=== PATIENT | female | born 1960 | race Caucasian/White ===

== ENCOUNTER 2021-06-22 21:07 | Observation (INO) | payer OTHER ==
[2021-06-22] MEDS ORDERED: ONDANSETRON 4 MG/2 ML VIAL ONE (21:28)
[2021-06-22] MEDS ORDERED: HYDROMORPHONE HCL 2 MG/ML inj ONE (21:28)
[2021-06-22 22:48] LABS: Absolute Lymphocytes (CBC) 0.9 K/uL (0.7-4.9); Basophils % 0.4 % (0-1.3); Hematocrit 33.7 % (36.0-45.0); Lymphocytes % 10.3 % (15.3-44.8); MPV 8.4 fL (7.6-11.3); RBC Red Blood Cell Count 4.54 M/uL (3.86-4.86)
[2021-06-22 22:57] LABS: ALT/SGPT 24 U/L (12-78); AST/SGOT 18 U/L (15-37); Albumin 2.6 g/dL (3.4-5.0); Alkaline Phosphatase 147 U/L (45-117); BUN Blood Urea Nitrogen 11 mg/dL (7-18); Bicarbonate 24 mmol/L (21-32); Bilirubin Direct 0.2 mg/dL (0-0.2); Bilirubin Total 0.4 mg/dL (0.2-1.0); Glucose Level 139 mg/dL (74-106); Potassium 3.8 mmol/L (3.5-5.1); Protein, Total 6.9 g/dL (6.4-8.2); Sodium Level 140 mmol/L (136-145)
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
--- NOTE | 2021-06-23 07:17 | RAD REPORT ---
EXAM DESCRIPTION: RADTib Fib Left06/22/2021 10:19 pm CLINICAL HISTORY: Left leg pain FINDINGS: Very suboptimal views of the right knee. Mild depression of the tibial plateau. It is recommended that the patient have complete three-view se timothy of the right knee with better positioning for further evaluation. Bones are osteoporotic.
--- NOTE | 2021-06-23 07:18 | RAD REPORT ---
EXAM DESCRIPTION: RAD - Tib Fib Right - 06/22/2021 10:19 pm CLINICAL HISTORY: Right leg pain FINDINGS: No acute fracture seen of the mid and distal tibia/fibula. Bones are osteoporotic
[2021-06-23] MEDS ORDERED: IBUPROFEN 200 MG TAB PO ONE (18:44)
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
[2021-06-23 21:12] VITALS: BMI 23.6
[2021-06-23 21:28] VITALS: O2SAT 97
[2021-06-23] MEDS ORDERED: ACETAMINOPHEN 500 MG TAB PO PRN (21:42)
[2021-06-23] MEDS ORDERED: ONDANSETRON 4 MG/2 ML VIAL IV PRN (21:42)
[2021-06-23] MEDS: INSULIN -REGULAR HUMAN 50 UNIT/0.5 ML ML SQ SCH (21:42)
[2021-06-23] MEDS: TRAMADOL HCL 50 MG TAB PO PRN (22:28)
[2021-06-24] MEDS: TRAMADOL HCL 50 MG TAB PO PRN (00:52)
[2021-06-24] MEDS: INSULIN -REGULAR HUMAN 50 UNIT/0.5 ML ML SQ SCH ×2 (07:30→11:30)
[2021-06-24 07:54] LABS: Absolute Lymphocytes (CBC) 1.1 K/uL (0.7-4.9); Basophils % 0.5 % (0-1.3); Hematocrit 32.4 % (36.0-45.0); Lymphocytes % 18.4 % (15.3-44.8); MPV 8.3 fL (7.6-11.3); RBC Red Blood Cell Count 4.43 M/uL (3.86-4.86)
[2021-06-24] MEDS ORDERED: ENOXAPARIN 40 MG/0.4 ML SQ SCH (09:00)
[2021-06-24 11:14] LABS: ALT/SGPT 20 U/L (12-78); AST/SGOT 19 U/L (15-37); Albumin 2.4 g/dL (3.4-5.0); Alkaline Phosphatase 111 U/L (45-117); BUN Blood Urea Nitrogen 14 mg/dL (7-18); Bicarbonate 25 mmol/L (21-32); Ferritin 161.2 ng/mL (8-388); Folic Acid, (Folate) 9.4 ng/mL (3.1-17.5); Glucose Level 114 mg/dL (74-106); HDL Cholesterol 37 mg/dL (40-60); LDL Cholesterol, Calculated 46 (<130); Phosphorus 2.7 mg/dL (2.5-4.9); Potassium 3.7 mmol/L (3.5-5.1); Protein, Total 6.7 g/dL (6.4-8.2); Sodium Level 139 mmol/L (136-145); Transferrin 191 mg/dL (200-360)
[2021-06-24 12:16] VITALS: BP 119/67; TEMP 97.3
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
== END 2021-06-24 16:10 | disposition home or self-care (01) ==
LOC: ER 21:07 → ERHOLD 06-23 19:04 → 2ND 06-23 20:53
PROVIDERS: ADMIT Internal Medicine; ATTEND Internal Medicine
DX: M79.605 Pain in left leg (principal); M79.604 Pain in right leg; D50.9 Iron deficiency anemia, unspecified; Z99.3 Dependence on wheelchair; Z59.00 Homelessness unspecified; J44.9 Chronic obstructive pulmonary disease, unspecified; E46 Unspecified protein-calorie malnutrition; Z68.23 Body mass index [BMI] 23.0-23.9, adult; Z20.822 Contact with and (suspected) exposure to COVID-19
CPT/HCPCS: 85025 ×2; 80048; 36415 ×2; 83735; 84100; 80061; 82947 ×2; 80076; 84443; 83036; 84439; 82728; 82746; 82607; 83540; 80053; 84466; 73590 ×2; 96375; 96374; 99284; U0003; J1650; J1170; J2405; G0378 ×3

== ENCOUNTER 2023-10-24 16:44 | Emergency (ER) | payer OTHER ==
--- OUTSIDE RECORDS SUMMARY | 2023-10-24 16:47 | XMS REPORT | Continuity of Care Document ---
Author Name Unknown Address [address] [place] [address] [facility] thconnect Address [address] [place] [address] Care Team Providers Care Orthodontist Assistant Name Role Phone Pcp, Patient Does Not Have A Primary Care Physic james Peggy Hutton Attending Clinician Unavailable Ousmane Samaniego Attending Clinician Unavailable Kay Chan MD Attending Clinician [phone] Doctor Unassigned, [place] Attending Clinician U gustavo Garcia RN, Lauren Caballero Attending Clinician Unavail able KAY CHAN Attending Clinician UnavailElmer Gabriel MD Attending Clinician [phone] Phoebe Dubois LMSW Attending Clinician [phone] [place] Attending Clinician Unavailable Toshia Gary MD Attending Clinician Alon RAMOS, Arthur Correa Attending Clinician [phone] Tre Valverde MD Attending Clinician [phone] [place] DO Attending Clinician [phone] Ernesto HUYNH, Vivek B Attending Clinician [phone] Galindo Escamilla MD Attending Clinician [phone] GALINDO ESCAMILLA Attending Clinician Unavailable Peggy Hutton Admitting Clinician Unavailable Physician, No Primary or Family Admitting Clinic james Unavailable KAY CHAN Admitting Clinician UnavailKay Bill MD Admitting Clinician [phone] TOSHIA GARY Admitting Clinician UnavailTohsia Rodriguez MD Admitting Clinician [phone] Payers Payer Name Policy Type Policy Number Effective Date Expirati on Date Source Problems Condition Name Condition Details Condition Category Status Onset Date Resolution Date Last Treatment Date Treating Clinician Comments Source Trauma Trauma Disease Active 2022-07 0- 00:00: 00 [facility] S/P AKA (above knee amputation ) unilateral , right S/P AKA (above knee amputation ) unilateral , right Disease Active 2-18 00:00: 00 Overview: Formattin g of this note might be different from the original. 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 Disease Active 2-12 00:00: 00 [facility] Homeless Homeless Disease Active 2-12 00:00: 00 [facility] Noncomplia nce by refusing interventi on or support Noncomplia nce by refusing interventi on or support Disease Recurre nce 2-12 00:00: 00 [facility] Personalit y disorder Personalit y disorder Disease Active 2-12 00:00: 00 [facility] Total self-care deficit Total self-care deficit Disease Recurre nce 2-12 00:00: 00 [facility] 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 Disease Active 2-04 00:00: 00 [facility] Atypical femoral fracture, unspecifie d, initial encounter for fracture Atypical femoral fracture, unspecifie d, initial encounter for fracture Disease Active 2-03 00:00: 00 [facility] Allergies, Adverse Reactions, Alerts Allergy Name Allergy Type Status Severity Reaction(s) Onset Date Inactive Date Treating Clinician Comments Source No Known Allergie s DA Active U 3-09 00:00: 00 [facility] Penicill ins Propensi ty to adverse reaction s Active Rash 2- 00:00: 00 [facility] PENICILL INS Drug Class Active Med Rash 2-02 00:00: 00 [facility] Penicill ins Propensi ty to adverse reaction s Active Rash 2- 00:00: 00 [facility] Social History Social Habit Start Date Stop Date Quantity Comments Source Exposure to SARS-CoV-2 (event) Not sure [facility] History of tobacco use Cigarette Smoker [facility] of Social function 2023-04-30 00:00:00 2023-04-30 00:00:00 [facility] Tobacco use and exposure 2023-04-28 00:00:00 2023-04-28 00:00:00 Smokeless tobacco non-user [facility] Sex Ass[birth year] At 1960 00:00:00 1960 00:00:00 [facility] Smoking Status Start Date Stop Date Source Smokes tobacco daily 2023-04-28 00:00:00 [facility] Medications Ordered Medication Name Filled Medication Name Start Date Stop Date Current Medication? Ordering Clinician Indication Dosage Frequency Signature (SIG) Comments Components Source HYDROcodone -acetaminop hen 5-325 mg tablet 2022-07 00:00: 00 Yes 4647 1{tbl} Take 1 tablet by mouth every 6 (six) hours as needed for Pain (scale 4-6) for up to 7 doses. Indication s: acute pain [facility] acetaminoph en 325 mg tablet 2022-07 00:00: 00 Yes [id number] 650mg Take 2 tablets by mouth every 6 (six) hours as needed for Pain (scale 4-6). [facility] ibuprofen 400 mg tablet 2022-07 00:00: 00 Yes [id number] 400mg Take 1 tablet by mouth every 6 (six) hours as needed for Pain (scale 4-6). [facility] methocarbam oL 500 mg tablet 2022-07 00:00: 00 Yes [id number] 500mg Take 1 tablet by mouth 3 (three) times daily as needed for Other (muscle spasms). [facility] HYDROcodone -acetaminop hen (NORCO) 5-325 mg tablet 2022-07 00:00: 00 Yes 4647 1{tbl} Take 1 tablet by mouth every 6 (six) hours as needed for Pain (scale 7-10) for up to 15 doses. Indication s: acute pain [facility] cephALEXin 250 mg capsule 2022-07 00:00: 00 05-08 04:59 :00 No [id number] 500mg Take 2 capsules by mouth 4 (four) times daily for 3 days. [facility] cephALEXin (KEFLEX) capsule 500 mg 2022-07 21:00: 00 05-06 20:59 :00 No 500mg 500 mg, Oral, QID, 28 doses, First dose on 04/29/23 at 1600, Last dose on 05/06/23 at 1200, HUSEYIN
Re ason for Anti-Infec tive: Empiric Non-Surgic al Prophylaxi s
Durat ion of therapy: 5 days
Sp ecific indication : 7 days [facility] enoxaparin (LOVENOX) injection 30 mg 2022-07 01:00: 00 Yes 30mg 30 mg, Subcutaneo us, Q12H, First dose on 04/28/23 at 2000, Until Discontinu ed, Routine [facility] ibuprofen (IBU) tablet 400 mg 2022-07 23:00: 00 Yes 400mg 400 mg, Oral, Q6H, First dose on 04/28/23 at 1800, Until Discontinu ed, Routine [facility] morpHINE (2 mg/mL) injection 4 mg 2022-07 19:44: 02 04-30 17:06 :24 No 4mg 4 mg, Slow IV Push, Q4HPRN, Starting on 04/28/23 at 1444, Until 04/30/23 at 1206, Routine, Pain (scale 7-10), Pain unrelieved by scheduled analgesics [facility] ceFAZolin (ANCEF) 2,000 mg in NaCl 0.9% (NS) 100 mL MINI-BAG 2022-07 10:00: 00 04-28 10:35 :00 No 2000mg 2,000 mg, Intravenou s, ONCE, 1 dose, On 04/28/23 at 0500, Administer over 30 Minutes, 100 mL
Reas on for Anti-Infec tive: Empiric Non-Surgic al Prophylaxi s
Durat ion of therapy: 72 hours [facility] FENTanyl PF (SUBLIMAZE (PF)) injection 100 mcg 2022-07 08:45: 00 04-28 07:35 :00 No 100ug 100 mcg, Slow IV Push, ONCE, 1 dose, On 04/28/23 at 0345, Routine [facility] FENTanyl PF (SUBLIMAZE (PF)) injection 50 mcg 2022-07 07:45: 00 04-28 06:52 :00 No 50ug 50 mcg, Slow IV Push, ONCE, 1 dose, On 04/28/23 at 0245, HUSEYIN [facility] methocarbam oL (ROBAXIN) tablet 500 mg 2022-07 07:00: 00 Yes 500mg 500 mg, Oral, QID, First dose on 04/28/23 at 0200, Until Discontinu ed, Routine [facility] acetaminoph en (TYLENOL) tablet 650 mg 2022-07 07:00: 00 Yes 650mg 650 mg, Oral, Q6H, First dose on 04/28/23 at 0200, Until Discontinu ed, Routine [facility] HYDROcodone -acetaminop hen (NORCO 5) 5-325 mg tablet 1 tablet 2022-07 06:50: 40 Yes 1{tbl} 1 tablet, Oral, Q6HPRN, Starting on 04/28/23 at 0150, Until Discontinu ed, Routine, Pain (scale 4-6) [facility] HYDROcodone -acetaminop hen 5-325 mg tablet 08-29 00:00: 00 09-02 05:59 :00 No 4647 1{tbl} Take 1 tablet by mouth every 6 (six) hours as needed for Pain (scale 7-10) for up to 3 days. Indication s: acute pain [facility] No known medications 08-12 23:44: 31 No [facility] Immunizations Ordered Immunization Name Filled Immunization Name Date Status Comments Source TD Pres-Free Unknown Completed [facility] TD Pres-Free Unknown Completed [facility] TD Pres-Free Unknown Completed [facility] TD Pres-Free Unknown Completed [facility] Vital Signs Vital Name Observation Time Observation Value Comments S mai Systolic blood pressure 2023-05-05 13:07:00 130 mm[Hg] [facility] Diastolic blood pressure 2023-05-05 13:07:00 64 mm[Hg] [facility] Heart rate 2023-05-05 13:07:00 69 /min [facility] Body temperature 2023-05-05 13:07:00 36.06 Litzy [facility] Respiratory rate 2023-05-05 13:07:00 16 /min [facility] Oxygen saturation in Arterial blood by Pulse oximetry 2023-05-05 13:07:00 96 /min [place] [facility] Body height 2023-05-03 13:16:00 152.4 cm [facility] Body weight 2023-05-03 13:16:00 54.432 kg [facility] BMI 2023-05-03 13:16:00 23.44 kg/m2 [facility] Procedures Procedure Date / Time Performed Performing Clinician Source EXTERNAL PROVIDER RECORDS 2023-05-10 05:01:00 Doctor Unassigned, [place] [facility] PHOSPHORUS 2023-05-02 11:17:00 Óscar Liu Lita [facility] MAGNESIUM 2023-05-02 11:17:00 Óscar Liu [facility] BASIC METABOLIC PANEL (NA, K, CL, CO2, GLUCOSE, BUN, CREATININE, CA) 2023-05-02 11:17:00 Suma Liu [facility] PHOSPHORUS 2023-04-30 09:42:00 [facility] ABORH CONFIRMATION (LAB ONLY) 2023-04-30 01:28:00 Elmer Duran [facility] MRSA / MSSA SCREEN BY PCRJANES 2023-04-29 09:41:00 Iban Allred [facility] PHOSPHORUS 2023-04-29 09:40:00 [facility] MAGNESIUM 2023-04-29 09:40:00 Brigida [facility] BASIC METABOLIC PANEL (NA, K, CL, CO2, GLUCOSE, BUN, CREATININE, CA) 2023-04-29 09:40:00 Iban Allred [facility] CBC WITH DIFF 2023-04-29 09:40:00 Iban Allred [facility] javier [facility] XR TIBIA FIBULA 2 VW LEFT 2023-04-28 09:20:00 Saravanan Alonzo [facility] XR TIBIA FIBULA 2 VW LEFT 2023-04-28 05:58:47 Lori Silveira [facility] XR FOOT <3 VW LEFT 2023-04-28 05:58:34 Lori Silveira [facility] XR CHEST 1 VW 2023-04-28 05:39:40 Ra brenda Silveira [facility] LIPASE 2023-04-28 05:33:00 Elmre Duran [facility] COMP. 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 2021-09-12 06:01:00 Doctor Astrid ssigned, [place] [facility] Encounters Start Date/Time End Date/Time Encounter Type Admission Type Attending Clinicians Care Facility Care Department Encounter ID Source 2023-09-15 01:02:00 2023-09-20 15:31:00 Inpatient EM BrennenPeggy HCAPM MEDI.01 [id number] [facility] 2023-09-15 08:19:00 2023-09-15 08:19:00 Outpatient Ousmane Samaniego HCACL LABO [id number] [facility] 2023-05-10 00:00:00 2023-05-10 00:00:00 Letter (Out) Kay Chan [facility] 1.840.114 350.1.13.10 4.2.7.2.686 [id number] [facility] 2023-05-10 00:00:00 2023-05-10 00:00:00 Orders Only Doctor Unassigned, [place] [facility] 1.2840.114 350.1.13.10 4.2.7.2.686 [id number] [facility] 2023-05-07 00:00:00 2023-05-07 00:00:00 Transition of Care GabbyLauren jacob [facility] 1.0.114 350.1.13.10 4.2.7.2.686 [id number] [facility] 2023-04-27 23:59:00 2023-05-05 15:15:00 Outpatient T KAY CHAN [facility] STR [id number] [facility] 2023-04-27 23:59:00 2023-05-05 15:15:00 Hospital Encounter Elmer Duran [facility] 1..114 350.1.13.10 4.2.7.2.686 [id number] [facility] 2021-09-12 00:00:00 2021-09-12 00:00:00 Orders Only Doctor Unassigned, [place] [facility] 1..114 350.1.13.10 4.2.7.2.686 [id number] [facility] 2021-08-31 00:00:00 2021-08-31 00:00:00 Patient Outreach Phoebe Dubois [facility] 1..114 350.1.13.10 4.2.7.2.686 [id number] [facility] 2021-08-30 00:00:00 2021-08-30 00:00:00 Transition of Care Anshu Garcianomi YOUNG 1.0.114 350.1.13.10 4.2.7.2.686 [id number] [facility] 2021-08-30 00:00:00 2021-08-30 00:00:00 Orders Only Doctor Unassigned, [place] [facility] 1.840.114 350.1.13.10 4.2.7.2.686 [id number] [facility] 2021-08-11 07:47:00 2021-08-29 17:30:00 Inpatient [place] [facility] [id number] [facility] 2021-08-11 07:47:00 2021-08-29 17:30:00 Hospital Encounter Toshia Gary, [facility] 1.840.114 350.1.13.10 4.2.7.2.686 [id number] [facility] 2021-08-11 07:47:00 2021-08-29 17:30:00 Inpatient X ROB[facility]E [facility] [id number] [facility] 2021-08-23 07:40:00 2021-08-23 10:25:00 Surgery Toshia Gary [facility] 1.840.114 350.1.13.10 4.2.7.2.686 [id number] [facility] 2021-08-10 20:22:00 2021-08-11 06:24:00 Emergency [facility]rozco [facility] 1.840.114 350.1.13.10 4.2.7.2.686 [id number] [facility] 2021-08-10 20:22:00 2021-08-11 06:24:00 Emergency X GALINDO ESCAMILLA [facility] ERT [id number] [facility] Results Test Description Test Time Test Comments Results Resul t Comments Source - XR FOOT 3+V LT 2023-09-16 08:40:00 [facility] 1960 Sex: F Name: FLORY SHAFER [place] : 1960 Age/S: 63 / F [address] [place] Unit #: [id number] Loc: [place] [address] Phys: Liberty Burgess DPM Acct: [id number] Dis Date: Status: ADM IN PHONE #: [phone] Exam Date: 09/15/2023 1415 FAX #: Reason: wound EXAMS: CPT: [id number] XR FOOT 3+[place] [address] Fluoro Time: DAP (Gy m2): Air Kerma (mGy): Left foot, 3 views Location Code: D4 CLINICAL HISTORY: wound COMMENTS: Marked osteopenia obscures the detail of the study. There is a subacute to chronic appearing fracture through the mid shaft of the 1st metatarsal. Moderate arthrosis seen throughout the MTP and interphalangeal joints. Prominent plantar and retrocalcaneal enthesophytes are seen with diffuse soft tissue swelling. IMPRESSION: 1. Limited examination due to the extensive osteopenia with diffuse soft tissue swelling and arthrosis along with subacute to chronic appearing transverse fracture through the 1st metatarsal shaft. at 0840 Reported and signed by: Carl Kuo M.D. CC: Peggy Hutton MD; Liberty Burgess DPM PAGE 1 Signed Report Name: FLORY SHAFER [place] : 1960 Age/S: 63 / F [address] [place] Unit #: [id number] Loc: [place] [address] Phys: Liberty Burgess DPM Acct: [id number] Dis Date: Status: ADM IN PHONE #: [phone] Exam Date: 09/15/2023 1415 FAX #: Reason: wound EXAMS: CPT: [id number] XR FOOT 3+[place] [address] Fluoro Time: DAP (Gy m2): Air Kerma (mGy): (Continued) Technologist: Melonie Coyle, RT(R) Trnscb Date/Time: 09/16/2023 (08) [email or web address] Orig Print D/T: S: 09/16/2023 (0439) PAGE 2 Signed Report - XR TIBIA/FIBULA 2 V LT 2023-09-15 15:36:00 [facility] 1960 Sex: F Name: FLORY SHAFER [facility] : 1960 Age/S: 63 / F [address] [place] Unit #: [id number] Loc: [place] [address] Phys: Jenifer,Dhvanil K DPM Acct: [id number] Dis Date: Status: ADM IN PHONE #: [phone] Exam Date: 09/15/2023 1420 FAX #: Reason: fracture EXAMS: CPT: [id number] XR TIBIA/FIB[place] [address] Fluoro Time: DAP (Gy m2): Air Kerma (mGy): Left tibia/fibula, 2 views. Location code: D4 CLINICAL HISTORY: fracture COMPARISON: None. COMMENTS: AP and lateral views of the left tibia and fibula demonstrate fractures of the mid to distal thirds of the tibia and fibula with some sclerosis and early healing suggesting subacute fractures. Soft tissue swelling is noted. No other fractures seen. IMPRESSION: 1. Fractures of the mid to distal thirds of the tibia and fibula with minimal displacement. at 1536 Reported and signed by: Carl Kuo M.D. CC: Peggy Hutton MD; Liberty Burgess DPM PAGE 1 Signed [facility] 1960 Age/S: 63 / F [address] [place] Unit #: [id number] Loc: [place] [address] Phys: Liberty Burgess DPMadeline Acct: [id number] Dis Date: Status: ADM IN PHONE #: [phone] Exam Date: 09/15/2023 1420 FAX #: Reason: fracture EXAMS: CPT: [id number] XR TIBIA/FIBUL[place] 2 [place] [address] Fluoro Time: DAP (Gy m2): Air Kerma (mGy): (Continued) Technologist: Melonie Coyle RT(R) Trnscb Date/Time: 09/15/2023 (153) [email or web address] Orig Print D/T: S: 09/15/2023 (1539) PAGE 2 Signed Report - [facility] 2023-09-15 08:53:00 [facility] 1960 Sex: F Name: FLORY SHAFER [place] : 1960 Age/S: 63 / F [address] [place] Unit #: [id number] Loc: [place] [address] Phys: AsamahSravanthi Acct: [id number] Dis Date: Status: ADM IN PHONE #: [phone] Exam Date: 09/15/2023814 FAX #: Reason: left foot wound EXAMS: CPT: [id number] DUP LE ART SHIVA [address] BILATERAL LOWER EXTREMITY ARTERIAL DOPPLER: Location code: D4 CLINICAL HISTORY: Bilateral leg pain with left foot wound TECHNIQUE: Stoll scale, color, and duplex spectral waveform analysis sonography of the arteries of the bilateral lower extremities was performed. No prior study is available for comparison. FINDINGS: Previous BKA amputation on the right. Triphasic waveforms in the right common femoral and deep femoral arteries with monophasic waveforms in plaque seen in the superficial femoral artery proximally and mid. No high velocity stenosis on the right. On the left there are dampened monophasic waveforms throughout extending from the common femoral down to the dorsalis pedis artery with nonvisualization possible occlusion of the peroneal artery. Moderate diffuse plaque seen. No high velocity stenosis noted. 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 Previous BKA on the right. at 0853 Reported and signed by: Carl Kuo M.D. CC: Sravanthi Simms; Ousmane Samaniego MD Technologist: Esther Marquez [facility] Date/Time: 09/15/2023 (0853) Francis1 PAGE 1 Signed Report Name: FLORY SHAFER [place] : 1960 Age/S: 63 / F [address] [place] Unit #: [id number] Loc: [place] [address] Phys: Sravanthi Simms Acct: [id number] Dis Date: Status: ADM IN PHONE #: [phone] Exam Date: 09/15/2023814 FAX #: Reason: left foot wound EXAMS: CPT: [id number] DUP LE ART SHIVA 82417 (Continued) Orig Print D/T: S: 09/15/2023 (0856) Probe: PAGE 2 Signed Report [facility] 12:53:54* Test Item Value Reference Range Interpretation Comme nts PHOSPHORUS (test code = 3644599157) 3.4 mg/dL 2.5-5.0 Lab Interpretation (test cod e = 17726-0) Normal [facility] (NA, K, CL, CO2, GLUCOSE, BUN, CREATININE, CA)2023-05-02 12:53:53* Test Item Value Reference Range Interpretation Comme nts NA (test code = 0797715099) 139 mmol/L 135-145 K (test code = 9533129245) 4.1 mmol/L 3.5-5.0 CL (test code = 4721075656) 107 mmol/L 98-108 CO2 TOTAL (test code = 7407388938) 26 mmol/L 23-31 AGAP (test code = 2157607916) 6 2-16 BUN (test code = 1640450301) 11 mg/dL 7-23 GLUCOSE (test code = 5041403824) 115 mg/dL 70-110 H CREATININE (test code = 9412743274) 0.30 mg/dL 0.50-1.04 L CALCIUM (test code = 8554732766) 8.3 mg/dL 8.6-10.6 L eGFR (test code = 1700609778) 226.2 mL/min/1.73m2 DODIE (test code = DODIE) Association of Glomerular Filtration Rate (GFR) and Staging of Kidney Disease* + --+ --+ ------+| GFR (mL/min/1.73 m2) ?| With Kidney Damage ?| ?Without Kidney Damage+ --------+ --------+ +| ?>90 ?| ?Stage one ?| ? Normal ?+ ---+ ---+ -------+| ?60-89 ?| ?Stage two ?| ? Decreased GFR ? + --+ --+ ------+| ?30-59 ?| ?Stage three ?| ? Stage three ? + --+ --+ ------+| ?15-29 ?| ?Stage four ? | ? Stage four ?+ ---+ ---+ -------+| ?<15 (or dialysis) ? ?| ?Stage five ? | ? Stage five ?+ ---+ ---+ -------+ *Each stage assumes the associated GFR level has been in effect for at least three months. ?Stages 1 to 5, with or without kidney disease, indicate chronic kidney disease. Notes: Determination of stages one and two (with eGFR >59mL/min/1.73 m2) requires estimation of kidney damage for at least three months as defined by structural or functional abnormalities of the kidney, manifested by either:Pathological abnormalities or Markers of kidney damage (including abnormalities in the composition of the blood or urine or abnormalities in imaging tests). Lab Interpretation (test code = 70717-8) Abnormal [facility] Time / [id number] 06:00:36* Test Item Value Reference Range Interpretation Comme [facility] PROTIME PATIENT (test code = 5964-2) 12.4 See_Comment [Automated StudioSnaps] The system which generated this result transmitted reference range: 10.1 - 12.6 Seconds. The reference range was not used to interpret this result as normal/abnormal. INR (test code = 6301-6) 1.1 Normal INR <1.1; Warfarin Therapeutic range 2.0 to 3.0 or 2.5 to 3.5, depending upon the indications. Lab Interpretation (test code = 91993-2) Normal [facility] HospitalaPTT2023-10-21 06:00:36* Test Item Value Reference Range Interpretation Comme [facility] APTT Patient (test code = 3173-2) 31 See_Comment [Automated StudioSnaps] The system which generated this result transmitted reference range: 26 - 36 Seconds. The reference range was not used to interpret this result as normal/abnormal. Lab Interpretation (test code = 69806-7) Normal [facility] Notes Date/Time Note Provider Source 2023-10-13 09:38:00 [id number]/v [id number] 6-[address] [address] PATIENT NAME: FLORY SHAFER ADMIT DATE: 09/15/23ACCOUNT NO: [id number] ROOM NO: [id number] AGE: 63 REPORT TYPE: 360 - QUERY RESPONSE DOCUMENT SEX: F ADMITTING PHYSICIAN: Peggy Hutton MD ATTENDING PHYSICIAN: Peggy Hutton MD Provider Query QUERY TEXT: Relationship Procedure Condition 360MD Query related questions should be directed to: [facility] [place] Coding query helpline Please clarify the etiology of the diagnosis [CELLULITIS] and its relationship, if any, to the procedure [AKA AMPUTATION]. The classification system provides these guidelines for intraoperative and/or post procedure conditions/diagnoses:-- Not all post procedure conditions are classified as complications.- There must be an unexpected or abnormal occurrence.- There must be a documented cause and effect relationship between the condition and the care.- There must be an indication that it is a complication-- The term ''complication'' as used in ICD-10-CM does not imply that improper or inadequate care is responsible for the problem-- There is no time limit for development of complication-- The term postoperative requires clarity to determine if it is a complication or condition resulting from medical/surgical care that is a residual condition of the procedure.-- When laceration/tear/enterotomy occurs during a procedure, the physician must provide clarity as to whether the tear was an incidental occurrence inherent to the procedure or clinically significant (complication).-- When hemorrhage occurs with procedure, clarify if it is expected or unexpected as well as abnormal amount of blood loss and the organ or tissue structure involved (i.e., subcutaneous, fascia, specific organ, specific artery/vein, etc.). The patient's Clinical Indicators include: Diagnosis, Assessment Plan:Problem List/A P:1.Cellulitis of left leg 2.Gangrene of left foot 3.History of right above knee amputation-H/P.Left foot ischemic ulceration with surrounding cellulitis.There is aconcern of underlying osteomyelitis.-PODIARTY CONSULT 09/15/2023ssessment:1.Left foot infected wound with ischemic changes, r/o osteomyelitis.2.PVD.3.Recent left tib-fib fracture.-Infect disease 09/16/2023 #Right AKA-[place] still present, according to pt states chani been on for 2 years.Shehas refused the removal of the chani-wound care provider consulted. #H/O Osteogenesis imperfecta- immobility-discharge summaryOptions provided:-- Routine, inherent or integral-- Unexpected or abnormal-- Unrelated, Please specify the cause if known.-- Other - I will add my own diagnosis-- Dismiss - Not applicable / Not valid-- Dismiss - Clinically unable to determine / Unknown-- Assign to another provider QUERY RESPONSE: This was unrelated to procedure/due to other cause. Query created by: Jalil Lynn on 09/22/2023 12:33 AM at 0938 PATIENT NAME: FLORY SHAFER noteL.[id number] for patient okpnFPKPMGHVZNRCWY2904-63-71X80:39:28 [facility] 2023-09-20 21:01:00 [id number]+tjpJG2AZ7 fCpC/R0cTX55Z+sblJy8HUMx4Tv9565-75-32M72:01:00 [facility] ([facility])Hospitalist Discharge SummaryREPORT#:[id number] REPORT STATUS: SignedREPORT INITIALIZATION DATE:09/20/23 TIME:2100 PATIENT: FLORY SHAFER UNIT #: [id number]#: [id number] [address] [birth year] AGE: 63 SEX: F ATTEND: Peggy Hutton MDA AUTHOR: Peggy Hutton MDREPT SERVICE DT/TIME: 09/20/232100* ALL edits or amendments must be made on the electronic/computer document * General InformationDate of admission:Observation Start Date: Date of admission: 09/15/23 Discharge date: 09/20/23Admission diagnosis:Left foot cellulitis and gangreneRight AKAHistory of ulcer diseaseTib-fib fractureDischarge diagnosis:Left foot cellulitis and gangreneRight AKAHistory of ulcer diseaseTib-fib fractureHospital course:Ms. Shafer is 63-year-old female with history of osteogenesis imperfecta, right AKA who presented to the hospital with left foot cellulitis and gangrene. Patient was followed closely by volunteer services director. She however continued to refuse care while inpatient. She had notable tib-fib fracture of the left extremity. Patient is bedbound and nonweightbearing. She remained stable for discharge.Consultants: burn/wound, podiatry ObjectiveVS/I OLast Documented: Result Date Time Pulse Ox 98 09/19 07 B/P 102/69 09/19 07 B/P Mean 80 09/19 07 O2 Delivery Room air 09/19 733 Temp 98.2 09/19 733 Pulse 90 09/19 0734 Resp 16 09/19 07 O2 Flow Rate 2 09/14 0400 24 hour I O ending at 0700: 09/19 0700 09/18 1900 Intake Total 2436 600 Output Total 2500 Balance -64 600 Intake, Free 1000 Water Intake, Oral 1200 600 Intake, Other 236 Number 1 Bowel Movements Output, Urine 2500 Head/Eyes: atraumatic, normocephalicENT: normal dentition, normal ear left, normal ear right, normal nose, normal pharynx, normal sinusNeck: full range of motion, non-tender, normal thyroid, supple/no meningismus, no bruit/NL carotids, no JVD, no masses or swellingCardiovascular: normal capillary refill, regular rate rhythmRespiratory: symmetric expansion, no distressExtremities: no edemaNeuro/TECHNOLOGY AUDITOR: alert, oriented X 3Skin: abnormal color Discharge Instructions PCPDischarge to: Home Health wPlan of CareAdditional Discharge Routines: PCP Follow-Up, Aerospace Manager Follow-UpDiet: CardiacActivity: Light Duty, No Weight Bearing Left Follow-up AppointmentsPCP follow-up: PCP: Jordan Roberts md PCP follow up timeframe: In 1-2 weeksConsulting provider 1: Provider 1: Vega Soto III, MD Specialty: Orthopaedic Surgery Consult follow up timeframe: In 1-2 weeks at 1217 RPT #: [id number] OF REPORT DSDischarge mysejlc4190-27-27E97:01:00L.[id number] ailable for patient ilrwKHNZYBMQUNKDHT2271-18-20W97:17:57 [facility] 2023-09-20 17:40:00 [id number] uQbRBGq6eaPkFfaY3OdrjVb+3VL7904-70-46O61:40:00 [facility] ([facility])Wound Care Progress NoteREPORT#:[id number] REPORT STATUS: SignedREPORT INITIALIZATION DATE:09/20/23 TIME:1739 PATIENT: FLORY SHAFER UNIT #: [id number]#: [id number] [address] [birth year] AGE: 63 SEX: F ATTEND: Peggy Huttno [facility] AUTHOR: Ángel Dawn MDREPT SERVICE DT/TIME: 09/20/23 174* ALL edits or amendments must be made on the electronic/computer document * SubjectiveChief complaint:Wound CareHPI:no acute eventsUnable to obtain: uncooperative Objective GeneralVS:Last Documented: Result Date Time Pulse Ox 98 09/19 0734 B/P 102/69 09/19 0734 B/P Mean 80 09/19 0734 O2 Delivery Room air 09/19 07 Temp 98.2 09/19 0734 Pulse 90 09/19 0734 Resp 16 09/19 0734 O2 Flow Rate 2 09/14 0400 PATIENT WEIGHT: Weight (lb): Weight (oz): Weight (kg): 63.636 Medications:Active Meds + DC'd Last 24 HrsLactated Ringer's (LACTATED RINGERS) 1,000 ML .[id number] IV (DCD) Famotidine (PEPCID) 20 MG Q12HR PO (DCD) Cefazolin Sodium (KEFZOL) 1 GM Q8HR IV (DCD) Sterile Water (WATER FOR INJECTION) 10 MLDocusate Sodium (COLACE) 100 MG BID PRN PRN PO (DCD) Hydralazine HCl (APRESOLINE) 10 MG Q6H PRN PRN IV (DCD) Hydrocodone Bitart/Acetaminophen (NORCO 7.5/325) 1 TAB Q6H PRN PRN PO (DCD) Ondansetron HCl (ZOFRAN ODT) 4 MG Q4H PRN PRN PO (DCD) Tramadol HCl (ULTRAM) 50 MG Q6H PRN PRN PO (DCD) Dietitian Nutrition assessmentThe data set between the solid lines has been imported from the dietitian's assessment. BMI Calculated: 24.9Nutrition related diagnosis: Nutrition diagnosis details: Nutrition problem: Nutrition etiology: Nutrition signs and symptoms: Nutrition prescription: Dietitian name: Assessment completed: Physical ExamGeneral appearance: alertHead/eyes: atraumaticENT: moist mucosal membranesCardiovascular: no rubAbdomen: non-tenderExtremities: no edemaNeuro/TECHNOLOGY AUDITOR: alertSkin: lesions (multiple abrasions), rash (cellulitis of left foot) Wound AssessmentWound Assessment 1: Type/cause: arterial Wound location: foot (left) Tissue layers: with muscle necrosis Site condition: erythema, eschar, necrotic tissue Diagnosis, Assessment PlanProblem List/A P: 1. Pressure injury of deep tissue of sacral region antifungal barrier cream once per RN shift. 2. Pressure-induced deep tissue damage of unspecified buttock antifungal barrier cream once per RN shift. 3. Multiple abrasions stable; cont to leave open to air 4. Gangrene of left foot stable; defer mgmt to Dr. Burgess 5. Cellulitis of left leg improving; defer mgmt to ID, primary 6. Above knee amputation of left lower extremity recommend staple removal under general anethesia as pt adamantly refused bedside removal.. Consultants: burn/wound, podiatry at 1742 RPT #: [id number] OF REPORT PNProcedure gqua6955-14-71M63:40:00L.[id number] able for patient aazaBOVHHIYIPXLGBV1577-51-80Z24:42:28 [facility] 2023-09-20 12:18:00 [id number] nIpTyjKqEIue/zCc5i4LhoHK+[facility] B5XUINHNnC6SZvAA/eUqNTH91ec9758-21-29N90:18:00 [facility] ([facility])Podiatry Progress NoteREPORT#:[id number] REPORT STATUS: SignedREPORT INITIALIZATION DATE:09/20/23 TIME:1217 PATIENT: FLORY SHAFER UNIT #: [id number]#: [id number] [address] [birth year] AGE: 63 SEX: F ATTEND: Peggy Hutton MDADM AUTHOR: Liberty Burgess DPMREPT SERVICE DT/TIME: 09/20/23 1218* ALL edits or amendments must be made on the electronic/computer document * SubjectiveHPI:Seen at bedside. Dressings are clean, dry, intact. Reports no pain. No further complaints at this time Review of Systems Free Text ROS NotesFree Text ROS Notes:14 point review of system was conducted and negative except discussed above Objective GeneralVS:Last Documented: Result Date Time Pulse Ox 98 09/19 733 B/P 102/69 09/19 733 B/P Mean 80 09/19 733 O2 Delivery Room air 09/19 733 Temp 98.2 09/19 733 Pulse 90 09/19 733 Resp 16 09/19 733 O2 Flow Rate 2 09/14 0400 PATIENT WEIGHT: Weight (lb): Weight (oz): Weight (kg): 63.636 Medications:Active Meds + DC'd Last 24 HrsLactated Ringer's (LACTATED RINGERS) 1,000 ML .[id number] IV Famotidine (PEPCID) 20 MG Q12HR PO Cefazolin Sodium (KEFZOL) 1 GM Q8HR IV Sterile Water (WATER FOR INJECTION) 10 MLDocusate Sodium (COLACE) 100 MG BID PRN PRN PO Hydralazine HCl (APRESOLINE) 10 MG Q6H PRN PRN IV Hydrocodone Bitart/Acetaminophen (NORCO 7.5/325) 1 TAB Q6H PRN PRN PO Ondansetron HCl (ZOFRAN ODT) 4 MG Q4H PRN PRN PO Tramadol HCl (ULTRAM) 50 MG Q6H PRN PRN PO I O:24 hour I O ending at 0700: 09/19 0700 09/18 1900 Intake Total 2436 600 Output Total 2500 Balance -64 600 Intake, Free 1000 Water Intake, Oral 1200 600 Intake, Other 236 Number 1 Bowel Movements Output, Urine 2500 Dietitian nutrition assessmentThe data set between the solid lines has been imported from the dietitian's assessment. BMI Calculated: 24.9Nutrition related diagnosis: Nutrition diagnosis details: Nutrition problem: Nutrition etiology: Nutrition signs and symptoms: Nutrition prescription: Dietitian name: Assessment completed: Physical ExamGeneral appearance: alert, awake, orientedWound/incision: Location:Left medial foot by the first metatarsal: There is a full-thickness ulceration that measures 3 x 2 x 0.2 cm. The base is 100%. There is no maggots noted in the wound base. The wound does not probe to bone. There is surrounding erythema and warmth. There is no malodor. There is no lymphatic streaking. There is no crepitusHead/Eyes: clear cornea, EOMI, normocephalicENT: normal ear left, normal ear rightNeck: full range of motion, non-tender, no bruit/NL carotidsCardiovascular: normal capillary refillRespiratory: clear to auscultation, no distress, no tendernessAbdomen: soft, no guarding, no reboundGenitourinary: not indicatedExtremities:Left moves all, Left no evidence of DVTLE vascular pulse assess:Nonpalpable L popliteal, Nonpalpable L posterior tibialis, Nonpalpable L dorsalis pedisCapillary refill: Capillary refill (in seconds): > 5 seconds Left footFoot: swelling, contracture flexion at the knee, left right bkaNeuro/TECHNOLOGY AUDITOR: alert, oriented X 3Lymphatics: axilla normal, inguinal normal, no lymphadenopathyPsychiatry: no hallucinations, normal affect, normal judgment/insight, normal mood Diagnosis, Assessment PlanFree Text A P:63-year-old female with a history of osteogenesis imperfecta presents to the hospital with left first metatarsal ischemic ulceration and surrounding cellulitis.The patient is wheelchair-bound. 1. Left foot ischemic ulceration with surrounding cellulitis. There is a concern of underlying osteomyelitis.Wound care: Silver alginate, 4 x 4, paper tape. Recommend daily dressing changes. Recommend clean with normal saline.X-rays orderedDo not get wetElevateRecommend every 2 turns to prevent ulceration.Okay to weight-bear as toleratedAntibiotics as per internal medicine/infectious disease recommendation 2. Lipodermatosclerosis in the presence of concern of peripheral arterial diseaseArterial Dopplers and SUSY reviewed: Concern of stenosis, however the pulses are faintly palpable. This may be due to edema. Recommend continue monitor. If conditions worsen, possible vascular surgery evaluation. I will determine further plans after imaging studies result. Interim, recommendcontinue local wound care and antibiotic therapy. Thank you for the consultation 09/16/23 1. Left foot ischemic ulceration with surrounding cellulitis. There is a concern of underlying osteomyelitis.Wound care: Silver alginate, 4 x 4, paper tape. Recommend daily dressing changes. Recommend clean with normal saline.Foot x-rays pendingDo not get wetElevateRecommend every 2 turns to prevent ulceration.Okay to weight-bear as toleratedAntibiotics as per internal medicine/infectious disease recommendation 2. Lipodermatosclerosis in the presence of concern of peripheral arterial diseaseArterial Dopplers and SUSY reviewed: Concern of stenosis, however the pulses are faintly palpable. This may be due to edema. Recommend continue monitor. If conditions worsen, possible vascular surgery evaluation. 3. Tib-fib fractureRecommend orthopedic consultation. I will determine further plans after imaging studies result. Interim, recommendcontinue local wound care and antibiotic therapy. . Left foot ischemic ulceration with surrounding cellulitis. There is a concern of underlying osteomyelitis.Wound care: Silver alginate, 4 x 4, paper tape. Recommend daily dressing changes. Recommend clean with normal saline.Foot x-rays results reviewed- frature on metatarsal, appears stableDo not get wetElevateRecommend every 2 turns to prevent ulceration.Okay to weight-bear as toleratedAntibiotics as per internal medicine/infectious disease recommendation 2. Lipodermatosclerosis in the presence of concern of peripheral arterial diseaseArterial Dopplers and SUSY reviewed: Concern of stenosis, however the pulses are faintly palpable. This may be due to edema. Recommend continue monitor. If conditions worsen, possible vascular surgery evaluation. 3. Tib-fib fractureRecommend orthopedic consultation. Dr. Chua is covering for Dr. Burgess 09/18/23 1. Left foot ischemic ulceration with improved surrounding cellulitis. The wound does appear to be clinically stable and improving.Wound care: Silver alginate, 4 x 4, paper tape. Recommend daily dressing changes. Recommend clean with normal saline.Foot x-rays results reviewed-no osseous breakdown/erosions/signs of acute osteomyelitis.Do not get wetElevateRecommend every 2 turns to prevent ulceration.Okay to weight-bear as toleratedAntibiotics as per internal medicine/infectious disease recommendation 2. Lipodermatosclerosis in the presence of concern of peripheral arterial diseaseArterial Dopplers and SUSY reviewed: Concern of stenosis, however the pulses are faintly palpable. This may be due to edema. Recommend continue monitor. If conditions worsen, possible vascular surgery evaluation. 3. Fracture of first metatarsal bone appears to be secondary to the osteogenic imperfectaI have ordered a postop shoe.-Elevate-I recommend conservative therapy. 4. Tib-fib fractureRecommend orthopedic consultation. I recommend continue local wound care and antibiotic therapy. Home health orders placed. 09/19/23 1. Left foot ischemic ulceration with improved surrounding cellulitis. The wound does appear to be clinically stable and improving.Wound care: Silver alginate, 4 x 4, paper tape. Recommend daily dressing changes. Recommend clean with normal saline.Foot x-rays results reviewed-no osseous breakdown/erosions/signs of acute osteomyelitis.Do not get wetElevateRecommend every 2 turns to prevent ulceration.Okay to weight-bear as toleratedAntibiotics as per internal medicine/infectious disease recommendation 2. Lipodermatosclerosis in the presence of concern of peripheral arterial diseaseArterial Dopplers and SUSY reviewed: Concern of stenosis, however the pulses are faintly palpable. This may be due to edema. Recommend continue monitor. If conditions worsen, possible vascular surgery evaluation. 3. Fracture of first metatarsal bone appears to be secondary to the osteogenic imperfectaPending postop shoe.-Elevate-I recommend conservative therapy. 4. Tib-fib fractureOrthopedic following I have ordered Prevalon offloading boot. I recommend continue local wound care and antibiotic therapy. Home health orders placed on 09/18/23. Patient is cleared from the for ankle standpoint for discharge with medically stable. Upon discharge, the patient is to follow-up within 1 week of discharge. The patient is to call [phone] to establish a follow-up appointment. Discussed the risk of no call and no-show which could include but not limited to: Nonhealing wound, spread infection, limb loss. The patient understands. 09/20/23 1. Left foot ischemic ulceration with improved surrounding cellulitis. The wound does appear to be clinically stable and improving.Wound care: Silver alginate, 4 x 4, paper tape. Recommend daily dressing changes. Recommend clean with normal saline.Foot x-rays results reviewed-no osseous breakdown/erosions/signs of acute osteomyelitis.Do not get wetElevateRecommend every 2 turns to prevent ulceration.Okay to weight-bear as toleratedAntibiotics as per internal medicine/infectious disease recommendation 2. Lipodermatosclerosis in the presence of concern of peripheral arterial diseaseArterial Dopplers and SUSY reviewed: Concern of stenosis, however the pulses are faintly palpable. This may be due to edema. Recommend continue monitor. If conditions worsen, possible vascular surgery evaluation. 3. Fracture of first metatarsal bone appears to be secondary to the osteogenic imperfectaPending postop shoe.-Elevate-I recommend conservative therapy. 4. Tib-fib fractureOrthopedic following I have ordered Prevalon offloading boot. I recommend continue local wound care and antibiotic therapy. Home health orders placed on 09/18/23. Patient is cleared from the for ankle standpoint for discharge with medically stable. Upon discharge, the patient is to follow-up within 1 week of discharge. The patient is to call [phone] to establish a follow-up appointment. Discussed the risk of no call and no-show which could include but not limited to: Nonhealing wound, spread infection, limb loss. The patient understands. Consultants: burn/wound, podiatry at 1219 RPT #: [id number] OF REPORT PRProgress [id number]:18:00L.[id number] able for patient ptqjXLHQVCYUGEHVSX7908-76-62M04:20:17 [facility] 2023-09-19 23:11:00 [id number] TS9JBeGLpO9lmKlDgjCx0wKA3lP3278-13-84N43:11:00 [facility] ([facility])Wound Care Progress NoteREPORT#:[id number] REPORT STATUS: SignedREPORT INITIALIZATION DATE:09/19/23 TIME:2310 PATIENT: FLORY SHAFER UNIT #: [id number]#: [id number] [address] [birth year] AGE: 63 SEX: F ATTEND: Peggy Hutton [facility] AUTHOR: Ángel Dawn MDREPT SERVICE DT/TIME: 09/19/232310* ALL edits or amendments must be made on the electronic/computer document * SubjectiveChief complaint:Wound CareHPI:Ms. Shafer was seen by orthopedicsUnable to obtain: uncooperative Objective GeneralVS:Last Documented: Result Date Time Pulse Ox 96 09/18 1900 B/P 105/57 09/18 1900 B/P Mean 73.2 09/18 1900 O2 Delivery Room air 09/18 1900 Temp 98.6 09/18 1900 Pulse 94 09/18 1900 Resp 18 09/18 1900 O2 Flow Rate 2 09/14 0400 PATIENT WEIGHT: Weight (lb): Weight (oz): Weight (kg): 63.636 Medications:Active Meds + DC'd Last 24 HrsLactated Ringer's (LACTATED RINGERS) 1,000 ML .[id number] IV Famotidine (PEPCID) 20 MG Q12HR PO Cefazolin Sodium (KEFZOL) 1 GM Q8HR IV Sterile Water (WATER FOR INJECTION) 10 MLDocusate Sodium (COLACE) 100 MG BID PRN PRN PO Hydralazine HCl (APRESOLINE) 10 MG Q6H PRN PRN IV Hydrocodone Bitart/Acetaminophen (NORCO 7.5/325) 1 TAB Q6H PRN PRN PO Ondansetron HCl (ZOFRAN ODT) 4 MG Q4H PRN PRN PO Tramadol HCl (ULTRAM) 50 MG Q6H PRN PRN PO Dietitian Nutrition assessmentThe data set between the solid lines has been imported from the dietitian's assessment. BMI Calculated: 24.9Nutrition related diagnosis: Nutrition diagnosis details: Nutrition problem: Nutrition etiology: Nutrition signs and symptoms: Nutrition prescription: Dietitian name: Assessment completed: Physical ExamGeneral appearance: chronically ill appearingHead/eyes: atraumaticENT: moist mucosal membranesCardiovascular: no rubAbdomen: non-tenderExtremities: no edemaNeuro/TECHNOLOGY AUDITOR: alertSkin: lesions (multiple abrasions), rash (cellulitis of left foot) Wound AssessmentWound Assessment 1: Type/cause: arterial Wound location: foot (left) Tissue layers: with muscle necrosis Site condition: erythema, eschar, necrotic tissue Diagnosis, Assessment PlanProblem List/A P: 1. Pressure injury of deep tissue of sacral region antifungal barrier cream once per RN shift. 2. Pressure-induced deep tissue damage of unspecified buttock antifungal barrier cream once per RN shift. 3. Multiple abrasions stable; cont to leave open to air 4. Gangrene of left foot defer mgmt to Dr. Burgess 5. Cellulitis of left leg improving; defer mgmt to ID, primary 6. Above knee amputation of left lower extremity recommend staple removal under general anethesia as pt adamantly refused bedside removal.. Consultants: burn/wound, podiatry at 2313 RPT #: [id number] OF REPORT PNProcedure [id number]:11:00L.[id number] able for patient hegbSRHFMXIGNSSLVI4875-50-75S25:13:13 [facility] 2023-09-19 19:18:00 [id number]/FdWwb eB40ewIOs7fZVMY4PpK+7TSlLOW5563-49-94E89:18:00 [facility] ([facility])Hospitalist Progress NoteREPORT#:[id number] REPORT STATUS: SignedREPORT INITIALIZATION DATE:09/19/23 TIME:1917 PATIENT: FLORY SHAFER UNIT #: [id number]#: [id number] [address]: [address] AGE: 63 SEX: F ATTEND: Peggy Hutton MDADM AUTHOR: Peggy Hutton MDREPT SERVICE DT/TIME: 09/19/23 0930* ALL edits or amendments must be made on the electronic/computer document * SubjectiveChief complaint:Still refusing care and lab Objective GeneralVS/I O:Vital Signs: Date Time Temp Pulse Resp B/P B/P Pulse O2 O2 Flow FiO2 Mean Ox Delivery Rate 09/18 1901 98.6 94 18 105/57 73.2 96 Room air 09/18 1633 98.2 84 16 100/54 69 97 Room air 09/18 1124 98.2 80 16 105/69 81 99 Room air 09/18 0713 98.1 72 16 103/59 73.5 97 Room air 09/18 0304 98.1 83 17 96/51 65.8 93 Room air 09/17 2329 99.5 91 16 92/62 0.0 91 Room air 09/17 1920 97.3 78 16 108/72 83.9 96 24 hour I O ending at 0700: 09/18 0700 09/17 1900 Intake Total 100 Output Total 1700 Balance -1600 Intake, Oral 100 Number Voids 3 Output, Urine 1700 PATIENT WEIGHT: Weight (lb): Weight (oz): Weight (kg): 63.636 Medications:Active Meds + DC'd Last 24 HrsLactated Ringer's (LACTATED RINGERS) 1,000 ML .[id number] IV Famotidine (PEPCID) 20 MG Q12HR PO Cefazolin Sodium (KEFZOL) 1 GM Q8HR IV Sterile Water (WATER FOR INJECTION) 10 MLDocusate Sodium (COLACE) 100 MG BID PRN PRN PO Hydralazine HCl (APRESOLINE) 10 MG Q6H PRN PRN IV Hydrocodone Bitart/Acetaminophen (NORCO 7.5/325) 1 TAB Q6H PRN PRN PO Ondansetron HCl (ZOFRAN ODT) 4 MG Q4H PRN PRN PO Tramadol HCl (ULTRAM) 50 MG Q6H PRN PRN PO Dietitian nutrition assessmentThe data set between the solid lines has been imported from the dietitian's assessment. BMI Calculated: 24.9Nutrition related diagnosis: Nutrition diagnosis details: Nutrition problem: Nutrition etiology: Nutrition signs and symptoms: Nutrition prescription: Dietitian name: Assessment completed: Physical ExamGeneral appearance: alert, awakeHead/Eyes: atraumatic, normocephalicENT: normal dentition, normal ear left, normal ear right, normal nose, normal pharynx, normal sinusNeck: full range of motion, non-tender, normal thyroid, supple/no meningismus, no bruit/NL carotids, no JVD, no masses or swellingCardiovascular: normal capillary refill, regular rate rhythmRespiratory: symmetric expansion, no distressExtremities: no edemaNeuro/TECHNOLOGY AUDITOR: alert, oriented X 3Skin: abnormal color Diagnosis, Assessment PlanConsultants: burn/wound, podiatry Free Text DxA P NotesFree text DxA P notes: 63-year-old female with a history of osteogenesis imperfecta, right AKA who is admitted for: #Left foot cellulitis with gangrene- foot x-ray shows no acute displaced fracture or dislocation identified. Normal marrow density and mild generalized soft tissue swelling.- on abx-ordered WBC, LA, CMP, Mag and Phos. Patient is still refusing lab- obtain MRI to r/o osteo and arterial doppler if patient is agreeable- volunteer services director and wound care provider consulted, appreciate recs. -infectious disease for further evaluation #Right AKA-Chani still present, according to pt states chani been on for 2 years. She has refused the removal of the chani-wound care provider consulted. #H/O Osteogenesis imperfecta- immobility- PT/OT #TibFib Fx--ortho consulted. NWB. DVT prophylaxis: SCDs.GI prophylaxis: pepcid Code Status: Full code.DC in a.m once WC is set at 2150 RPT #: [id number] OF REPORT PRProgress wxwn8945-01-16C91:18:00L.[id number] able for patient srpqZZGUWUWTVIPTRT2163-23-67O92:50:51 [facility] 2023-09-19 12:18:00 [id number] 9BaqWTDSwh25VPxGq7mC0TdhdyNjg JMxXxIe8mVpVZRMOs/s7ZBLWR8R7821-12-36R09:18:00 [facility] ([facility])Podiatry Progress NoteREPORT#:[id number] REPORT STATUS: SignedREPORT INITIALIZATION DATE:09/19/23 TIME:1217 PATIENT: FLORY SHAFER UNIT #: [id number]#: [id number] [address] [birth year] AGE: 63 SEX: F ATTEND: Peggy Hutton MDADM AUTHOR: Liberty Burgess DPMREPT SERVICE DT/TIME: 09/19/23 1218* ALL edits or amendments must be made on the electronic/computer document * SubjectiveHPI:Seen at bedside. Dressings are clean, dry, intact. Reports no pain. No further complaints at this time Review of Systems Free Text ROS NotesFree Text ROS Notes:14 point review of system was conducted and negative except discussed above Objective GeneralVS:Last Documented: Result Date Time Pulse Ox 99 09/18 1124 B/P 105/69 09/18 1124 B/P Mean 81 09/18 1124 O2 Delivery Room air 09/18 1124 Temp 98.2 09/18 1124 Pulse 80 09/18 1124 Resp 16 09/18 1124 O2 Flow Rate 2 09/14 0400 PATIENT WEIGHT: Weight (lb): Weight (oz): Weight (kg): 63.636 Medications:Active Meds + DC'd Last 24 HrsLactated Ringer's (LACTATED RINGERS) 1,000 ML .[id number] IV Famotidine (PEPCID) 20 MG Q12HR PO Cefazolin Sodium (KEFZOL) 1 GM Q8HR IV Sterile Water (WATER FOR INJECTION) 10 MLDocusate Sodium (COLACE) 100 MG BID PRN PRN PO Hydralazine HCl (APRESOLINE) 10 MG Q6H PRN PRN IV Hydrocodone Bitart/Acetaminophen (NORCO 7.5/325) 1 TAB Q6H PRN PRN PO Ondansetron HCl (ZOFRAN ODT) 4 MG Q4H PRN PRN PO Tramadol HCl (ULTRAM) 50 MG Q6H PRN PRN PO I O:24 hour I O ending at 0700: 09/18 0700 09/17 1900 Intake Total 100 Output Total 1700 Balance -1600 Intake, Oral 100 Number Voids 3 Output, Urine 1700 Dietitian nutrition assessmentThe data set between the solid lines has been imported from the dietitian's assessment. BMI Calculated: 24.9Nutrition related diagnosis: Nutrition diagnosis details: Nutrition problem: Nutrition etiology: Nutrition signs and symptoms: Nutrition prescription: Dietitian name: Assessment completed: Physical ExamGeneral appearance: alert, awake, orientedWound/incision: Location:Left medial foot by the first metatarsal: There is a full-thicknessulceration that measures 3 x 2 x 0.2 cm. The base is 100%. There is nomaggots noted in the wound base. The wound does notprobe to bone. There is surrounding erythema and warmth. There is nomalodor. There is no lymphatic streaking. There is no crepitusHead/Eyes: clear cornea, EOMI, normocephalicENT: normal ear left, normal ear rightNeck: full range of motion, non-tender, no bruit/NL carotidsCardiovascular: normal capillary refillRespiratory: clear to auscultation, no distress, no tendernessAbdomen: soft, no guarding, no reboundGenitourinary: not indicatedExtremities:Left moves all, Left no evidence of DVTLE vascular pulse assess:Nonpalpable L popliteal, Nonpalpable L posterior tibialis, Nonpalpable L dorsalis pedisCapillary refill: Capillary refill (in seconds): > 5 seconds Left footFoot: swelling, contracture flexion at the knee, left right bkaNeuro/TECHNOLOGY AUDITOR: alert, oriented X 3Lymphatics: axilla normal, inguinal normal, no lymphadenopathyPsychiatry: no hallucinations, normal affect, normal judgment/insight, normal mood Diagnosis, Assessment PlanFree Text A P:63-year-old female with a history of osteogenesis imperfecta presents to the hospital with left first metatarsal ischemic ulceration and surrounding cellulitis.The patient is wheelchair-bound. 1. Left foot ischemic ulceration with surrounding cellulitis. There is a concern of underlying osteomyelitis.Wound care: Silver alginate, 4 x 4, paper tape. Recommend daily dressing changes. Recommend clean with normal saline.X-rays orderedDo not get wetElevateRecommend every 2 turns to prevent ulceration.Okay to weight-bear as toleratedAntibiotics as per internal medicine/infectious disease recommendation 2. Lipodermatosclerosis in the presence of concern of peripheral arterial diseaseArterial Dopplers and SUSY reviewed: Concern of stenosis, however the pulses are faintly palpable. This may be due to edema. Recommend continue monitor. If conditions worsen, possible vascular surgery evaluation. I will determine further plans after imaging studies result. Interim, recommendcontinue local wound care and antibiotic therapy. Thank you for the consultation 09/16/23 1. Left foot ischemic ulceration with surrounding cellulitis. There is a concern of underlying osteomyelitis.Wound care: Silver alginate, 4 x 4, paper tape. Recommend daily dressing changes. Recommend clean with normal saline.Foot x-rays pendingDo not get wetElevateRecommend every 2 turns to prevent ulceration.Okay to weight-bear as toleratedAntibiotics as per internal medicine/infectious disease recommendation 2. Lipodermatosclerosis in the presence of concern of peripheral arterial diseaseArterial Dopplers and SUSY reviewed: Concern of stenosis, however the pulses are faintly palpable. This may be due to edema. Recommend continue monitor. If conditions worsen, possible vascular surgery evaluation. 3. Tib-fib fractureRecommend orthopedic consultation. I will determine further plans after imaging studies result. Interim, recommendcontinue local wound care and antibiotic therapy. . Left foot ischemic ulceration with surrounding cellulitis. There is a concern of underlying osteomyelitis.Wound care: Silver alginate, 4 x 4, paper tape. Recommend daily dressing changes. Recommend clean with normal saline.Foot x-rays results reviewed- frature on metatarsal, appears stableDo not get wetElevateRecommend every 2 turns to prevent ulceration.Okay to weight-bear as toleratedAntibiotics as per internal medicine/infectious disease recommendation 2. Lipodermatosclerosis in the presence of concern of peripheral arterial diseaseArterial Dopplers and SUSY reviewed: Concern of stenosis, however the pulses are faintly palpable. This may be due to edema. Recommend continue monitor. If conditions worsen, possible vascular surgery evaluation. 3. Tib-fib fractureRecommend orthopedic consultation. Dr. Chua is covering for Dr. Burgess 09/18/23 1. Left foot ischemic ulceration with improved surrounding cellulitis. The wound does appear to be clinically stable and improving.Wound care: Silver alginate, 4 x 4, paper tape. Recommend daily dressing changes. Recommend clean with normal saline.Foot x-rays results reviewed-no osseous breakdown/erosions/signs of acute osteomyelitis.Do not get wetElevateRecommend every 2 turns to prevent ulceration.Okay to weight-bear as toleratedAntibiotics as per internal medicine/infectious disease recommendation 2. Lipodermatosclerosis in the presence of concern of peripheral arterial diseaseArterial Dopplers and SUSY reviewed: Concern of stenosis, however the pulses are faintly palpable. This may be due to edema. Recommend continue monitor. If conditions worsen, possible vascular surgery evaluation. 3. Fracture of first metatarsal bone appears to be secondary to the osteogenic imperfectaI have ordered a postop shoe.-Elevate-I recommend conservative therapy. 4. Tib-fib fractureRecommend orthopedic consultation. I recommend continue local wound care and antibiotic therapy. Home health orders placed. 09/19/23 1. Left foot ischemic ulceration with improved surrounding cellulitis. The wound does appear to be clinically stable and improving.Wound care: Silver alginate, 4 x 4, paper tape. Recommend daily dressing changes. Recommend clean with normal saline.Foot x-rays results reviewed-no osseous breakdown/erosions/signs of acute osteomyelitis.Do not get wetElevateRecommend every 2 turns to prevent ulceration.Okay to weight-bear as toleratedAntibiotics as per internal medicine/infectious disease recommendation 2. Lipodermatosclerosis in the presence of concern of peripheral arterial diseaseArterial Dopplers and SUSY reviewed: Concern of stenosis, however the pulses are faintly palpable. This may be due to edema. Recommend continue monitor. If conditions worsen, possible vascular surgery evaluation. 3. Fracture of first metatarsal bone appears to be secondary to the osteogenic imperfectaPending postop shoe.-Elevate-I recommend conservative therapy. 4. Tib-fib fractureOrthopedic following I have ordered Prevalon offloading boot. I recommend continue local wound care and antibiotic therapy. Home health orders placed on 09/18/23. Patient is cleared from the for ankle standpoint for discharge with medically stable. Upon discharge, the patient is to follow-up within 1 week of discharge. The patient is to call [phone] to establish a follow-up appointment. Discussed the risk of no call and no-show which could include but not limited to: Nonhealing wound, spread infection, limb loss. The patient understands.Consultants: burn/wound, podiatry at 1220 RPT #: [id number] OF REPORT PRProgress ogkr0054-36-27I29:18:00L.[id number] able for patient cxtaOEHQNIJVLYDUWE1506-19-51M14:20:31 [facility] 2023-09-19 10:29:00 [id number] ZdqciEHxOcJGO+iCe4cb0ohf1jSlU Ffwd8H+3G2spnTsvuiSY/3/YkE28727-09-62X91:29:00 [facility] ([facility])Orthopaedic Consult NoteREPORT#:[id number] REPORT STATUS: SignedREPORT INITIALIZATION DATE:09/19/23 TIME:1029 PATIENT: FLORY SHAFER UNIT #: [id number]#: [id number] ROOM/BED: M631-6BAK: 61 AGE: 63 SEX: F ATTEND: Peggy Hutton [facility] AUTHOR: Vega Soto III MDREPT SERVICE DT/TIME: 09/19/23 1029* ALL edits or amendments must be made on the electronic/computer document * History - Adult longitudinalAdditional medical history:Osteogenesis imperfectaAdditional family history:Reviewed, NCSmoking status for patients 13 years old or older: Unknown,if ever smokedAllergies:Coded Allergies:No Known Allergies (09/15/23) Diagnosis, Assessment PlanFree Text A P: [facility] ER/Inpatient Consult Note Consulting physician: Dr. Hutton Reason:Left leg pain CHIEF COMPLAINTLeft leg pain HISTORY OF PRESENT ILLNESSThe patient is a 63-year-old female with left leg pain. She has a history of osteogenesis imperfecta. She sustained a midshaft tib-fib fracture 3 months agoafter a fall. She has been treated in a cast. She presented to get the cast removed in addition to multiple other medical issues. She has some foot wounds weaning treated with wound care. She reports pain is controlled. She reports at baseline she does not ambulate due to the right xptxf-xdl-uiua amputation. She was wheelchair bound at baseline. PAST MEDICAL HISTORYOsteogenesis imperfecta PAST SURGICAL HISTORYRight yqfeq-gcn-qmad amputation PHYSICAL EXAMINATIONSThe patient is AAOx3, NADRespirations unlabored, hearing intact to the spoken word Left Lower Extremity: Skin intact at leg with scaling about the leg, mild swelling,. Capillary refill less than 2 seconds Motor: Deferred Sensation:Diminished to light touch in saphenous/sural/superficial peroneal/deep peroneal/tibial distribution bilaterally Imaging:Radiographs of the left tibia are reviewed and interpreted including imaging showing callus of the tibia with reasonable alignment on orthogonal radiographs,subacute fracture ASSESSMENT/PLANThe patient is a 63-year-old female with osteogenesis imperfecta with left tip of the fracture, subacute, healing. History of right miuqg-uum-rbhi amputation. Discussed treatment with the patient in detail At baseline, she was nonweightbearing. Okay to transition into a boot. As she was nonweightbearing at baseline, we are not concerned about walking. If she wants to start walking, we will order a CT scan to evaluate healing before we clear her for weight-bearing. Continue nonweightbearing left lower extremity PT/OTP.o. pain medication needed Care per hospitalist She agrees with the plan Follow up as outpatient at 1030 [facility] #: [id number] OF REPORT GLVuxrqqxotbmz2183-33-08L26:29:00L.[id number] 088AVAvailable for patient xedqHIDPAMTCPJAZZB2682-84-39V24:30:37 [facility] 2023-09-19 09:11:00 [id number] xYT0II//AGCxekJFxM+XDW4gEaa+L /1doPY4sHvFmlQ5Zfdf43JN0BaG4381-49-11N38:11:00 [facility] ([facility])Infectious Dis. Progress NoteREPORT#:[id number] REPORT STATUS: SignedREPORT INITIALIZATION DATE:09/19/23 TIME:910 PATIENT: FLORY SHAFER UNIT #: [id number]#: [id number] [address] [birth year] AGE: 63 SEX: F ATTEND: Peggy Hutton [facility] AUTHOR: Damion Julian MDREPT SERVICE DT/TIME: 09/19/23 0911* ALL edits or amendments must be made on the electronic/computer document * SubjectiveChief complaint:Gangrene.HPI:Pt is on cefazolin. Pt has been declining labs and wound care. Review of SystemsConstitutional:other (No fever reported). Objective Physical ExamGeneral appearance: chronically ill appearing, awakeHead/Eyes: atraumatic, clear cornea, normal conjunctiva/sclera, normal eyelids/periorb, normocephalicNeck: full range of motion, non-tender, supple/no meningismusCardiovascular: regular rate rhythmRespiratory: symmetric expansion, no distressAbdomen: non-tender, soft, no guardingExtremities: normal temperatureMusculoskeletal: Left toe with ischemic wound Right leg stumpNeuro/TECHNOLOGY AUDITOR: alert, oriented X 3, normal speechSkin: normal turgor Diagnosis, Assessment PlanFree Text A P:No new labs Imaging:X-ray left foot reviewed 09/14X-ray left tibia reviewed 09/14 Assessment:1. Left foot infected wound with ischemic changes, r/o osteomyelitis.2. PVD.3. Recent left tib-fib fracture. Plan:1. Cefazolin (day 5).2. If pt continues to refuse care, can switch to cephalexin to complete 10 days,just to treat the acute infection.3. Pt is high risk for limb loss due to her refusal of medical care.4. Antibiotics alone will not cure her foot. This was explained to the pt. 5. Podiatry following.6. Wound care. at 1027 RPT #: [id number] OF REPORT PRProgress kkgw7977-82-50Y55:11:00L.[id number] able for patient fkieQJRVYQPJLDAZDK8078-57-83K10:27:37 [facility] 2023-09-18 19:45:00 [id number] JO7f0e3CnX5HvfdyjICRGIivafY0b /0pMt7UrMO/bhVWymy8ynKkQlAW7988-67-31S94:45:00 [facility] ([facility])Wound Care Progress NoteREPORT#:[id number] REPORT STATUS: SignedREPORT INITIALIZATION DATE:09/18/23 TIME:1944 PATIENT: FLORY SHAFER UNIT #: [id number]#: [id number] [address] [birth year] AGE: 63 SEX: F ATTEND: Peggy Hutton [facility] AUTHOR: Ángel Dawn MDREPT SERVICE DT/TIME: 09/18/231944* ALL edits or amendments must be made on the electronic/computer document * SubjectiveChief complaint:Wound CareHPI:slightly agitatedUnable to obtain: combative Objective GeneralVS:Last Documented: Result Date Time Pulse Ox 96 09/18 1919 B/P 108/72 09/18 1919 B/P Mean 83.9 09/18 1919 Temp 97.3 09/18 1919 Pulse 78 09/18 1919 Resp 16 09/18 1919 O2 Delivery Room air 09/16 2335 O2 Flow Rate 2 09/14 0400 PATIENT WEIGHT: Weight (lb): Weight (oz): Weight (kg): 63.636 Medications:Active Meds + DC'd Last 24 HrsLactated Ringer's (LACTATED RINGERS) 1,000 ML .E35W16X IV Famotidine (PEPCID) 20 MG Q12HR PO Cefazolin Sodium (KEFZOL) 1 GM Q8HR IV Sterile Water (WATER FOR INJECTION) 10 MLLactated Ringer's (LACTATED RINGERS) 500 ML .Q6H40M IV (DC) Docusate Sodium (COLACE) 100 MG BID PRN PRN PO Hydralazine HCl (APRESOLINE) 10 MG Q6H PRN PRN IV Hydrocodone Bitart/Acetaminophen (NORCO 7.5/325) 1 TAB Q6H PRN PRN PO Ondansetron HCl (ZOFRAN ODT) 4 MG Q4H PRN PRN PO Tramadol HCl (ULTRAM) 50 MG Q6H PRN PRN PO Dietitian Nutrition assessmentThe data set between the solid lines has been imported from the dietitian's assessment. BMI Calculated: 24.9Nutrition related diagnosis: Nutrition diagnosis details: Nutrition problem: Nutrition etiology: Nutrition signs and symptoms: Nutrition prescription: Dietitian name: Assessment completed: Physical ExamGeneral appearance: chronically ill appearingHead/eyes: atraumaticENT: moist mucosal membranesCardiovascular: no rubAbdomen: non-tenderExtremities: no edemaNeuro/TECHNOLOGY AUDITOR: alertSkin: lesions (multiple abrasions), rash (cellulitis of left foot) Wound AssessmentWound Assessment 1: Type/cause: arterial Wound location: foot (left) Tissue layers: with muscle necrosis Site condition: erythema, eschar, necrotic tissue Diagnosis, Assessment PlanProblem List/A P: 1. Pressure injury of deep tissue of sacral region antifungal barrier cream once per RN shift. 2. Pressure-induced deep tissue damage of unspecified buttock antifungal barrier cream once per RN shift. 3. Multiple abrasions stable; cont to leave open to air 4. Gangrene of left foot defer mgmt to Dr. Burgess 5. Cellulitis of left leg improving; defer mgmt to ID, primary 6. Above knee amputation of left lower extremity recommend staple removal under anesthesia. Pt violently refused my offer to try to remove chani. Consultants: burn/wound, podiatry at 1946 RPT #: [id number] OF REPORT PNProcedure nari4655-31-31O97:45:00L.[id number] able for patient spcsHZHNBXMJQNYLUD9423-18-31U86:46:42 [facility] 2023-09-18 13:22:00 [id number] Q2WU3T4xngISsvvLr8qchqjg0Q9w8 3z+vDtG8BHD8Bkccrcrxjt9h1WW9387-28-83E60:22:00 [facility] ([facility])Hospitalist Progress NoteREPORT#:[id number] REPORT STATUS: SignedREPORT INITIALIZATION DATE:09/18/23 TIME:1322 PATIENT: FLORY SHAFER UNIT #: [id number]#: [id number] [address] AGE: 63 SEX: F ATTEND: Peggy Hutton [facility] AUTHOR: Peggy Hutton MDREPT SERVICE DT/TIME: 09/18/23 1322* ALL edits or amendments must be made on the electronic/computer document * SubjectiveChief complaint:Still refusing care Objective GeneralVS/I O:Vital Signs: Date Time Temp Pulse Resp B/P B/P Pulse O2 O2 Flow FiO2 Mean Ox Delivery Rate 09/17 1128 98.6 85 20 108/69 81.8 94 09/17 0807 98.6 80 20 110/71 84.1 91 09/17 0550 97.9 74 18 127/73 91.0 95 09/16 2335 99.5 91 19 93/51 0.0 94 Room air 09/16 1915 97.5 89 18 149/76 100.2 97 Room air 09/16 1656 98.1 83 16 135/79 97.6 98 Nasal cannula 24 hour I O ending at 0700: 09/17 0700 09/16 1900 Intake Total 100 Output Total Balance 100 Intake, Oral 100 PATIENT WEIGHT: Weight (lb): Weight (oz): Weight (kg): 63.636 Medications:Active Meds + DC'd Last 24 HrsLactated Ringer's (LACTATED RINGERS) 1,000 ML .C27C36Z IV Famotidine (PEPCID) 20 MG Q12HR PO Miscellaneous Information (VANCOMYCIN PHARMACY TO DOSE) 1 EACH ASDIR IV (DC) Cefazolin Sodium (KEFZOL) 1 GM Q8HR IV Sterile Water (WATER FOR INJECTION) 10 MLLactated Ringer's (LACTATED RINGERS) 500 ML .Q6H40M IV (DC) Docusate Sodium (COLACE) 100 MG BID PRN PRN PO Hydralazine HCl (APRESOLINE) 10 MG Q6H PRN PRN IV Hydrocodone Bitart/Acetaminophen (NORCO 7.5/325) 1 TAB Q6H PRN PRN PO Ondansetron HCl (ZOFRAN ODT) 4 MG Q4H PRN PRN PO Tramadol HCl (ULTRAM) 50 MG Q6H PRN PRN PO Dietitian nutrition assessmentThe data set between the solid lines has been imported from the dietitian's assessment. BMI Calculated: 24.9Nutrition related diagnosis: Nutrition diagnosis details: Nutrition problem: Nutrition etiology: Nutrition signs and symptoms: Nutrition prescription: Dietitian name: Assessment completed: Physical ExamGeneral appearance: alert, awakeHead/Eyes: atraumatic, normocephalicENT: normal dentition, normal ear left, normal ear right, normal nose, normal pharynx, normal sinusNeck: full range of motion, non-tender, normal thyroid, supple/no meningismus, no bruit/NL carotids, no JVD, no masses or swellingCardiovascular: normal capillary refill, regular rate rhythmRespiratory: symmetric expansion, no distressExtremities: no edemaNeuro/TECHNOLOGY AUDITOR: alert, oriented X 3Skin: abnormal color Diagnosis, Assessment PlanConsultants: burn/wound, podiatry Free Text DxA P NotesFree text DxA P notes: 63-year-old female with a history of osteogenesis imperfecta, right AKA who is admitted for: #Left foot cellulitis with gangrene- foot x-ray shows no acute displaced fracture or dislocation identified. Normal marrow density and mild generalized soft tissue swelling.- on abx-ordered WBC, LA, CMP, Mag and Phos. Patient is still refusing lab- obtain MRI to r/o osteo and arterial doppler if patient is agreeable- volunteer services director and wound care provider consulted, appreciate recs. -infectious disease for further evaluation #Right AKA-Chani still present, according to pt states chani been on for 2 years. She has refused the removal of the chani-wound care provider consulted. #H/O Osteogenesis imperfecta- immobility- PT/OT #TibFib Fx--ortho consulted. DVT prophylaxis: SCDs.GI prophylaxis: pepcid Code Status: Full code.DC in a.m ortho eval at 1326 [facility] #: [id number] OF REPORT PRProgress kvzv9055-91-90E74:22:00L.[id number] able for patient npuyCBZJNKJVKMIWZT2675-04-83J61:26:46 [facility] 2023-09-18 12:23:00 [id number] 6e29V4D2ocV0mHDc49oMErIRZ7GNO yODKC1ZIHSImQEftNRmEyjOOZir3486-12-79D01:23:00 [facility]Pod[facility] Progress NoteREPORT#:[id number] REPORT STATUS: SignedREPORT INITIALIZATION DATE:09/18/23 TIME:1223 PATIENT: FLORY SHAFER UNIT #: [id number]#: [id number] [address] [birth year] AGE: 63 SEX: F ATTEND: Peggy Hutton MDADM AUTHOR: Liberty Burgess DPMREPT SERVICE DT/TIME: 09/18/23 1223* ALL edits or amendments must be made on the electronic/computer document * SubjectiveHPI:Seen at bedside. Dressings are clean, dry, intact. Reports no pain. No further complaints at this time Review of Systems Free Text ROS NotesFree Text ROS Notes:14 point review of system was conducted and negative except discussed above Objective GeneralVS:Last Documented: Result Date Time Pulse Ox 94 09/17 1128 B/P 108/69 09/17 1128 B/P Mean 81.8 09/17 1128 Temp 98.6 09/17 1128 Pulse 85 09/17 1128 Resp 20 09/17 1128 O2 Delivery Room air 09/16 2335 O2 Flow Rate 2 09/14 0400 PATIENT WEIGHT: Weight (lb): Weight (oz): Weight (kg): 63.636 Medications:Active Meds + DC'd Last 24 HrsLactated Ringer's (LACTATED RINGERS) 1,000 ML .G52A27A IV Famotidine (PEPCID) 20 MG Q12HR PO Miscellaneous Information (VANCOMYCIN PHARMACY TO DOSE) 1 EACH ASDIR IV (DC) Cefazolin Sodium (KEFZOL) 1 GM Q8HR IV Sterile Water (WATER FOR INJECTION) 10 MLLactated Ringer's (LACTATED RINGERS) 500 ML .Q6H40M IV (DC) Docusate Sodium (COLACE) 100 MG BID PRN PRN PO Hydralazine HCl (APRESOLINE) 10 MG Q6H PRN PRN IV Hydrocodone Bitart/Acetaminophen (NORCO 7.5/325) 1 TAB Q6H PRN PRN PO Ondansetron HCl (ZOFRAN ODT) 4 MG Q4H PRN PRN PO Tramadol HCl (ULTRAM) 50 MG Q6H PRN PRN PO I O:24 hour I O ending at 0700: 03/12 0700 03/ 1900 Intake Total 100 Output Total Balance 100 Intake, Oral 100 Dietitian nutrition assessmentThe data set between the solid lines has been imported from the dietitian's assessment. BMI Calculated: 24.9Nutrition related diagnosis: Nutrition diagnosis details: Nutrition problem: Nutrition etiology: Nutrition signs and symptoms: Nutrition prescription: Dietitian name: Assessment completed: Physical ExamGeneral appearance: alert, awake, orientedWound/incision: Location:Left medial foot by the first metatarsal: There is a full-thicknessulceration that measures 3 x 2 x 0.2 cm. The base is 100%. There is no maggotsnoted in the wound base. The wound does notprobe to bone. There is surrounding erythema and warmth. There is nomalodor. There is no lymphatic streaking. There is no crepitusHead/Eyes: clear cornea, EOMI, normocephalicENT: normal ear left, normal ear rightNeck: full range of motion, non-tender, no bruit/NL carotidsCardiovascular: normal capillary refillRespiratory: clear to auscultation, no distress, no tendernessAbdomen: soft, no guarding, no reboundGenitourinary: not indicatedExtremities:Left moves all, Left no evidence of DVTLE vascular pulse assess:Nonpalpable L popliteal, Nonpalpable L posterior tibialis, Nonpalpable L dorsalis pedisCapillary refill: Capillary refill (in seconds): > 5 seconds Left footFoot: swelling, contracture flexion at the knee, left right bkaNeuro/TECHNOLOGY AUDITOR: alert, oriented X 3Lymphatics: axilla normal, inguinal normal, no lymphadenopathyPsychiatry: no hallucinations, normal affect, normal judgment/insight, normal mood Diagnosis, Assessment PlanFree Text A P:63-year-old female with a history of osteogenesis imperfecta presents to the hospital with left first metatarsal ischemic ulceration and surrounding cellulitis.The patient is wheelchair-bound. 1. Left foot ischemic ulceration with surrounding cellulitis. There is a concern of underlying osteomyelitis.Wound care: Silver alginate, 4 x 4, paper tape. Recommend daily dressing changes. Recommend clean with normal saline.X-rays orderedDo not get wetElevateRecommend every 2 turns to prevent ulceration.Okay to weight-bear as toleratedAntibiotics as per internal medicine/infectious disease recommendation 2. Lipodermatosclerosis in the presence of concern of peripheral arterial diseaseArterial Dopplers and SUSY reviewed: Concern of stenosis, however the pulses are faintly palpable. This may be due to edema. Recommend continue monitor. If conditions worsen, possible vascular surgery evaluation. I will determine further plans after imaging studies result. Interim, recommendcontinue local wound care and antibiotic therapy. Thank you for the consultation 09/16/23 1. Left foot ischemic ulceration with surrounding cellulitis. There is a concern of underlying osteomyelitis.Wound care: Silver alginate, 4 x 4, paper tape. Recommend daily dressing changes. Recommend clean with normal saline.Foot x-rays pendingDo not get wetElevateRecommend every 2 turns to prevent ulceration.Okay to weight-bear as toleratedAntibiotics as per internal medicine/infectious disease recommendation 2. Lipodermatosclerosis in the presence of concern of peripheral arterial diseaseArterial Dopplers and SUSY reviewed: Concern of stenosis, however the pulses are faintly palpable. This may be due to edema. Recommend continue monitor. If conditions worsen, possible vascular surgery evaluation. 3. Tib-fib fractureRecommend orthopedic consultation. I will determine further plans after imaging studies result. Interim, recommendcontinue local wound care and antibiotic therapy. . Left foot ischemic ulceration with surrounding cellulitis. There is a concern of underlying osteomyelitis.Wound care: Silver alginate, 4 x 4, paper tape. Recommend daily dressing changes. Recommend clean with normal saline.Foot x-rays results reviewed- frature on metatarsal, appears stableDo not get wetElevateRecommend every 2 turns to prevent ulceration.Okay to weight-bear as toleratedAntibiotics as per internal medicine/infectious disease recommendation 2. Lipodermatosclerosis in the presence of concern of peripheral arterial diseaseArterial Dopplers and SUSY reviewed: Concern of stenosis, however the pulses are faintly palpable. This may be due to edema. Recommend continue monitor. If conditions worsen, possible vascular surgery evaluation. 3. Tib-fib fractureRecommend orthopedic consultation. Dr. Chua is covering for Dr. Burgess 09/18/23 1. Left foot ischemic ulceration with improved surrounding cellulitis. The wound does appear to be clinically stable and improving.Wound care: Silver alginate, 4 x 4, paper tape. Recommend daily dressing changes. Recommend clean with normal saline.Foot x-rays results reviewed-no osseous breakdown/erosions/signs of acute osteomyelitis.Do not get wetElevateRecommend every 2 turns to prevent ulceration.Okay to weight-bear as toleratedAntibiotics as per internal medicine/infectious disease recommendation 2. Lipodermatosclerosis in the presence of concern of peripheral arterial diseaseArterial Dopplers and SUSY reviewed: Concern of stenosis, however the pulses are faintly palpable. This may be due to edema. Recommend continue monitor. If conditions worsen, possible vascular surgery evaluation. 3. Fracture of first metatarsal bone appears to be secondary to the osteogenic imperfectaI have ordered a postop shoe.-Elevate-I recommend conservative therapy. 4. Tib-fib fractureRecommend orthopedic consultation. I recommend continue local wound care and antibiotic therapy. Home health orders placed. Consultants: burn/wound, podiatry at 1225 RPT #: [id number] OF REPORT PRProgress [id number]:23:00L.[id number] able for patient jvjvWWGRSHBAXQDYXY2161-44-87K29:25:54 [facility] 2023-09-18 09:56:00 [id number] FKFzeOG5srZ/a2yBhYaOlWWfWpQRc iBU3XalmaM5CmH2vGa9NoCLPAB64068-50-42X30:56:00 [facility] ([facility])Infectious Dis. Progress NoteREPORT#:[id number] REPORT STATUS: SignedREPORT INITIALIZATION DATE:09/18/23 TIME:955 PATIENT: FLORY SHAFER UNIT #: [id number]#: [id number] [address] AGE: 63 SEX: F ATTEND: Peggy Hutton [facility] AUTHOR: Damion Julian MDREPT SERVICE DT/TIME: 09/18/23 0956* ALL edits or amendments must be made on the electronic/computer document * SubjectiveChief complaint:Gangrene.HPI:Pt is on cefazolin. Pt has been declining labs yet. Review of SystemsConstitutional:Denies: fever. Objective GeneralVS/I O:Vital Signs Date Temp Pulse Resp B/P B/P Mean Pulse Ox FiO2 09/16-09/17 36.4-37.5 74-91 16-20 93-149/51-79 0.0-100.2 91-98 Last Documented: Result Date Time Pulse Ox 91 09/17 0807 B/P 110/71 09/17 0807 B/P Mean 84.1 09/17 0807 Temp 37.0 09/17 0807 Pulse 80 09/17 0807 Resp 20 09/17 0807 O2 Delivery Room air 09/16 2335 O2 Flow Rate 2 09/14 0400 Vital Signs: Date Time Temp Pulse Resp B/P B/P Pulse O2 O2 Flow FiO2 Mean Ox Delivery Rate 09/17 0807 37.0 80 20 110/71 84.1 91 09/17 0550 36.6 74 18 127/73 91.0 95 09/16 2335 37.5 91 19 93/51 0.0 94 Room air 09/16 1915 36.4 89 18 149/76 100.2 97 Room air 09/16 1656 36.7 83 16 135/79 97.6 98 Nasal cannula 09/16 1156 36.8 80 17 111/69 82.7 98 Nasal cannula 24 hour I O ending at 0700: 09/17 0700 09/16 1900 Intake Total 100 Output Total Balance 100 Intake, Oral 100 PATIENT WEIGHT: Weight (lb): Weight (oz): Weight (kg): 63.636 Physical ExamGeneral appearance: chronically ill appearing, frail, awakeHead/Eyes: atraumatic, clear cornea, normal conjunctiva/sclera, normal eyelids/periorb, normocephalicNeck: full range of motion, non-tender, supple/no meningismusCardiovascular: regular rate rhythmRespiratory: symmetric expansion, no distressAbdomen: non-tender, soft, no guardingExtremities: normal temperatureMusculoskeletal: Left toe with ischemic wound, Right leg stumpNeuro/TECHNOLOGY AUDITOR: alert, oriented X 3, normal speechSkin: normal turgor Diagnosis, Assessment PlanFree Text A P:No new labs Imaging:X-ray left foot reviewed 09/14X-ray left tibia reviewed 09/14 Assessment:1. Left foot infected wound with ischemic changes, r/o osteomyelitis.2. PVD.3. Recent left tib-fib fracture. Plan:1. Cefazolin (day 4).2. Vancomycin discontinued because pt has been declining labs.3. Duration of therapy will depend on MRI foot findings.4. Podiatry consulted.5. No labs done yet, check CBC and CMP.6. Wound care. at 1127 RPT #: [id number] OF REPORT PRProgress [id number]:56:00L.[id number] able for patient jzhiWDHJGKPZTEARXM5506-40-09A57:27:12 [facility] 2023-09-17 21:11:00 [id number] ZaSSwvtH0S2P+mYTNjJo2wgmTOJhu [id number]+N1219-37-26U11:11:00 [facility] ([facility])Wound Care Progress NoteREPORT#:[id number] REPORT STATUS: SignedREPORT INITIALIZATION DATE:09/17/23 TIME:2110 PATIENT: FLORY SHAFER UNIT #: [id number]#: [id number] [address] [birth year] AGE: 63 SEX: F ATTEND: Peggy Hutton [facility] AUTHOR: Ángel Dawn MDREPT SERVICE DT/TIME: 09/17/232110* ALL edits or amendments must be made on the electronic/computer document * SubjectiveChief complaint:Wound CareHPI:non cooperative with my examUnable to obtain: uncooperative Objective GeneralVS:Last Documented: Result Date Time Pulse Ox 97 09/16 1914 B/P 149/76 09/16 1914 B/P Mean 100.2 09/16 1914 O2 Delivery Room air 09/16 1914 Temp 97.5 09/16 1914 Pulse 89 09/16 1914 Resp 18 09/16 1914 O2 Flow Rate 2 09/14 0400 PATIENT WEIGHT: Weight (lb): Weight (oz): Weight (kg): 63.636 Medications:Active Meds + DC'd Last 24 HrsLactated Ringer's (LACTATED RINGERS) 1,000 ML .Q85M42N IV Famotidine (PEPCID) 20 MG Q12HR PO Miscellaneous Information (VANCOMYCIN PHARMACY TO DOSE) 1 EACH ASDIR IV (DC) Cefazolin Sodium (KEFZOL) 1 GM Q8HR IV Sterile Water (WATER FOR INJECTION) 10 MLLactated Ringer's (LACTATED RINGERS) 500 ML .Q6H40M IV (DC) Docusate Sodium (COLACE) 100 MG BID PRN PRN PO Hydralazine HCl (APRESOLINE) 10 MG Q6H PRN PRN IV Hydrocodone Bitart/Acetaminophen (NORCO 7.5/325) 1 TAB Q6H PRN PRN PO Ondansetron HCl (ZOFRAN ODT) 4 MG Q4H PRN PRN PO Tramadol HCl (ULTRAM) 50 MG Q6H PRN PRN PO Dietitian Nutrition assessmentThe data set between the solid lines has been imported from the dietitian's assessment. BMI Calculated: 24.9Nutrition related diagnosis: Nutrition diagnosis details: Nutrition problem: Nutrition etiology: Nutrition signs and symptoms: Nutrition prescription: Dietitian name: Assessment completed: Physical ExamGeneral appearance: chronically ill appearingHead/eyes: atraumaticENT: moist mucosal membranesCardiovascular: no rubAbdomen: non-tenderExtremities: no edemaNeuro/TECHNOLOGY AUDITOR: alertSkin: lesions (multiple abrasions), rash (cellulitis of left foot) Wound AssessmentWound Assessment 1: Type/cause: arterial Wound location: foot (left) Tissue layers: with muscle necrosis Site condition: erythema, eschar, necrotic tissue Diagnosis, Assessment PlanProblem List/A P: 1. Pressure injury of deep tissue of sacral region antifungal barrier cream once per RN shift. 2. Pressure-induced deep tissue damage of unspecified buttock antifungal barrier cream once per RN shift. 3. Multiple abrasions leave open to air 4. Gangrene of left foot defer mgmt to Dr. Burgess 5. Cellulitis of left leg improving; defer mgmt to ID, primary 6. Above knee amputation of left lower extremity recommend staple removal under anesthesia. Pt violently refused my offer to try to remove chani. Consultants: burn/wound, podiatry at 2113 RPT #: [id number] OF REPORT PNProcedure [id number]:11:00L.[id number] able for patient aypkMDUKGIEHLMDEWF0441-27-50G57:13:38 [facility] 2023-09-17 12:51:00 [id number]++Mk3 GeQAlGp+8t2g0mGh1fBVkS+PX482244-57-24L08:51:00 [facility] Progress NoteREPORT#:[id number] REPORT STATUS: SignedREPORT INITIALIZATION DATE:09/17/23 TIME:125 PATIENT: FLORY SHAFER UNIT #: [id number]#: [id number] [address] [birth year] AGE: 63 SEX: F ATTEND: Peggy Hutton MDADM AUTHOR: Peggy Hutton MDREPT SERVICE DT/TIME: 09/17/23 1251* ALL edits or amendments must be made on the electronic/computer document * SubjectiveChief complaint:Left foot cellulitis, NO COMPLAINTS, STABLE Objective GeneralVS/I O:Vital Signs: Date Time Temp Pulse Resp B/P B/P Pulse O2 O2 Flow FiO2 Mean Ox Delivery Rate 09/16 1156 98.2 80 17 111/69 82.7 98 Nasal cannula 09/16 0820 98.6 75 16 146/78 100.7 94 Room air 09/16 0307 97.9 87 16 126/76 92.8 95 Room air 09/15 2327 98.1 85 18 134/78 96.3 93 Nasal cannula 09/15 1856 98.1 75 16 121/77 91.6 91 Room air 09/15 1632 98.2 95 16 137/69 91 99 Room air 24 hour I O ending at 0700: 09/16 0700 03/10 1900 Intake Total 575.00 350 Output Total 1500 Balance 575.00 -1150 Intake, IV 75.00 Intake, Oral 500 350 Output, Urine 1500 PATIENT WEIGHT: Weight (lb): Weight (oz): Weight (kg): 63.636 Medications:Active Meds + DC'd Last 24 HrsFamotidine (PEPCID) 20 MG Q12HR PO Miscellaneous Information (VANCOMYCIN PHARMACY TO DOSE) 1 EACH ASDIR IV Cefazolin Sodium (KEFZOL) 1 GM Q8HR IV Sterile Water (WATER FOR INJECTION) 10 MLLactated Ringer's (LACTATED RINGERS) 500 ML .Q6H40M IV Docusate Sodium (COLACE) 100 MG BID PRN PRN PO Hydralazine HCl (APRESOLINE) 10 MG Q6H PRN PRN IV Hydrocodone Bitart/Acetaminophen (NORCO 7.5/325) 1 TAB Q6H PRN PRN PO Ondansetron HCl (ZOFRAN ODT) 4 MG Q4H PRN PRN PO Tramadol HCl (ULTRAM) 50 MG Q6H PRN PRN PO Dietitian nutrition assessmentThe data set between the solid lines has been imported from the dietitian's assessment. BMI Calculated: 24.9Nutrition related diagnosis: Nutrition diagnosis details: Nutrition problem: Nutrition etiology: Nutrition signs and symptoms: Nutrition prescription: Dietitian name: Assessment completed: Physical ExamGeneral appearance: alert, awakeHead/Eyes: atraumatic, normocephalicENT: normal dentition, normal ear left, normal ear right, normal nose, normal pharynx, normal sinusNeck: full range of motion, non-tender, normal thyroid, supple/no meningismus, no bruit/NL carotids, no JVD, no masses or swellingCardiovascular: normal capillary refill, regular rate rhythmRespiratory: symmetric expansion, no distressExtremities: edemaNeuro/TECHNOLOGY AUDITOR: alert, oriented X 3Skin: abnormal color Free Text Obj NotesFree Text Obj Notes: See further description under ankle/foot.Left medial foot with wet gangrene noted at the first MTP with surrounding cellulitis/pressure ulcer, purulent drainage, malodorous. Blanching erythema extends to the knee. Diagnosis, Assessment PlanConsultants: burn/wound, podiatry Free Text DxA P NotesFree text DxA P notes: 63-year-old female with a history of osteogenesis imperfecta, right AKA who is admitted for: #Left foot cellulitis with gangrene- foot x-ray shows no acute displaced fracture or dislocation identified. Normal marrow density and mild generalized soft tissue swelling.- Vancomycin + cefazolin for empirical MRSA and gram neg coverage respectively-ordered WBC, LA, CMP, Mag and Phos. Patient is still refusing lab- obtain MRI to r/o osteo and arterial doppler if patient is agreeable- volunteer services director and wound care provider consulted, appreciate recs. -infectious disease for further evaluation #Right AKA-[place] still present, according to pt states chani been on for 2 years. She has refused the removal of the chani-wound care provider consulted. #H/O Osteogenesis imperfecta- immobility- PT/OT #TibFib Fx- Limited exam as pt declined -ortho consulted. DVT prophylaxis: SCDs.GI prophylaxis: pepcid Code Status: Full code. at 1539 RPT #: [id number] OF REPORT PRProgress [id number]:51:00L.[id number] able for patient krdvGFXHQMPXCXQZVJ4231-94-56K15:39:22 [facility] 2023-09-17 10:49:00 [id number] z8ZGbMaROb+eEy0GfkGRhcs4NnybR p7J+2ASNSyTVabVNretoRpo3Ycv6532-45-78F79:49:00 [facility] ([facility])Infectious Dis. Progress NoteREPORT#:[id number] REPORT STATUS: SignedREPORT INITIALIZATION DATE:09/17/23 TIME:1048 PATIENT: FLORY SHAFER UNIT #: [id number]#: [id number] [address] [birth year] AGE: 63 SEX: F ATTEND: Peggy Hutton MDADM AUTHOR: Damion Julian MDREPT SERVICE DT/TIME: 09/17/23 104* ALL edits or amendments must be made on the electronic/computer document * SubjectiveChief complaint:Gangrene.HPI:Pt is on vancomycin and cefazolin. No labs available yet. Review of SystemsConstitutional:Denies: fever. Objective Physical ExamGeneral appearance: alert, awakeHead/Eyes: atraumatic, clear cornea, normal conjunctiva/sclera, normal eyelids/periorb, normocephalicNeck: full range of motion, non-tender, supple/no meningismusCardiovascular: regular rate rhythmRespiratory: symmetric expansion, no distressAbdomen: non-tender, soft, no guardingExtremities: normal temperatureMusculoskeletal: Left toe with ischemic woundNeuro/TECHNOLOGY AUDITOR: alert, oriented X 3, normal speechSkin: normal turgor Diagnosis, Assessment PlanFree Text A P:No new labs Imaging:X-ray left foot reviewed 09/14X-ray left tibia reviewed 09/14 Assessment:1. Left foot infected wound with ischemic changes, r/o osteomyelitis.2. PVD.3. Recent left tib-fib fracture. Plan:1. Cefazolin (day 3).2. Vancomycin (day 3).3. Duration of therapy will depend on MRI foot findings.4. Podiatry consulted.5. No labs done yet, check CBC and CMP.6. Wound care. at 5712 RPT #: [id number] OF REPORT PRProgress [id number]:49:00L.[id number] able for patient flhmDPBTZDQTRAYCSH7226-46-35I53:52:17 [facility] 2023-09-17 10:03:00 [id number] [id number] lajv6EWhDddMLujfc9s8q1vZQS37926-30-95C32:03:00 [facility])Podiatry Progress NoteREPORT#:[id number] REPORT STATUS: SignedREPORT INITIALIZATION DATE:09/17/23 TIME:1003 PATIENT: FLORY SHAFER UNIT #: [id number]#: [id number] [address] [birth year] AGE: 63 SEX: F ATTEND: Peggy Hutton MDADM AUTHOR: Patricio Chua DPMREPT SERVICE DT/TIME: 09/17/23 1003* ALL edits or amendments must be made on the electronic/computer document * SubjectiveHPI:Seen at bedside. Dressings are clean, dry, intact. Reports no pain. No further complaints at this time Review of Systems Free Text ROS NotesFree Text ROS Notes:14 point review of system was conducted and negative except discussed above Objective GeneralVS:Last Documented: Result Date Time Pulse Ox 94 09/16 08 B/P 146/78 09/16 08 B/P Mean 100.7 09/16 08 O2 Delivery Room air 09/17 819 Temp 98.6 09/16 08 Pulse 75 09/16 0820 Resp 16 09/16 0820 O2 Flow Rate 2 09/14 0400 PATIENT WEIGHT: Weight (lb): Weight (oz): Weight (kg): 63.636 Medications:Active Meds + DC'd Last 24 HrsFamotidine (PEPCID) 20 MG Q12HR PO Miscellaneous Information (VANCOMYCIN PHARMACY TO DOSE) 1 EACH ASDIR IV Cefazolin Sodium (KEFZOL) 1 GM Q8HR IV Sterile Water (WATER FOR INJECTION) 10 MLLactated Ringer's (LACTATED RINGERS) 500 ML .Q6H40M IV Docusate Sodium (COLACE) 100 MG BID PRN PRN PO Hydralazine HCl (APRESOLINE) 10 MG Q6H PRN PRN IV Hydrocodone Bitart/Acetaminophen (NORCO 7.5/325) 1 TAB Q6H PRN PRN PO Ondansetron HCl (ZOFRAN ODT) 4 MG Q4H PRN PRN PO Tramadol HCl (ULTRAM) 50 MG Q6H PRN PRN PO I O:24 hour I O ending at 0700: 09/16 0700 09/15 1900 Intake Total 575.00 350 Output Total 1500 Balance 575.00 -1150 Intake, IV 75.00 Intake, Oral 500 350 Output, Urine 1500 Dietitian nutrition assessmentThe data set between the solid lines has been imported from the dietitian's assessment. BMI Calculated: 24.9Nutrition related diagnosis: Nutrition diagnosis details: Nutrition problem: Nutrition etiology: Nutrition signs and symptoms: Nutrition prescription: Dietitian name: Assessment completed: Physical ExamGeneral appearance: alert, awake, orientedWound/incision: Location:Left medial foot by the first metatarsal: There is a full-thickness ulceration that measures 4 x 2 x 0.2 cm. The base is 80% granular and 20% slough. There is no maggots noted in the wound base. The wound does not probe to bone. There is surrounding erythema and warmth. There is no malodor. There is no lymphatic streaking. There is no crepitusHead/Eyes: clear cornea, EOMI, normocephalicENT: normal ear left, normal ear rightNeck: full range of motion, non-tender, no bruit/NL carotidsCardiovascular: normal capillary refillRespiratory: clear to auscultation, no distress, no tendernessAbdomen: soft, no guarding, no reboundGenitourinary: not indicatedExtremities:Left moves all, Left no evidence of DVTLE vascular pulse assess:Nonpalpable L popliteal, Nonpalpable L posterior tibialis, Nonpalpable L dorsalis pedisCapillary refill: Capillary refill (in seconds): > 5 seconds Left footFoot: swelling, contracture flexion at the knee, left right bkaNeuro/TECHNOLOGY AUDITOR: alert, oriented X 3Lymphatics: axilla normal, inguinal normal, no lymphadenopathyPsychiatry: no hallucinations, normal affect, normal judgment/insight, normal mood Diagnosis, Assessment PlanFree Text A P:63-year-old female with a history of osteogenesis imperfecta presents to the hospital with left first metatarsal ischemic ulceration and surrounding cellulitis.The patient is wheelchair-bound. 1. Left foot ischemic ulceration with surrounding cellulitis. There is a concern of underlying osteomyelitis.Wound care: Silver alginate, 4 x 4, paper tape. Recommend daily dressing changes. Recommend clean with normal saline.X-rays orderedDo not get wetElevateRecommend every 2 turns to prevent ulceration.Okay to weight-bear as toleratedAntibiotics as per internal medicine/infectious disease recommendation 2. Lipodermatosclerosis in the presence of concern of peripheral arterial diseaseArterial Dopplers and SUSY reviewed: Concern of stenosis, however the pulses are faintly palpable. This may be due to edema. Recommend continue monitor. If conditions worsen, possible vascular surgery evaluation. I will determine further plans after imaging studies result. Interim, recommendcontinue local wound care and antibiotic therapy. Thank you for the consultation 09/16/23 1. Left foot ischemic ulceration with surrounding cellulitis. There is a concern of underlying osteomyelitis.Wound care: Silver alginate, 4 x 4, paper tape. Recommend daily dressing changes. Recommend clean with normal saline.Foot x-rays pendingDo not get wetElevateRecommend every 2 turns to prevent ulceration.Okay to weight-bear as toleratedAntibiotics as per internal medicine/infectious disease recommendation 2. Lipodermatosclerosis in the presence of concern of peripheral arterial diseaseArterial Dopplers and SUSY reviewed: Concern of stenosis, however the pulses are faintly palpable. This may be due to edema. Recommend continue monitor. If conditions worsen, possible vascular surgery evaluation. 3. Tib-fib fractureRecommend orthopedic consultation. I will determine further plans after imaging studies result. Interim, recommendcontinue local wound care and antibiotic therapy. . Left foot ischemic ulceration with surrounding cellulitis. There is a concern of underlying osteomyelitis.Wound care: Silver alginate, 4 x 4, paper tape. Recommend daily dressing changes. Recommend clean with normal saline.Foot x-rays results reviewed- frature on metatarsal, appears stableDo not get wetElevateRecommend every 2 turns to prevent ulceration.Okay to weight-bear as toleratedAntibiotics as per internal medicine/infectious disease recommendation 2. Lipodermatosclerosis in the presence of concern of peripheral arterial diseaseArterial Dopplers and SUSY reviewed: Concern of stenosis, however the pulses are faintly palpable. This may be due to edema. Recommend continue monitor. If conditions worsen, possible vascular surgery evaluation. 3. Tib-fib fractureRecommend orthopedic consultation. Dr. Chua is covering for Dr. Guerreroultants: burn/wound, podiatry at 0028 RPT #: [id number] OF REPORT PRProgress [id number]:03:00L.[id number] able for patient malwPLUGKAZHSJVYRX3709-84-89I07:28:22 [facility] 2023-09-16 20:43:00 [id number] RMYL9uTFG5jxiZ+CtWu4dLMouxCaS HOJ8t8qXCbRyQZ6IQv7m5iUnSuK7499-83-69W64:43:00 [facility] ([facility])Wound Care Progress NoteREPORT#:[id number] REPORT STATUS: SignedREPORT INITIALIZATION DATE:09/16/23 TIME:2042 PATIENT: FLORY SHAFER UNIT #: [id number]#: [id number] [address] [birth year] AGE: 63 SEX: F ATTEND: Peggy Hutton [facility] AUTHOR: Ángel Dawn MDREPT SERVICE DT/TIME: 09/16/232042* ALL edits or amendments must be made on the electronic/computer document * SubjectiveChief complaint:Wound Care HPI:refused my attempt to evaluate the chani better on the stump. "I came here for my foot, not my f #@ing chani. Doctor said I can keep them."Unable to obtain: combative Objective GeneralVS:Last Documented: Result Date Time Pulse Ox 91 09/16 1855 B/P 121/77 09/16 1855 B/P Mean 91.6 09/16 1855 O2 Delivery Room air 09/16 1855 Temp 98.1 09/16 1855 Pulse 75 09/16 1855 Resp 16 09/16 1855 O2 Flow Rate 2 09/14 0400 PATIENT WEIGHT: Weight (lb): Weight (oz): Weight (kg): 63.636 Medications:Active Meds + DC'd Last 24 HrsFamotidine (PEPCID) 20 MG Q12HR PO Miscellaneous Information (VANCOMYCIN PHARMACY TO DOSE) 1 EACH ASDIR IV Cefazolin Sodium (KEFZOL) 1 GM Q8HR IV Sterile Water (WATER FOR INJECTION) 10 MLLactated Ringer's (LACTATED RINGERS) 500 ML .Q6H40M IV Docusate Sodium (COLACE) 100 MG BID PRN PRN PO Hydralazine HCl (APRESOLINE) 10 MG Q6H PRN PRN IV Hydrocodone Bitart/Acetaminophen (NORCO 7.5/325) 1 TAB Q6H PRN PRN PO Ondansetron HCl (ZOFRAN ODT) 4 MG Q4H PRN PRN PO Tramadol HCl (ULTRAM) 50 MG Q6H PRN PRN PO Dietitian Nutrition assessmentThe data set between the solid lines has been imported from the dietitian's assessment. BMI Calculated: 24.9Nutrition related diagnosis: Nutrition diagnosis details: Nutrition problem: Nutrition etiology: Nutrition signs and symptoms: Nutrition prescription: Dietitian name: Assessment completed: Physical ExamGeneral appearance: chronically ill appearingHead/eyes: atraumaticENT: moist mucosal membranesCardiovascular: no rubAbdomen: non-tenderExtremities: no edemaNeuro/TECHNOLOGY AUDITOR: alertSkin: lesions (multiple abrasions), rash (cellulitis of left foot) Wound AssessmentWound Assessment 1: Type/cause: arterial Wound location: foot (left) Tissue layers: with muscle necrosis Site condition: erythema, eschar, necrotic tissue Diagnosis, Assessment PlanProblem List/A P: 1. Pressure injury of deep tissue of sacral region antifungal barrier cream once per RN shift. 2. Pressure-induced deep tissue damage of unspecified buttock antifungal barrier cream once per RN shift. 3. Multiple abrasions leave open to air 4. Gangrene of left foot defer mgmt to Dr. Burgess 5. Cellulitis of left leg defer mgmt to ID, primary 6. Above knee amputation of left lower extremity recommend staple removal under anesthesia. Pt violently refused my offer to try to remove chani. Consultants: burn/wound, podiatry at 2047 RPT #: [id number] OF REPORT PNProcedure [id number]:43:00L.[id number] able for patient nfmcKNCSZSZBJKBYXH5858-39-21M52:47:28 [facility] 2023-09-16 14:03:00 [id number]/NKb XhJmjjKowAcyRyhn7DWiPABDhvB30 5Lao4GIx9eoKqNZn1fES6L5wuje0961-17-25Q62:03:00 [facility] ([facility])Infect Disease Consult NoteREPORT#:[id number] REPORT STATUS: SignedREPORT INITIALIZATION DATE:09/16/23 TIME:1403 PATIENT: FLORY SHAFER UNIT #: [id number]#: [id number] [address] [birth year] AGE: 63 SEX: F ATTEND: Peggy Hutton [facility] AUTHOR: Damion Julian MDREPT SERVICE DT/TIME: 09/16/23 1403* ALL edits or amendments must be made on the electronic/computer document * History of Present IllnessChief complaint:Gangrene.PCP:PCP: No Primary or Family Physician HPI:63-year-old female with h/o osteogenesis imperfecta who [facility] constant pain of the left leg associated with swelling. Pt had a cast on her leg and had been on for about 3 months from a previous tib-fib fracture. The cast was removed and revealed an ischemic great toe wound. History - Adult longitudinalAdditional medical history:Osteogenesis imperfectaAdditional family history:Reviewed, NCSmoking status for patients 13 years old or older: Unknown,if ever smokedAllergies:Coded Allergies:No Known Allergies (09/15/23) Review of SystemsUnable to obtain due to:Poor historian Objective GeneralVS/I O:Vital Signs Date Temp Pulse Resp B/P B/P Mean Pulse Ox FiO2 09/15-09/16 36.6-37.0 75-100 16-18 121-146/69-82 91-100.7 91-99 Last Documented: Result Date Time Pulse Ox 94 09/16 0820 B/P 146/78 09/16 0820 B/P Mean 100.7 09/16 0820 O2 Delivery Room air 09/16 0820 Temp 37.0 09/16 0820 Pulse 75 09/16 0820 Resp 16 09/16 0820 O2 Flow Rate 2 09/14 0400 Vital Signs: Date Time Temp Pulse Resp B/P B/P Pulse O2 O2 Flow FiO2 Mean Ox Delivery Rate 09/16 0820 37.0 75 16 146/78 100.7 94 Room air 09/16 0307 36.6 87 16 126/76 92.8 95 Room air 09/15 2327 36.7 85 18 134/78 96.3 93 Nasal cannula 09/15 1856 36.7 75 16 121/77 91.6 91 Room air 09/15 1632 36.8 95 16 137/69 91 99 Room air 09/15 1119 36.8 100 16 130/82 98 99 Room air 24 hour I O ending at 0700: 09/16 0700 09/15 1900 Intake Total 575.00 350 Output Total 1500 Balance 575.00 -1150 Intake, IV 75.00 Intake, Oral 500 350 Output, Urine 1500 PATIENT WEIGHT: Weight (lb): Weight (oz): Weight (kg): 63.636 Physical ExamGeneral appearance: alert, awake, oriented, no acute distress, mental status normal, no respiratory distressHead/Eyes: atraumatic, clear cornea, normal conjunctiva/sclera, normal eyelids/periorb, normocephalicENT: moist mucosal membranes, normal noseNeck: full range of motion, non-tender, supple/no meningismusCardiovascular: regular rate rhythmRespiratory: symmetric expansion, no distressAbdomen: non-tender, normal bowel sounds, soft, no guardingGenitourinary: no flank painExtremities: normal temperatureMusculoskeletal: Left toe with ischemic woundNeuro/TECHNOLOGY AUDITOR: alert, oriented X 3, normal speechSkin: normal turgorPsychiatry: normal affect, normal mood Diagnosis, Assessment Plan Free Text DxA P NotesFree text DxA P notes:No labs Imaging:X-ray left foot reviewed 09/14X-ray left tibia reviewed 09/14 Assessment:1. Left foot infected wound with ischemic changes, r/o osteomyelitis.2. PVD.3. Recent left tib-fib fracture. Plan:1. Cefazolin (day 2).2. Vancomycin (day 2).3. Duration of therapy will depend on MRI foot findings.4. Podiatry consulted.5. No labs done yet, check CBC and CMP.6. Wound care.7. Ortho sx consulted. Thank you for this consult. at 0908 [facility] #: [id number] OF REPORT VMZslpjfkusxbn2128-99-32I69:03:00L.[id number] 137AVAvailable for patient fygaQFNOOWKIVRSXTO2250-61-64P40:35:13 [facility] 2023-09-16 09:33:00 [id number] gDx8bmLIbJS9QwzmIWdNToRXibNJc O4pxWKmRr+PghUkF9DbD1iJaVzW4404-87-49R54:33:00 [facility])Hospitalist Progress NoteREPORT#:[id number] REPORT STATUS: SignedREPORT INITIALIZATION DATE:09/16/23 TIME:932 PATIENT: FLORY SHAFER UNIT #: [id number]#: [id number] [address] [birth year] AGE: 63 SEX: F ATTEND: Peggy Hutton MDADM AUTHOR: Violette Garrido NPREPT SERVICE DT/TIME: 09/16/23932* ALL edits or amendments must be made on the electronic/computer document * Violette Garrido 09/16/23932:SubjectiveChief complaint:Left foot cellulitis, NO COMPLAINTS, STABLE Objective GeneralVS/I O:Vital Signs: Date Time Temp Pulse Resp B/P B/P Pulse O2 O2 Flow FiO2 Mean Ox Delivery Rate 09/16 719 98.1 89 16 128/77 0.0 98 Room air 09/15 0326 98.1 101 18 139/74 0.0 96 Nasal cannula 09/14 2322 98.2 107 18 134/81 98.5 96 Nasal cannula 09/14 1853 98.2 101 17 114/61 78.4 94 Nasal cannula 09/14 1602 98.4 88 16 124/76 92.0 97 Room air 09/14 1307 98.4 92 16 110/69 82.5 97 Room air 09/14 1200 91 122/69 91 97 09/14 1100 95 118/56 81 97 09/14 1030 95 134/64 92 98 24 hour I O ending at 0700: 09/15 0700 09/14 1900 Intake Total 240 Output Total 500 Balance -500 240 Intake, Oral 240 Output, Urine 500 PATIENT WEIGHT: Weight (lb): Weight (oz): Weight (kg): 63.636 Medications:Active Meds + DC'd Last 24 HrsFamotidine (PEPCID) 20 MG Q12HR PO Famotidine (PEPCID) 20 MG Q12HR IV (DC) Miscellaneous Information (VANCOMYCIN PHARMACY TO DOSE) 1 EACH ASDIR IV (PEND) Vancomycin HCl (Vancomycin HCl) 1,250 MG ONCE ONE IV (DC) Sodium Chloride (0.9% Sodium Chloride) 250 MLCefazolin Sodium (KEFZOL) 1 GM Q8HR IV Sterile Water (WATER FOR INJECTION) 10 MLLactated Ringer's (LACTATED RINGERS) 500 ML .Q6H40M IV Docusate Sodium (COLACE) 100 MG BID PRN PRN PO Hydralazine HCl (APRESOLINE) 10 MG Q6H PRN PRN IV Hydrocodone Bitart/Acetaminophen (NORCO 7.5/325) 1 TAB Q6H PRN PRN PO Ondansetron HCl (ZOFRAN ODT) 4 MG Q4H PRN PRN PO Tramadol HCl (ULTRAM) 50 MG Q6H PRN PRN PO Physical ExamGeneral appearance: alertENT: normal dentition, normal ear left, normal ear right, normal nose, normal pharynx, normal sinusNeck: full range of motion, non-tender, normal thyroid, supple/no meningismus, no bruit/NL carotids, no JVD, no masses or swellingCardiovascular: normal capillary refill, regular rate rhythmRespiratory: symmetric expansion, no distressExtremities: edemaNeuro/TECHNOLOGY AUDITOR: alert, oriented X 3Skin: abnormal color ResultsRadiology data:Recent Impressions:RADIOLOGY - XR FOOT 3+V LT 09/14 1410 Report Impression - Status: SIGNED Entered: 09/16/2023 0843 IMPRESSION:1. Limited examination due to the extensive osteopenia with diffusesoft tissue swelling and arthrosis along with subacute to chronicappearing transverse fracture through the 1st metatarsal shaft.Impression By: Vlad Kuo M.D.RADIOLOGY - XR TIBIA/FIBULA 2 V LT 09/14 1415 Report Impression - Status: SIGNED Entered: 09/15/2023 1539 IMPRESSION:1. Fractures of the mid to distal thirds of the tibia and fibula withminimal displacement.Impression By: Madeline Garcia.D. Free Text Obj NotesFree Text Obj Notes: See further description under ankle/foot.Left medial foot with wet gangrene noted at the first MTP with surrounding cellulitis/pressure ulcer, purulent drainage, malodorous. Blanching erythema extends to the knee. Diagnosis, Assessment Plan Free Text DxA P NotesFree text DxA P notes: 63-year-old female with a history of osteogenesis imperfecta, right AKA who is admitted for: #Left foot cellulitis with gangrene- foot x-ray shows no acute displaced fracture or dislocation identified. Normal marrow density and mild generalized soft tissue swelling.- Vancomycin + cefazolin for empirical MRSA and gram neg coverage respectively- obtain WBC, LA, CMP, Mag and Phos- obtain MRI to r/o osteo and arterial doppler at AM- volunteer services director and wound care provider consulted, appreciate recs. -infectious disease for further evaluation #Right AKA-[place] still present, according to pt states chani been on for 2 years-wound care provider consulted #H/O Osteogenesis imperfecta- immobility- PT/OT DVT prophylaxis: SCDs.GI prophylaxis: pepcid Code Status: Full code. Peggy Hutton 09/16/23 1851:Attestations Physician AttestationAgree w/findings plan:Agree with the findings and plan as documented by Ms. Garrido. at 0934 at 1852 RPT #: [id number] OF REPORT PRProgress [id number]:33:00L.[id number] able for patient glkaJXDNTKUZQAHXYS3282-77-25U31:34:36 [facility] 2023-09-16 06:55:00 [id number] 2+D91CWteq5epfgZHt1IuJzy858di 6R8O1xwV4I58CTs1sG/42zOboFt1864-94-91N44:55:00 [facility] ([facility])Podiatry Progress NoteREPORT#:[id number] REPORT STATUS: SignedREPORT INITIALIZATION DATE:09/16/23 TIME:654 PATIENT: FLORY SHAFER UNIT #: [id number]#: [id number] [address] AGE: 63 SEX: F ATTEND: Peggy Hutton MDADM AUTHOR: Liberty Burgess DPMREPT SERVICE DT/TIME: 09/16/23654* ALL edits or amendments must be made on the electronic/computer document * SubjectiveHPI:Seen at bedside. Dressings are clean, dry, intact. Reports no pain. No further complaints at this time Review of Systems Free Text ROS NotesFree Text ROS Notes:14 point review of system was conducted and negative except discussed above Objective GeneralVS:Last Documented: Result Date Time Pulse Ox 96 09/15 0326 B/P 139/74 09/15 0326 B/P Mean 0.0 09/15 0326 O2 Delivery Nasal cannula 09/15 032 Temp 98.1 09/15 0326 Pulse 101 09/15 0326 Resp 18 09/15 0326 O2 Flow Rate 2 09/14 0400 PATIENT WEIGHT: Weight (lb): Weight (oz): Weight (kg): 63.636 Medications:Active Meds + DC'd Last 24 HrsFamotidine (PEPCID) 20 MG Q12HR PO Famotidine (PEPCID) 20 MG Q12HR IV (DC) Miscellaneous Information (VANCOMYCIN PHARMACY TO DOSE) 1 EACH ASDIR IV (PEND) Vancomycin HCl (Vancomycin HCl) 1,250 MG ONCE ONE IV (DC) Sodium Chloride (0.9% Sodium Chloride) 250 MLCefazolin Sodium (KEFZOL) 1 GM Q8HR IV Sterile Water (WATER FOR INJECTION) 10 MLLactated Ringer's (LACTATED RINGERS) 500 ML .Q6H40M IV Vancomycin HCl (VANCOMYCIN HCL) 1,000 MG ONCE ONE IV (DC) Sodium Chloride (0.9% Sodium Chloride) 250 MLDocusate Sodium (COLACE) 100 MG BID PRN PRN PO Hydralazine HCl (APRESOLINE) 10 MG Q6H PRN PRN IV Hydrocodone Bitart/Acetaminophen (NORCO 7.5/325) 1 TAB Q6H PRN PRN PO Ondansetron HCl (ZOFRAN ODT) 4 MG Q4H PRN PRN PO Tramadol HCl (ULTRAM) 50 MG Q6H PRN PRN PO I O:24 hour I O ending at 0700: 09/15 0700 09/14 1900 Intake Total 240 Output Total Balance 240 Intake, Oral 240 Dietitian nutrition assessmentThe data set between the solid lines has been imported from the dietitian's assessment. BMI Calculated: 24.9Nutrition related diagnosis: Nutrition diagnosis details: Nutrition problem: Nutrition etiology: Nutrition signs and symptoms: Nutrition prescription: Dietitian name: Assessment completed: Physical ExamGeneral appearance: alert, awake, orientedWound/incision: Location:Left medial foot by the first metatarsal: There is a full-thickness ulceration that measures 4 x 2 x 0.2 cm. The base is 80% granular and 20% slough. There is no maggots noted in the wound base. The wound does not probe to bone. There is surrounding erythema and warmth. There is no malodor. There is no lymphatic streaking. There is no crepitusHead/Eyes: clear cornea, EOMI, normocephalicENT: normal ear left, normal ear rightNeck: full range of motion, non-tender, no bruit/NL carotidsCardiovascular: normal capillary refillRespiratory: clear to auscultation, no distress, no tendernessAbdomen: soft, no guarding, no reboundGenitourinary: not indicatedExtremities:Left moves all, Left no evidence of DVTLE vascular pulse assess:Nonpalpable L popliteal, Nonpalpable L posterior tibialis, Nonpalpable L dorsalis pedisCapillary refill: Capillary refill (in seconds): > 5 seconds Left footFoot: swelling, contracture flexion at the knee, left right bkaNeuro/TECHNOLOGY AUDITOR: alert, oriented X 3Lymphatics: axilla normal, inguinal normal, no lymphadenopathyPsychiatry: no hallucinations, normal affect, normal judgment/insight, normal mood Diagnosis, Assessment PlanFree Text A P:63-year-old female with a history of osteogenesis imperfecta presents to the hospital with left first metatarsal ischemic ulceration and surrounding cellulitis.The patient is wheelchair-bound. 1. Left foot ischemic ulceration with surrounding cellulitis. There is a concern of underlying osteomyelitis.Wound care: Silver alginate, 4 x 4, paper tape. Recommend daily dressing changes. Recommend clean with normal saline.X-rays orderedDo not get wetElevateRecommend every 2 turns to prevent ulceration.Okay to weight-bear as toleratedAntibiotics as per internal medicine/infectious disease recommendation 2. Lipodermatosclerosis in the presence of concern of peripheral arterial diseaseArterial Dopplers and SUSY reviewed: Concern of stenosis, however the pulses are faintly palpable. This may be due to edema. Recommend continue monitor. If conditions worsen, possible vascular surgery evaluation. I will determine further plans after imaging studies result. Interim, recommendcontinue local wound care and antibiotic therapy. Thank you for the consultation 09/16/23 1. Left foot ischemic ulceration with surrounding cellulitis. There is a concern of underlying osteomyelitis.Wound care: Silver alginate, 4 x 4, paper tape. Recommend daily dressing changes. Recommend clean with normal saline.Foot x-rays pendingDo not get wetElevateRecommend every 2 turns to prevent ulceration.Okay to weight-bear as toleratedAntibiotics as per internal medicine/infectious disease recommendation 2. Lipodermatosclerosis in the presence of concern of peripheral arterial diseaseArterial Dopplers and SUSY reviewed: Concern of stenosis, however the pulses are faintly palpable. This may be due to edema. Recommend continue monitor. If conditions worsen, possible vascular surgery evaluation. 3. Tib-fib fractureRecommend orthopedic consultation. I will determine further plans after imaging studies result. Interim, recommendcontinue local wound care and antibiotic therapy. Consultants: burn/wound, podiatry at 0656 RPT #: [id number] OF REPORT PRProgress tkms3229-72-69S90:55:00L.[id number] able for patient ggcuADOGGLWGIOZRHT6938-70-42F09:57:14 [facility] 2023-09-15 19:11:00 [id number] s3dGFj6qD4lgi3d+QEuGxseGPxwGM pbmqfMADKi7jpiey1SJpi/DXuei6034-06-79F49:11:00 [facility])Wound Care Consultation NoteREPORT#:[id number] REPORT STATUS: SignedREPORT INITIALIZATION DATE:09/15/23 TIME:1910 PATIENT: FLORY SHAFER UNIT #: [id number]#: [id number] [address] [birth year] AGE: 63 SEX: F ATTEND: Peggy Hutton [facility] AUTHOR: Ángel Dawn MDREPT SERVICE DT/TIME: 09/15/231910* ALL edits or amendments must be made on the electronic/computer document * HPI/History - Adult longitudRequesting clinician: Suman Calabrese for consult:Wound CareHPI:Ms. Flory Shafer is a 63 year old lady with a history of osteogenesis imperfecta presenting as a transfer from [facility] for cellulitis of the left leg. Patient presented there with complaints of not feeling well. She had a cast on her leg and had been on for about 3 months fromher previous tib-fib fracture. Was removed revealing cellulitis and a gangrenous infection of the foot around the great toe. Patient was transferred here for further treatment and orthopedic surgery consultation.Smoking status for patients 13 years old or older: Unknown,if ever smokedAllergies:Coded Allergies:No Known Allergies (09/15/23) Review of SystemsUnable to obtain due to:agitated Objective GeneralVS:Last Documented: Result Date Time Pulse Ox 94 09/14 1852 B/P 114/61 09/14 1852 B/P Mean 78.4 09/14 1852 O2 Delivery Nasal cannula 09/14 1852 Temp 98.2 09/14 1852 Pulse 101 09/14 1852 Resp 17 09/14 1852 O2 Flow Rate 2 09/14 0400 PATIENT WEIGHT: Weight (lb): Weight (oz): Weight (kg): 63.636 Medications:Active Meds + DC'd Last 24 HrsFamotidine (PEPCID) 20 MG Q12HR PO Famotidine (PEPCID) 20 MG Q12HR IV (DC) Miscellaneous Information (VANCOMYCIN PHARMACY TO DOSE) 1 EACH ASDIR IV (PEND) Vancomycin HCl (Vancomycin HCl) 1,250 MG ONCE ONE IV (DC) Sodium Chloride (0.9% Sodium Chloride) 250 MLCefazolin Sodium (KEFZOL) 1 GM Q8HR IV Sterile Water (WATER FOR INJECTION) 10 MLLactated Ringer's (LACTATED RINGERS) 500 ML .Q6H40M IV Vancomycin HCl (VANCOMYCIN HCL) 1,000 MG ONCE ONE IV (DC) Sodium Chloride (0.9% Sodium Chloride) 250 MLCeftriaxone Sodium (ROCEPHIN) 1,000 MG Q24H IV (DC) Sterile Water (WATER FOR INJECTION) 10 MLDocusate Sodium (COLACE) 100 MG BID PRN PRN PO Hydralazine HCl (APRESOLINE) 10 MG Q6H PRN PRN IV Hydrocodone Bitart/Acetaminophen (NORCO 7.5/325) 1 TAB Q6H PRN PRN PO Ondansetron HCl (ZOFRAN ODT) 4 MG Q4H PRN PRN PO Tramadol HCl (ULTRAM) 50 MG Q6H PRN PRN PO Dietitian Nutrition assessmentThe data set between the solid lines has been imported from the dietitian's assessment. BMI Calculated: 24.9Nutrition related diagnosis: Nutrition diagnosis details: Nutrition problem: Nutrition etiology: Nutrition signs and symptoms: Nutrition prescription: Dietitian name: Assessment completed: Physical ExamGeneral appearance: frailHead/eyes: atraumaticENT: moist mucosal membranesCardiovascular: no rubAbdomen: non-tenderExtremities: no edemaNeuro/TECHNOLOGY AUDITOR: alertSkin: lesions (multiple abrasions), rash (cellulitis of left foot) Wound AssessmentWound Assessment 1: Type/cause: arterial Wound location: foot (left) Tissue layers: with muscle necrosis Site condition: erythema, eschar, necrotic tissue Diagnosis, Assessment PlanProblem List/A P: 1. Pressure injury of deep tissue of sacral region A P antifungal barrier cream once per RN shift. 2. Pressure-induced deep tissue damage of unspecified buttock A P antifungal barrier cream once per RN shift. 3. Multiple abrasions 4. Gangrene of left foot A P defer mgmt to Dr. Burgess 5. Cellulitis of left leg A P defer mgmt to ID, primary at 1943 RPT #: [id number] OF REPORT ZAOqvpdppmtdes0014-12-30Y76:11:00L.[id number] 202AVAvailable for patient cbdhCJVFOZHXASKZZN7944-38-02Y63:44:04 [facility] 2023-09-15 14:29:00 [id number]/ yhTZgGlVtc8cuqw3B4sMM+Yre53R+ L4jYzMOYiXOsegmOK9AIzMMIBou9265-78-09U10:29:00 [facility] ([facility]ospitalist Progress NoteREPORT#:[id number] REPORT STATUS: SignedREPORT INITIALIZATION DATE:09/15/23 TIME:1428 PATIENT: FLORY SHAFER UNIT #: [id number]#: [id number] [address] [birth year] AGE: 63 SEX: F ATTEND: Peggy Hutton [facility] AUTHOR: Violette Garrido NPREPT SERVICE DT/TIME: 09/15/231428* ALL edits or amendments must be made on the electronic/computer document * Violette Garrido 09/15/231428:SubjectiveChief complaint:Left foot cellulitisHPI:Patient is a 63-year-old female with a history of osteogenesis imperfecta presenting as a transfer from [facility] for cellulitis of the left leg. Patient presented there with complaints of not feeling well. She hada cast on her leg and had been on for about 3 months from her previous tib-fib fracture. Was removed revealing cellulitis and a gangrenous infection of the foot around the great toe. Patient was transferred here for further treatment and orthopedic surgery consultation. Objective GeneralVS/I O:Vital Signs: Date Time Temp Pulse Resp B/P B/P Pulse O2 O2 Flow FiO2 Mean Ox Delivery Rate 09/14 1307 98.4 92 16 110/69 82.5 97 Room air 09/14 1200 91 122/69 91 97 09/14 1100 95 118/56 81 97 09/14 1030 95 134/64 92 98 09/14 0930 93 116/57 82 96 09/14 0830 92 119/59 85 98 09/14 0730 95 125/67 91 96 09/14 0700 92 135/66 93 97 09/14 0600 100 108/75 87 96 / 0400 98.8 18 96 Nasal 2 cannula 09/14 0400 98 128/58 96 09/14 0300 97 126/58 84 91 09/14 0200 92 137/64 91 / 0130 90 123/58 92 09/14 0029 98.5 89 18 137/72 93 97 Room air 24 hour I O ending at 0700: 09/14 0700 09/13 1900 Intake Total Output Total Balance Patient 63.636 kg Weight Weight Estimated Measurement Method PATIENT WEIGHT: Weight (lb): Weight (oz): Weight (kg): 63.636 Medications:Active Meds + DC'd Last 24 HrsFamotidine (PEPCID) 20 MG Q12HR IV Miscellaneous Information (VANCOMYCIN PHARMACY TO DOSE) 1 EACH ASDIR IV (PEND) Vancomycin HCl (Vancomycin HCl) 1,250 MG ONCE ONE IV (DC) Sodium Chloride (0.9% Sodium Chloride) 250 MLCefazolin Sodium (KEFZOL) 1 GM Q8HR IV Sterile Water (WATER FOR INJECTION) 10 MLLactated Ringer's (LACTATED RINGERS) 500 ML .Q6H40M IV Vancomycin HCl (VANCOMYCIN HCL) 1,000 MG ONCE ONE IV (DC) Sodium Chloride (0.9% Sodium Chloride) 250 MLCeftriaxone Sodium (ROCEPHIN) 1,000 MG Q24H IV (DC) Sterile Water (WATER FOR INJECTION) 10 MLDocusate Sodium (COLACE) 100 MG BID PRN PRN PO Hydralazine HCl (APRESOLINE) 10 MG Q6H PRN PRN IV Hydrocodone Bitart/Acetaminophen (NORCO 7.5/325) 1 TAB Q6H PRN PRN PO Ondansetron HCl (ZOFRAN ODT) 4 MG Q4H PRN PRN PO Tramadol HCl (ULTRAM) 50 MG Q6H PRN PRN PO Physical ExamGeneral appearance: alert, awakeENT: normal dentition, normal ear left, normal ear right, normal nose, normal pharynx, normal sinusNeck: full range of motion, non-tender, normal thyroid, supple/no meningismus, no bruit/NL carotids, no JVD, no masses or swellingCardiovascular: normal capillary refill, regular rate rhythmRespiratory: symmetric expansion, no distressExtremities: edemaNeuro/TECHNOLOGY AUDITOR: alert, oriented X 3Skin: abnormal color Free Text Obj NotesFree Text Obj Notes: See further description under ankle/foot.Left medial foot with wet gangrene noted at the first MTP with surrounding cellulitis/pressure ulcer, purulent drainage, malodorous. Blanching erythema extends to the knee. Diagnosis, Assessment PlanConsultants: burn/wound, podiatry Free Text DxA P NotesFree text DxA P notes: 63-year-old female with a history of osteogenesis imperfecta, right AKA who is admitted for: #Left foot cellulitis with gangrene- foot x-ray shows no acute displaced fracture or dislocation identified. Normal marrow density and mild generalized soft tissue swelling.- Vancomycin + cefazolin for empirical MRSA and gram neg coverage respectively- obtain WBC, LA, CMP, Mag and Phos- obtain MRI to r/o osteo and arterial doppler at AM- volunteer services director and wound care provider consulted, appreciate recs. -infectious disease for further evaluation #Right AKA-[place] still present, according to pt states chani been on for 2 years-wound care provider consulted #H/O Osteogenesis imperfecta- immobility- PT/OT chemical VTE prophylaxis held due to anticipated surgical intervention DVT prophylaxis: SCDs.GI prophylaxis: pepcidDisposition Anticipated: Home with family support. Time Spent on Patient Care, Coordination and Counselin min. Code Status: Full code. Peggy Hutton 09/16/23 1851:Attestations Physician AttestationAgree w/findings plan:Agree with the findings and plan as documented by Ms. Garrido. Patient to continues to refuse care[ ] at 1431 at 1851 RPT #: [id number] OF REPORT PRProgress [id number]:29:00L.[id number] able for patient [id number]:31:31 [facility] 2023-09-15 13:29:00 [id number]/[id number] mP/eRQy0uhyZtoUdLtf2O4Kw+[id number]:29:00 [facility] ([facility])Podiatry Consult NoteREPORT#:[id number] REPORT STATUS: SignedREPORT INITIALIZATION DATE:09/15/23 TIME:132 PATIENT: FLORY SHAFER UNIT #: [id number]#: [id number] [address] AGE: 63 SEX: F ATTEND: Peggy Hutton MDA AUTHOR: Liberty Burgess DPMREPT SERVICE DT/TIME: 09/15/23 1329* ALL edits or amendments must be made on the electronic/computer document * History of Present IllnessHPI: 63-year-old female with a history of osteogenesis imperfecta presenting as a transfer from [facility] for cellulitis of the left leg. Podiatry has been consulted for further evaluation and care. The patient is a poor historian and is currently refusing to give me a history. According to thepatient, she states that she is wheelchair-bound, homeless. The remaining history is being obtained by chart review: Patient presented there with complaints of not feeling well. She had a cast on her leg and had been on for about 3 months from her previous tib-fib fracture. Was removed revealing cellulitis and a gangrenous infection of the foot around the great toe. The patient currently reports throbbing/aching pain to the left foot. The patient currently denies any nausea, vomiting, fevers, chills, shortness of breath, chest pain. No further complaints at this time History - Adult longitudinalSmoking status for patients 13 years old or older: Unknown,if ever smokedAllergies:Coded Allergies:No Known Allergies (09/15/23) Review of Systems Free Text ROS NotesFree Text ROS Notes:14 point review of system was conducted and negative except discussed above Objective GeneralVS:Last Documented: Result Date Time Pulse Ox 97 09/14 1307 B/P 110/69 09/14 1307 B/P Mean 82.5 09/14 1307 O2 Delivery Room air 09/14 1307 Temp 98.4 09/14 1307 Pulse 92 09/14 1307 Resp 16 09/14 1307 O2 Flow Rate 2 09/14 0400 PATIENT WEIGHT: Weight (lb): Weight (oz): Weight (kg): 63.636 Medications:Active Meds + DC'd Last 24 HrsFamotidine (PEPCID) 20 MG Q12HR IV Miscellaneous Information (VANCOMYCIN PHARMACY TO DOSE) 1 EACH ASDIR IV (PEND) Vancomycin HCl (Vancomycin HCl) 1,250 MG ONCE ONE IV (DC) Sodium Chloride (0.9% Sodium Chloride) 250 MLCefazolin Sodium (KEFZOL) 1 GM Q8HR IV Sterile Water (WATER FOR INJECTION) 10 MLLactated Ringer's (LACTATED RINGERS) 500 ML .Q6H40M IV Vancomycin HCl (VANCOMYCIN HCL) 1,000 MG ONCE ONE IV (DC) Sodium Chloride (0.9% Sodium Chloride) 250 MLCeftriaxone Sodium (ROCEPHIN) 1,000 MG Q24H IV (DC) Sterile Water (WATER FOR INJECTION) 10 MLDocusate Sodium (COLACE) 100 MG BID PRN PRN PO Hydralazine HCl (APRESOLINE) 10 MG Q6H PRN PRN IV Hydrocodone Bitart/Acetaminophen (NORCO 7.5/325) 1 TAB Q6H PRN PRN PO Ondansetron HCl (ZOFRAN ODT) 4 MG Q4H PRN PRN PO Tramadol HCl (ULTRAM) 50 MG Q6H PRN PRN PO I O:24 hour I O ending at 0700: 09/14 0700 09/13 1900 Intake Total Output Total Balance Patient 63.636 kg Weight Weight Estimated Measurement Method Dietitian nutrition assessmentThe data set between the solid lines has been imported from the dietitian's assessment. BMI Calculated: 24.9Nutrition related diagnosis: Nutrition diagnosis details: Nutrition problem: Nutrition etiology: Nutrition signs and symptoms: Nutrition prescription: Dietitian name: Assessment completed: Physical ExamGeneral appearance: alert, awake, orientedWound/incision: Location:Left medial foot by the first metatarsal: There is a full-thickness ulceration that measures 4 x 2 x 0.2 cm. The base is 80% granular and 20% slough. There is no maggots noted in the wound base. The wound does not probe to bone. Thereis surrounding erythema and warmth. There is no malodor. There is no lymphaticstreaking. There is no crepitusHead/Eyes: clear cornea, EOMI, normocephalicENT: normal ear left, normal ear rightNeck: full range of motion, non-tender, no bruit/NL carotidsCardiovascular: normal capillary refillRespiratory: clear to auscultation, no distress, no tendernessAbdomen: soft, no guarding, no reboundGenitourinary: not indicatedExtremities:Left moves all, Left no evidence of DVTLE vascular pulse assess:Nonpalpable L popliteal, Nonpalpable L posterior tibialis, Nonpalpable L dorsalis pedisCapillary refill: Capillary refill (in seconds): > 5 seconds Left footEdema:pitting Left foot, pitting Left legFoot: swelling, contracture flexion at the knee, left right bkaNeuro/TECHNOLOGY AUDITOR: alert, oriented X 3Lymphatics: axilla normal, inguinal normal, no lymphadenopathyPsychiatry: no hallucinations, normal affect, normal judgment/insight, normal mood ResultsFindings/Data:Recent Impressions:ULTRASOUND - DUP LE ART SHIVA 09/14 0750 Report Impression - Status: SIGNED Entered: 09/15/2023 9956 IMPRESSION:Limited examination with diffuse plaque and extensive monophasicwaveforms throughout the left lower extremity suggesting diffusedisease and possible occlusion of the left peroneal artery. PreviousBKA on the right.Impression By: PrashantNORTHEAST [facility] - Carl Kuo M.D. Diagnosis, Assessment PlanFree Text A P:63-year-old female with a history of osteogenesis imperfecta presents to the hospital with left first metatarsal ischemic ulceration and surrounding cellulitis.The patient is wheelchair-bound. 1. Left foot ischemic ulceration with surrounding cellulitis. There is a concern of underlying osteomyelitis.Wound care: Silver alginate, 4 x 4, paper tape. Recommend daily dressing changes. Recommend clean with normal saline.X-rays orderedDo not get wetElevateRecommend every 2 turns to prevent ulceration.Okay to weight-bear as toleratedAntibiotics as per internal medicine/infectious disease recommendation 2. Lipodermatosclerosis in the presence of concern of peripheral arterial diseaseArterial Dopplers and SUSY reviewed: Concern of stenosis, however the pulses are faintly palpable. This may be due to edema. Recommend continue monitor. If conditions worsen, possible vascular surgery evaluation. I will determine further plans after imaging studies result. Interim, recommendcontinue local wound care and antibiotic therapy. Thank you for the consultationConsultants: burn/wound, podiatry at [address] [facility] #: [id number] OF REPORT [id number]:29:00L.[id number] for patient [id number]:35:45 [facility] 2023-09-15 02:53:00 [id number] [id number]9:53:00 [facility] ([facility])Hospitalist History PhysicalREPORT#:[id number] REPORT STATUS: SignedREPORT INITIALIZATION DATE:09/15/23 TIME:252 PATIENT: FLORY SHAFER UNIT #: [id number]#: [id number] [address] [birth year] AGE: 63 SEX: F ATTEND: Peggy Hutton [facility] AUTHOR: Sravanthi Simms I APRNNPREPT SERVICE DT/TIME: 09/15/23252* ALL edits or amendments must be made on the electronic/computer document * Sravanthi Simms I 09/15/23 0253:History of Present Illness HPIChief complaint:Left foot cellulitis PCP:PCP: No Primary or Family Physician HPI:Patient is a 63-year-old female with a history of osteogenesis imperfecta presenting as a transfer from [facility] for cellulitis of the left leg. Patient presented there with complaints of not feeling well. She hada cast on her leg and had been on for about 3 months from her previous tib-fib fracture. Was removed revealing cellulitis and a gangrenous infection of the foot around the great toe. Patient was transferred here for further treatment and orthopedic surgery consultation.Hx Obtained From Patient, Prior medical records HistorySmoking status for patients 13 years old or older: Unknown,if ever smoked Medication/Allergy-Vaccine HxMedications:Home Medications: Medication Dose/Rte/Freq Days Qty Entered Last Max Daily Dose Reviewed No Known Home Medications Current Hospital Medications:Anti-Infective Agents Sig/Dennis Start time Last Medication Dose Route Stop Time Status Admin Cefazolin Sodium 1 GM Q8HR 09/14 0600 UNV (KEFZOL) IV 09/28 0559 Sterile Water 10 ML (WATER FOR INJECTION) Vancomycin HCl 1,000 MG ONCE ONE 09/14 0445 UNV (VANCOMYCIN HCL) IV 09/14 0744 Sodium Chloride 250 ML (0.9% Sodium Chloride) Ceftriaxone Sodium 1,000 MG Q24H 09/14 0530 DCr (ROCEPHIN) IV 09/28 05 Sterile Water 10 ML (WATER FOR INJECTION) Cardiovascular Drugs Sig/Dennis Start time Last Medication Dose Route Stop Time Status Admin Hydralazine HCl 10 MG Q6H PRN PRN 09/14 0530 AC (APRESOLINE) IV 10/14 05 Central Nervous System Agents Sig/Dennis Start time Last Medication Dose Route Stop Time Status Admin Hydrocodone Bitart/ 1 TAB Q6H PRN PRN 09/14 0530 AC Acetaminophen PO 09/24 05 (NORCO 7.5/325) Tramadol HCl 50 MG Q6H PRN PRN 09/14 0530 AC (ULTRAM) PO 09/24 0529 Electrolytic, Caloric, And Mckinley Sig/Dennis Start time Last Medication Dose Route Stop Time Status Admin Lactated Ringer's 500 ML .Q6H40M 09/14 0545 UNV (LACTATED RINGERS) IV 10/14 0544 Gastrointestinal Drugs Sig/Dennis Start time Last Medication Dose Route Stop Time Status Admin Famotidine 20 MG Q12HR 09/14 1000 AC (PEPCID) IV 10/14 0859 Docusate Sodium 100 MG BID PRN PRN 09/14 0530 AC (COLACE) PO 10/14 0529 Ondansetron HCl 4 MG Q4H PRN PRN 09/14 0530 AC (ZOFRAN ODT) PO 10/14 05 Allergies:Coded Allergies:No Known Allergies (09/15/23) Review of SystemsMusculoskeletal:joint swelling. All systems rev neg: except as marked Objective GeneralVS/I O:Vital Signs: Date Time Temp Pulse Resp B/P B/P Pulse O2 O2 Flow FiO2 Mean Ox Delivery Rate 09/14 0400 98.8 18 96 Nasal 2 cannula 09/14 0400 98 128/58 96 09/14 0300 97 126/58 84 91 09/14 0200 92 137/64 91 09/14 0130 90 123/58 92 09/14 0029 98.5 89 18 137/72 93 97 Room air 24 hour I O ending at 0700: 09/14 0700 09/13 1900 Intake Total Output Total Balance Patient 63.636 kg Weight Weight Estimated Measurement Method PATIENT WEIGHT: Weight (lb): Weight (oz): Weight (kg): 63.636 Medications:Active Meds + DC'd Last 24 HrsFamotidine (PEPCID) 20 MG Q12HR IV Cefazolin Sodium (KEFZOL) 1 GM Q8HR IV (UNV) Sterile Water (WATER FOR INJECTION) 10 MLLactated Ringer's (LACTATED RINGERS) 500 ML .Q6H40M IV Vancomycin HCl (VANCOMYCIN HCL) 1,000 MG ONCE ONE IV (UNV) Sodium Chloride (0.9% Sodium Chloride) 250 MLCeftriaxone Sodium (ROCEPHIN) 1,000 MG Q24H IV (DCr) Sterile Water (WATER FOR INJECTION) 10 MLDocusate Sodium (COLACE) 100 MG BID PRN PRN PO Hydralazine HCl (APRESOLINE) 10 MG Q6H PRN PRN IV Hydrocodone Bitart/Acetaminophen (NORCO 7.5/325) 1 TAB Q6H PRN PRN PO Ondansetron HCl (ZOFRAN ODT) 4 MG Q4H PRN PRN PO Tramadol HCl (ULTRAM) 50 MG Q6H PRN PRN PO ResultsRadiology data:Recent Impressions:ULTRASOUND - DUP LE ART SHIVA 09/14 0750 Report Impression - Status: SIGNED Entered: 09/15/2023 0856 IMPRESSION:Limited examination with diffuse plaque and extensive monophasicwaveforms throughout the left lower extremity suggesting diffusedisease and possible occlusion of the left peroneal artery. PreviousBKA on the right.Impression By: Vlad - Carl Kuo M.D. Results: labs reviewed, vital signs reviewed Free Text Obj NotesFree Text Obj Notes:Focused PE General/Const Awake, Alert, No acute distress Appearance/Presentation Hygiene poor. Respiratory/Chest Breath sounds NL, Breath sounds = bilat Cardiovascular Heart rate NL, Regular rhythm, Heart sounds NL Musculoskeletal: Right AKASee further description under ankle/foot.Left medial foot with wet gangrene noted at the first MTP with surrounding cellulitis/pressure ulcer, purulent drainage, malodorous. Blanching erythema extends to the knee. Patient received clindamycin, morphine, 500 cc normal saline bolus. Skin Warm, Dry Neurologic Oriented X3, Speech NL, No motor deficits Diagnosis, Assessment PlanProblem List/A P: 1. Cellulitis of left leg 2. Gangrene of left foot 3. History of right above knee amputation Orders: Procedure Date/time Status Blood Culture Prior to ABX 09/14 536 Active CULTURE BLOOD 09/14 536 Active MRI LOW EXT W/O CONT LT 09/14 533 Active NPO: Except for Meds 09/14 524 Active PHOSPHOROUS 09/14 513 Active MAGNESIUM 09/14 513 Active LACTIC ACID 09/14 513 Active COMPREHENSIVE METABOLIC PANEL 09/14 513 Active COAGULATION I PROFILE 09/14 513 Active CBC W/AUTO DIFF 09/14 513 Active Provider Consult 09/15 511 Active Consultants: burn/wound, podiatryPlan discussed with: patient, nurseTime spent: Time spent on patient care (minutes): 45 Code Status/Resusc. DiscussionCode status: full code Free Text DxA P NotesFree Text DxA P Notes: 63-year-old female with a history of osteogenesis imperfecta, right AKA who is admitted for: #Left foot cellulitis with gangrene- foot x-ray shows no acute displaced fracture or dislocation identified. Normal marrow density and mild generalized soft tissue swelling.- Vancomycin + cefazolin for empirical MRSA and gram neg coverage respectively- obtain WBC, LA, CMP, Mag and Phos- obtain MRI to r/o osteo and arterial doppler at AM- NPO status until seen by podiatry - volunteer services director and wound care provider consulted, appreciate recs. #Right AKA-[place] still present, according to pt states chani been on for 2 years-wound care provider consulted #H/O Osteogenesis imperfecta- immobility- PT/OT chemical VTE prophylaxis held due to anticipated surgical intervention DVT prophylaxis: SCDs.GI prophylaxis: pepcidDisposition Anticipated: Home with family support. Time Spent on Patient Care, Coordination and Counselin min. Code Status: Full code. Ousmane Samaniego 09/15/23 1808:Attestations Physician AttestationAgree w/findings plan:Appreciate note from NPAgree with the history and physical findingsLab works notedImaging noted as wellFindings were discussed with the PORFIRIO and Staff at 1109 at 1808 RPT #: [id number] OF REPORT HPHistory and physical [id number]:53:00L.[id number] AVAvailable for patient [id number]:09:49 [facility] 2023-09-15 00:47:00 [id number] [id number]/[id number]:47:00 [facility] ([facility])EMERGENCY PROVIDER REPORTREPORT#:[id number] REPORT STATUS: SignedDATE:09/15/23 TIME:46 PATIENT: FLORY SHAFER UNIT #: [id number]#: [id number] [address] [birth year] AGE: 63 SEX: F PCP PHYS: No Primary or Family PhysicianSERVICE AUTHOR: Teagan Carbone MD * ALL edits or amendments must be made on the electronic/computer document * HPI-Extremity Prob Lower GeneralInitial Greet Date/Time 09/15/23 0031 PresentationChief Complaint Leg problem LHx Obtained From Patient, EMS, Prior medical recordsOnset Occurred Unknown Free Text HPI NotesFree Text HPI NotesPatient is a 63-year-old female with a history of osteogenesis imperfecta presenting as a transfer from [facility] for cellulitis of the left leg. Patient presented there with complaints of not feeling well. She hada cast on her leg and had been on for about 3 months from her previous tib-fib fracture. Was removed revealing cellulitis and a gangrenous infection of the foot around the great toe. Patient was transferred here for further treatment and orthopedic surgery consultation. Review of Systems ROS StatementsAll systems rev neg except as marked. Focused Review of SystemsConstitutionalDenies: Chills, Fever. NeurologicDenies: Confusion, Dizziness. Past Medical History - AdultStated Complaint LEFT LEG CELLULITIS, DEEPTISSUE INJURYAllergiesCoded Allergies:No Known Allergies (09/15/23) Home MedicationsReported MedicationsNo Known Home Medications Smoking status for patients 13 years old or older: Unknown,if ever smoked Physical Exam Vital SignsVital SignsFirst Documented: Result Date Time Pulse Ox 97 09/14 0029 B/P 137/72 09/14 0029 B/P Mean 93 09/14 0029 O2 Delivery Room air 09/14 002 Temp 36.9 09/14 28 Pulse 89 09/14 28 Resp 18 09/14 28 Last Documented: Result Date Time Pulse Ox 97 09/14 0029 B/P 137/72 09/14 0029 B/P Mean 93 09/14 0029 O2 Delivery Room air 09/14 002 Temp 36.9 09/14 002 Pulse 89 09/14 0029 Resp 18 09/14 0029 Review of Vital Signs Reviewed Focused PEGeneral/Const General/Const Awake, Alert, No acute distress Appearance/Presentation Hygiene poor. Resp/Chest Respiratory/Chest Breath sounds NL, Breath sounds = bilatCardiovascular Cardiovascular Heart rate NL, Regular rhythm, Heart sounds NLMS Lower Extrem Text/Dict NotesRight AKASee further description under ankle/foot.MS Ankle/Foot Text/Dict NoteLeft medial foot with wet gangrene noted at the first MTP with surrounding cellulitis/pressure ulcer, purulent drainage, malodorous. Blanching erythema extends to the knee. Patient received clindamycin, morphine, 500 cc normal saline bolus.Skin Skin Warm, DryNeurologic Neurologic Oriented X3, Speech NL, No motor deficits Re-Evaluation MDM Free Text MDM NotesFree Text MDM NotesLab work performed at transferring facility collected at 2027 shows chemistries with no significant abnormal findings. CBC shows a hemoglobin of 10.8, hematocrit 34.5. X-ray of the left tib-fib shows comminuted first metatarsal fracture, age-indeterminate mid tibial and fibular fractures. Diffuse generalized osteopenia patient was placed in a wet-to-dry dressing and transferred. Patient Discharge Departure Vital Signs/ConditionVital SignsFirst Documented: Result Date Time Pulse Ox 97 09/14 0029 B/P 137/72 09/14 0029 B/P Mean 93 09/14 0029 O2 Delivery Room air 09/14 28 Temp 36.9 09/14 002 Pulse 89 09/14 0029 Resp 18 09/14 28 Last Documented: Result Date Time Pulse Ox 97 09/14 0029 B/P 137/72 09/14 0029 B/P Mean 93 09/14 0029 O2 Delivery Room air 09/14 28 Temp 36.9 09/14 002 Pulse 89 09/14 0029 Resp 18 09/14 28 All vital signs available at the time of this entry have been reviewed. Clinical ImpressionClinical ImpressionPrimary Impression: Cellulitis of left legSecondary Impressions: Gangrene of left foot Disposition DecisionHospitalize Hosp Physician Name Ousmane Samaniego MD [facility] Physician Hospitalist Request Time 005 Request Date 09/15/23 )( Accepts Hospitalization Yes )( Reason for Hospitalizationcellulitis of left leg )( Accepted Time 53 )( Accepted Date 09/15/23 Call Information will see patient, agrees with eval, agrees with plan Discharge/Care PlanCounseled Regarding Diagnosis, Need for admission(Auto) PrescriptionsCurrent Visit ScriptsNo Known Home Medications at [address] [facility] #: [id number] OF REPORTEDEmergency department dpbzyv8833-96-53N94:47:00L.[id number] ilable for patient pfvrISBUDDLTLYGPYO1631-61-98A13:00:38 HCAPM
[2023-10-24 18:07] LABS: Calcium Oxalate Crystals- Ur Few /HPF (None Seen); Specific Gravity > 1.030 (1.005-1.030); Sqamous Epithelial <5 /HPF (None Seen); Urine Bacteria <20 /HPF (<20); Urine Bilirubin NEGATIVE (Negative); Urine Blood Negative (Negative); Urine Clarity Extremely Turbid (Clear); Urine Color Light-Orange (Yellow); Urine Culture Reflex Order REFLEXED; Urine Glucose NEGATIVE (Negative); Urine Ketones NEGATIVE (Negative); Urine Microscopic Reflex YN ORDER UMIC; Urine Mucus Slight /HPF (None Seen); Urine Nitrite 2+ (Negative); Urine Protein 2+ (Negative); Urine RBC 21-50 /HPF (None Seen); Urine Urobilinogen 1+ (Normal); Urine WBC >50 /HPF (<5); Urine pH 8.5 (5.0-7.0)
[2023-10-24] MEDS ORDERED: NA CHLORIDE 0.9% 0 ML ONE (18:24)
[2023-10-24] MEDS ORDERED: ONDANSETRON 4 MG/2 ML VIAL ONE (18:27)
[2023-10-24] MEDS ORDERED: MORPHINE 4 MG/ML SYR ONE (18:28)
[2023-10-24] MEDS ORDERED: NA CHLORIDE 0.9% 500 ML ONE ×2 (18:28→19:14)
[2023-10-24] MEDS ORDERED: CEFEPIME 1 GM/VIAL ONE (18:28)
[2023-10-24] MEDS ORDERED: NA CHLORIDE 0.9% 100 ML ONE (18:30)
[2023-10-24 18:32] LABS: Absolute Eosinophils 0.1 K/uL (0-0.5); Absolute Lymphocytes (CBC) 1.4 K/uL (0.7-4.9); Absolute Monocytes 0.6 K/uL (0.1-1.3); Absolute Neutrophil 8.5 K/uL (1.8-8.0); Basophils % 0.4 % (0-1.3); Eosinophils % 0.5 % (0-4.4); Hematocrit 33.4 % (36.0-45.0); Hemoglobin 10.5 g/dL (12.0-15.0); Lymphocytes % 13.4 % (15.3-44.8); MCH 21.3 pg (27.0-35.0); MCHC 31.4 g/dL (32.0-36.0); MCV 67.9 fL (80-100); MPV 8.5 fL (7.6-11.3); Monocytes % 5.9 % (3.3-12.3); Neutrophils % 79.8 % (41.7-73.7); Nucleated Red Blood Cells % 0.1 % (0-0); Platelets 244 thou/uL (152-406); RBC Red Blood Cell Count 4.91 M/uL (3.86-4.86); Red Cell Distribution Width 19.7 % (12.1-15.2)
[2023-10-24 18:34] LABS: Blood Morphology Comment NOTED (NOT SEEN); Hypochromasia 1+; Microcytosis 1+; Platelet Estimate ADEQ; White Blood Cell Scan OK (OK)
--- NOTE | 2023-10-24 18:41 | RAD REPORT ---
EXAM DESCRIPTION: RAD - Chest Single View - 10/24/2023 6:33 pm CLINICAL HISTORY: TRAUMA Chest pain. COMPARISON: Chest Single View dated 12/28/2016; Chest Single View dated 12/27/2016; CHEST SINGLE VIEW dated 11/03/2009; CHEST PA AND LAT 2 VIEW dated 02/05/2007 FINDINGS: Portable technique limits examination quality. The left hemidiaphragm appears elevated. The lungs are grossly clear. Cardiac size is likely mildly e nlarged.No fracture visualized.
--- NOTE | 2023-10-24 18:43 | RAD REPORT ---
EXAM DESCRIPTION: RAD - Elbow Right 2 View - 10/24/2023 6:33 pm CLINICAL HISTORY: traum Fall, pain COMPARISON: Elbow Right 2 View dated 12/28/2016; Elbow Right 2 View dated 12/27/2016 FINDINGS: Advanced diffuse osteopenia. Supracondylar region of the humerus demonstrates transverse f racture with mild displacement. The olecranon fracture likely also present.
--- NOTE | 2023-10-24 18:43 | RAD REPORT ---
EXAM DESCRIPTION: RAD - Tib Fib Left - 10/24/2023 6:33 pm CLINICAL HISTORY: trauma Fall, pain COMPARISON: Tib Fib Left dated 04/27/2023 FINDINGS: The bones are very demineralized. Fracture involving the lateral aspect of the proximal ti migel. Tibial plateau laterally likely involved. Fibular neck fracture is also likely present. Fracture oblique in nature of the distal shaft of the tibia and fibula also present. Spiral type fracture of the midshaft of the tibia.
--- NOTE | 2023-10-24 18:49 | RAD REPORT ---
EXAM DESCRIPTION: CT - Head C Spine Cap Wo Con - 10/24/2023 6:35 pm CLINICAL HISTORY: Trauma, head and neck injury. Chest, abdomen and pelvis pain. TRAUMA COMPARISON: No comparisons TECHNIQUE: CT head without contrast. CT cervical spine without contrast with coronal and sagittal reformatted images. CT chest, abdomen and pelvis without contrast with coronal and sagittal reformatted images [facility] scans are performed using dose optimization technique as appropriate and may include automated exposure control or mA/KV adjustment according to patient size. FINDINGS: CT HEAD WITHOUT CONTRAST: No intracranial hemorrhage, hydrocephalus or extra-axial fluid collection. Mild generalized brain atr ophy is present with moderate periventricular and deep white matter chronic microvascular ischemic ch anges. No areas of brain edema or midline shift. The paranasal sinuses and mastoids are clear. The calvarium is intact. CT CERVICAL SPINE WITHOUT CONTRAST: No fracture or subluxation. Significant osteopenia. The dens appears incorporated into the skullbase, variant. The prevertebral soft tissues are normal in thickness. CT CHEST, ABDOMEN, PELVIS WITHOUT CONTRAST: NOTE: Lack of contrast is a significant limitation in the assessment of trauma related findings. Spec ifically, solid organ, vascular and bowel evaluation is significantly limited. The lungs are clear.Trace right pleural fluid. No evidence of intra-abdominal visceral injury, free fluid or free air is seen within the above detai led limitations. Heavy atherosclerosis. Elevated left hemidiaphragm. No pelvic mass or hematoma. The bones are highly osteopenic which limits assessment for fracture. Repeat imaging would be recomme nded if patient has progressive pain indicated particular region. Multiple chronic appearing wedge co mpression fractures are present at the thoracolumbar junction. Grade 2 anterolisthesis of L5 on S1. IMPRESSION: Negative for acute traumatic findings within the above detailed limitations.
[2023-10-24 18:53] LABS: Albumin 2.7 g/dL (3.4-5.0); Albumin/Globulin Ratio 0.8 (1.1-1.8); Anion Gap 6.1 mEq/L (5.0-15.0); Bilirubin Total 1.5 mg/dL (0.2-1.0); Globulin 3.6 g/dL (2.3-3.5); Potassium 3.1 mEq/L (3.5-5.1); Protein, Total 6.3 g/dL (6.4-8.2)
--- NOTE | 2023-10-24 19:06 | ER ---
Nurse's Notes [facility] Name: Flory Shafer Age: 63 yrs Sex: Female : 1960 Arrival Date: 10/24/2023 Time: 16:44 Bed 15 Private MD: Diagnosis: Fall, concussion, right olecranon/humerus fracture, left tib-fib fracture Presentation: 10/23 16:46 Chief complaint: EMS states: toned out to patient home for fall last night - c/o pain ld1 to left leg and right arm. Negative LOC, denies blood thinners. Coronavirus screen: At this time, the client does not indicate any symptoms associated with coronavirus-19. Ebola Screen: No symptoms or risks identified at this time. Risk Assessment: Do you want to hurt yourself or someone else? Patient reports no desire to harm self or others. Onset of symptoms was October 24, 2023. 16:46 Method Of Arrival: [place] [facility] ld1 16:46 Acuity: PA 3 ld1 18:18 Initial Sepsis Screen: Does the patient meet any 2 criteria? No. Patient's initial ld1 sepsis screen is negative. Does the patient have a suspected source of infection? No. Patient's initial sepsis screen is negative. Triage Assessment: 16:47 Pain: Complains of pain in right arm and left leg Pain does not radiate. Pain currently ld1 is 8 out of 10 on a pain scale. Quality of pain is described as throbbing, Pain began suddenly, Is continuous. EENT: No signs and/or symptoms were reported regarding the EENT system. Neuro: Level of Consciousness is awake, alert, obeys commands, Oriented to person, place, time, situation. Cardiovascular: Denies. Cardiovascular: Capillary refill < 3 seconds Patient's skin is warm and dry. Respiratory: Airway is patent Respiratory effort is even, unlabored. GI: Abdomen is round non-distended. : No signs and/or symptoms were reported regarding the genitourinary system. Derm: No signs and/or symptoms reported regarding the dermatologic system. Musculoskeletal: No signs and/or symptoms reported regarding the musculoskeletal system. 18:18 General: Appears in no apparent distress. comfortable, Behavior is calm, cooperative, ld1 appropriate for age. Historical: - Allergies: 16:47 PENICILLINS; ld1 - PMHx: 16:47 degenerative bone disease; Degenerative disc disease; osteoarthritis; ld1 16:48 RBKA; ld1 - Immunization history:: Adult Immunizations up to date. - Infectious Disease History:: Denies. - Social history:: Smoking status: Patient denies any tobacco usage or history of. Patient/guardian denies using alcohol. Screenin:48 [facility] ED Fall Risk Assessment (Adult) History of falling in the last 3 months, ld1 including since admission Yes- single mechanical fall (1 pt) Confusion or Disorientation No (0 pts). Abuse screen: Denies threats or abuse. Denies injuries from another. Nutritional screening: No deficits noted. Tuberculosis screening: No symptoms or risk factors identified. Assessment: 16:49 Reassessment: See triage assessment. ld1 17:30 Reassessment: No changes from previously documented assessment. Patient and/or family ld1 updated on plan of care and expected duration. Pain level reassessed. 18:00 Reassessment: Pt C/O pain to left leg and right arm. Notified ERP. See [facility] for orders. ld1 18:15 Reassessment: Kyleigh Downing (sister): [phone]. kn 18:38 Reassessment: No changes from previously documented assessment. Patient and/or family ld1 updated on plan of care and expected duration. Pain level reassessed. Patient states symptoms have not improved. 19:10 General: Appears in no apparent distress. comfortable, Behavior is calm, cooperative. jw7 General: PT Resting with eyes closed, RR 15, O2 100% on 2L via N/C.. Cardiovascular: Capillary refill < 3 seconds Clubbing of nail beds is absent JVD is absent Patient's skin is warm and dry. Respiratory: Airway is patent Trachea midline Respiratory effort is even, unlabored, Respiratory pattern is regular, symmetrical. 20:00 Reassessment: Patient appears in no apparent distress at this time. Patient and/or jw7 family updated on plan of care and expected duration. Pain level reassessed. Patient is alert, oriented x 3, equal unlabored respirations, skin warm/dry/pink. c/o pain to right arm/elbow and left leg, rated 4/10. 20:45 General: Report Given to [facility]. . jw7 21:00 Reassessment: Patient appears in no apparent distress at this time. No changes from jw7 previously documented assessment. Patient and/or family updated on plan of care and expected duration. Pain level reassessed. Patient is alert, oriented x 3, equal unlabored respirations, skin warm/dry/pink. 21:00 Neuro: Level of Consciousness is awake, alert, obeys commands, Oriented to person, jw7 place, time, situation. 21:00 Cardiovascular: Pulses are all present. are 2+ in left leg and right arm. jw7 Vital Signs: 16:47 BP 104 / 55; Pulse 87; Resp 20; Pulse Ox 95% ; Weight 70.31 kg; Height 5 ft. 1 in. ; kn 17:00 BP 114 / 66; Pulse 86; Resp 20; Pulse Ox 94% ; kn 17:30 BP 105 / 57; Pulse 87; Resp 20; Pulse Ox 95% ; kn 18:49 BP 113 / 66; Pulse 83; Resp 17; Pulse Ox 96% on R/A; ld1 19:00 BP 115 / 72; Pulse 87; Resp 15 S; Pulse Ox 100% on 2 lpm NC; jw7 20:00 BP 142 / 73; Pulse 86; Resp 16 S; Pulse Ox 100% on 2 lpm NC; jw7 21:00 BP 128 / 75; Pulse 86; Resp 14 S; Pulse Ox 100% on R/A; jw7 16:47 Body Mass Index 29.29 (70.31 kg, 154.94 cm) ED Course: 16:45 Patient arrived in ED. ld1 16:47 Triage completed. ld1 16:47 Lamine Schultz MD is Attending Physician. sp3 16:47 Arm band placed on right wrist. ld1 16:48 Patient has correct armband on for positive identification. Placed in gown. Bed in low ld1 position. Call light in reach. Side rails up X2. lunchroom monitor on. Pulse ox on. NIBP on. Door closed. Noise minimized. Warm blanket given. 16:49 Carol Brantley, SID is Primary Nurse. ld1 17:45 Saucedo cath inserted, using sterile technique, 16 Fr., by pr, balloon inflated, to kc6 gravity drainage, clamped. returned cloudy urine. Patient tolerated well. 18:04 xray at bedside. kn 18:16 Lactate w/ 2H reflex if indic. Sent. ld1 18:16 CBC with Diff Sent. ld1 18:16 Type And Screen Sent. ld1 18:16 CMP Sent. ld1 18:16 Assisted provider with central line placement. Set up central line tray. Triple lumen ld1 line placed in left internal jugular. Line placed by Lamine Schultz MD Placement verified by CXR, blood return, Dressed with Tegaderm, Blood was collected. Patient tolerated well. Before procedure, did Practitioner(s) obtain informed consent? Yes. Patient \T\ family education about procedure, CLABSI prevention and S/S of infection? Yes. Time-out/Briefing performed prior to start of procedure? Yes. Was handwashing/sanitizing done immediately prior to procedure? Yes. Was patient positioned to in a way to prevent air embolism? Yes. Was procedure site sterilized? Yes, with Was the site allowed to dry? Yes. During the procedure, did the Practitioner(s) maintain a sterile field? Yes. Were unused ports clamped during insertion? Yes. Was a 2nd qualified MD obtained after 3 unsuccessful insertion attempts? Yes. Was blood aspirated from each lumen? Yes. After the procedure, did the Practitioner(s) clean the site and apply a sterile dressing? Yes. 18:26 Patient moved to MA via stretcher. kn 18:35 XRAY Chest (1 view) In Process Unspecified. EDMS 18:35 Elbow Right 2 View XRAY In Process Unspecified. EDMS 18:35 Tib Fib Left XRAY In Process Unspecified. EDMS 18:35 Head C Spine Cap Wo Con In Process Unspecified. EDMS 18:38 Blood Culture Adult (2) Sent. ld1 18:38 Lactate w/ 2H reflex if indic. Sent. ld1 18:42 Patient moved back from CT. kn 19:12 Initiated transfer to [facility], spoke with Mary Parson and she stated wm she would call back. 19:35 Initiated transfer to [facility], spoke with Solis Parson, immediately wm connected for Doc to Doc. 19:42 Pt accepted for transfer to [facility] ER by Jareth Hernandes per Mary Parson. wm 20:08 EMS will transport Pt with an ETA \T\ 2029. wm 20:30 Provided Education on: Need for splints for right arm and left leg. . jw7 20:51 Orthoglass splint: Posterior short lleg splint applied on left leg. rv1 20:52 Orthoglass splint: Sugar tong splint applied on right arm. rv1 21:07 Patient transferred, IV remains in place. jw7 Administered Medications: 18:46 Drug: morphine IVP or IV 4 mg IVP once over 4 mins Route: IVP; Infused Over: 4 mins; kn Site: left jugular; 19:24 Follow up: Response: No adverse reaction; Marked relief of symptoms; Pain is decreased jw7 18:46 Drug: Ondansetron IVP 4 mg IVP once; over 2 minutes Route: IVP; Site: left jugular; kn 19:24 Follow up: Response: No adverse reaction; Marked relief of symptoms; Nausea is decreasedjw7 18:47 Drug: NS 0.9% IV 500 ml IV at bolus once Route: IV; Rate: bolus; Site: left jugular; kn 19:25 Follow up: Response: No adverse reaction; IV Status: Completed infusion; IV Intake: jw7 500ml 18:47 Drug: Cefepime IVPB 1 grams IVPB at 200 ml/hr once over 30 mins; (mix in NS 100 mL) kn Route: IVPB; Rate: 200 ml/hr; Infused Over: 30 mins; Site: left jugular; 19:24 Follow up: Response: No adverse reaction; IV Status: Completed infusion; IV Intake: jw7 100ml 19:24 Drug: NS 0.9% IV 500 ml IV at bolus once Route: IV; Rate: bolus; Site: left subclavian; jw7 21:08 Follow up: Response: No adverse reaction; IV Status: Completed infusion; IV Intake: jw7 500ml Medication: 21:05 VIS not applicable for this client. jw7 Intake: 19:24 IV: 100ml; Total: 100ml. jw7 19:25 IV: 500ml; Total: 600ml. jw7 21:08 IV: 500ml; Total: 1100ml. jw7 Outcome: 19:06 ER care complete, transfer ordered by MD. armstrong 21:07 Transferred by ground EMS to [facility], jw7 21:07 Condition: stable 21:07 Instructed on the need for transfer, Demonstrated understanding of instructions, 21:11 Patient left the ED. jw7 Signatures: Dis[facility] Carol Brantley RN RN ld1 Sherita Cardenas Lamine Schultz MD MD sp3 Mady Valdovinos, RN RN jw7 Tari Vazquez RN RN kc6 Terri Thurston rv1 HALINA ROQUE, SID RN kn Corrections: (The following items were deleted from the chart) 18:05 18:05 Saucedo cath inserted, using sterile technique, kn kn 18:16 18:16 BLOOD CULTURE*+BA.LAB.BRZ drawn and sent. ld1 EDMS 18:19 16:47 BP 104 / 55; Pulse 87bpm; Resp 20bpm; Pulse Ox 95%; kn kn 19:48 19:35 Initiated transfer to [facility], spoke with wm Jaspal immediately connected for Doc to Doc.
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
[2023-10-25 09:39] VITALS: BP 128/75; O2SAT 100
== END 2023-10-24 21:11 | disposition short-term general hospital (02) ==
LOC: ER 16:44
PROC: 05H633Z Insertion of Infusion Device into Left Subclavian Vein, Percutaneous Approach (ICD-10-PCS; principal; 2023-10-24)
PROC: 2W3RX1Z Immobilization of Left Lower Leg using Splint (ICD-10-PCS; 2023-10-24)
PROC: 2W3AX1Z Immobilization of Right Upper Arm using Splint (ICD-10-PCS; 2023-10-24)
DX: S06.0X0A Concussion without loss of consciousness, initial encounter (principal); S52.021A Displaced fracture of olecranon process without intraarticular extension of right ulna, initial encounter for closed fracture; S42.301A Unspecified fracture of shaft of humerus, right arm, initial encounter for closed fracture; S82.202A Unspecified fracture of shaft of left tibia, initial encounter for closed fracture; S82.402A Unspecified fracture of shaft of left fibula, initial encounter for closed fracture; W18.30XA Fall on same level, unspecified, initial encounter; Z88.0 Allergy status to penicillin; Z89.511 Acquired absence of right leg below knee
CPT/HCPCS: 87040 ×2; 87088; 85025; 81001; 87086; 36415; 86900; 86850; 82550; 86901; 83605; 80053; 70450; 71250; 72125; 71045; 73070; 73590; 36556; 29515; 29105; J2405; J7040 ×2; J0692

== ENCOUNTER 2023-12-18 22:57 | Inpatient (IN) | payer OTHER ==
[2023-12-18] MEDS ORDERED: ACETAMINOPHEN 500 MG TAB ONE (23:13)
[2023-12-18] MEDS ORDERED: ONDANSETRON 4 MG/2 ML VIAL ONE (23:13)
[2023-12-18] MEDS ORDERED: VANCOMYCIN 1 GM/VIAL ONE (23:13)
[2023-12-18] MEDS ORDERED: NA CHLORIDE 0.9% 250 ML ONE (23:14)
[2023-12-18] MEDS ORDERED: MORPHINE 2 MG/ML SYR ONE (23:14)
[2023-12-18] MEDS ORDERED: NA CHLORIDE 0.9% 0 ML ONE (23:14)
[2023-12-18] MEDS ORDERED: PIPERACIL/TAZO 3.375 GM VIAL IV ONE (23:15)
[2023-12-18] MEDS ORDERED: CEFAZOLIN SODIUM 1 GM/VIAL ONE (23:54)
[2023-12-18] MEDS ORDERED: NA CHLORIDE 0.9% 100 ML ONE (23:54)
[2023-12-19 00:04] LABS: Absolute Lymphocytes (CBC) 1.6 K/uL (0.7-4.9); Absolute Monocytes 0.5 K/uL (0.1-1.3); Absolute Neutrophil 4.7 K/uL (1.8-8.0); Basophils % 0.5 % (0-1.3); Eosinophils % 0.6 % (0-4.4); Hematocrit 34.2 % (36.0-45.0); Hemoglobin 10.9 g/dL (12.0-15.0); Lymphocytes % 23.7 % (15.3-44.8); MCH 23.6 pg (27.0-35.0); MCHC 31.8 g/dL (32.0-36.0); MCV 74.2 fL (80-100); MPV 8.5 fL (7.6-11.3); Monocytes % 7.8 % (3.3-12.3); Neutrophils % 67.4 % (41.7-73.7); Platelets 236 thou/uL (152-406); RBC Red Blood Cell Count 4.61 M/uL (3.86-4.86); Red Cell Distribution Width 19.6 % (12.1-15.2)
[2023-12-19 00:05] LABS: PT Prothrombin Time 13.6 SECONDS (9.5-12.5); Protime INR 1.24
[2023-12-19 00:32] LABS: Albumin 2.7 g/dL (3.4-5.0); Albumin/Globulin Ratio 0.7 (1.1-1.8); Anion Gap 7.4 mEq/L (5.0-15.0); Bilirubin Total 0.4 mg/dL (0.2-1.0); Globulin 3.8 g/dL (2.3-3.5); Protein, Total 6.5 g/dL (6.4-8.2)
[2023-12-19 00:33] LABS: Potassium 3.4 mEq/L (3.5-5.1)
--- NOTE | 2023-12-19 00:54 | EDPHYS ---
Physician Documentation [facility] Name: Flory Shafer Age: 63 yrs Sex: Female : 1960 Arrival Date: 12/18/2023 Time: 22:57 Bed 6 Private MD: ED Physician Larry Gage HPI: 12/17 22:59 This 63 yrs old Female presents to ER via Unassigned with complaints of Fall sp4 Injury, Arm Pain. 12/18 03:53 61-year-old female with history of osteogenesis imperfecta multiple prior fractures sp4 including right humerus fracture also right above-knee amputation, left chronic tibial fibula fracture and history of left femur repair, presents with complaint of pain left lower extremity also pain the redness of right upper extremity also elevated poor personal hygiene. . 03:54 Patient was reportedly found at some friend's house. Patient is not taking care of sp4 herself she is incapacitated with history of right above-knee amputation and history of chronic homelessness poor socioeconomic situation. Patient states she has history of osteogenesis imperfecta with multiple prior fractures. Recent splint application of the right lower extremity. On arrival patient appears soiled in feces with right above-knee amputation and left lower extremity splint which is extremely soiled and human urine and feces. . Historical: - Allergies: 12/17 23:02 PENICILLINS; bm8 - Home Meds: 23:02 Unable to obtain [Active]; bm8 - PMHx: 23:02 osteoarthritis; Degenerative disc disease; degenerative bone disease; bm8 - Immunization history:: Adult Immunizations up to date. - Infectious Disease History:: Denies. - Social history:: Smoking status: Patient reports the use of cigarette tobacco products, smokes one-half pack cigarettes per day. - Family history:: not pertinent. ROS: 12/18 03:55 Constitutional: Negative for fever, chills, and weight loss, positive left lower sp4 extremity pain and the redness and tenderness. Positive right upper extremity pain redness and tenderness. All other systems are negative, Exam: 03:55 Constitutional: Patient is ill-appearing chronically debilitated female, signs of sp4 chronic immobility, chronically disabled, physical deconditioning, very poor personal hygiene, soiled in fecal matter. Emotional upset on arrival irritable, poorly cooperative with exam. There is right above-knee amputation which is chronic, chronic right upper arm deformity, chronic appearing left lower extremity deformity with left lower extremity fiberglass splint that is contaminated with human fecal matter. Head/Face: Normocephalic, atraumatic. Eyes: Pupils equal round and reactive to light, extra-ocular motions intact. Lids and lashes normal. Conjunctiva and sclera are not injected. Cornea within normal limits. Periorbital areas with no swelling, redness, or edema. ENT: Nares patent. No nasal discharge, no septal abnormalities noted. Tympanic membranes are normal and external auditory canals are clear. Oropharynx with no redness, swelling, or masses, exudates, or evidence of obstruction, uvula midline. Mucous membranes moist. Neck: Trachea midline, no thyromegaly or masses palpated, and no cervical lymphadenopathy. Supple, full range of motion without nuchal rigidity, or vertebral point tenderness. Chest/axilla: Normal chest wall appearance and motion. Nontender with no deformity. No lesions are appreciated. Cardiovascular: Regular rate and rhythm with a normal S1 and S2. No gallops, murmurs, or rubs. Normal PMI, no JVD. No pulse deficits. Respiratory: Lungs have equal breath sounds bilaterally, clear to auscultation and percussion. No rales, rhonchi or wheezes noted. No increased work of breathing, no retractions or nasal flaring. Abdomen/GI: Soft, with normal bowel sounds. No distension or tympany. No guarding or rebound. No evidence of tenderness throughout. Back: No spinal tenderness. No costovertebral tenderness. Chronic appearing moderate to severe scoliosis. Female : Normal external genitalia. Female mold chipper present for exam. Skin: Warm, dry with normal turgor. Normal color with no rashes, Poor hygiene, left lower extremity has macerated skin secondary to a wet and contaminated left lower extremity fiberglass splint. There is left lower extremity cellulitic changes. MS/ Extremity: Pulses equal, no cyanosis. Neurovascular intact. Chronic right above-knee amputation, multiple arthritic deformities, chronic appearing multiple joint deformities, stigmata of chronic bony disease likely osteogenesis imperfecta. Neuro: Awake and alert, GCS 15, oriented to person, place, time, and situation. Cranial nerves II-XII grossly intact. Psych: Awake, alert, with orientation to person, place . Poorly cooperative with exam grossly no new neurologic deficits. Vital Signs: 12/17 23:00 BP 135 / 73; Pulse 76; Resp 18; Temp 97.6; Pulse Ox 96% on R/A; Weight 65.77 kg; Height bm8 04 ft. 10 in. ; Pain 04/17; 12/18 01:40 BP 106 / 63; Pulse 97; Resp 18; Temp 97.6; Pulse Ox 97% ; Pain 0/10; bm8 02:36 BP 99 / 57; Pulse 95; Resp 18; Temp 98; Pulse Ox 97% on 2 lpm NC; Pain 0/10; bm8 12/17 23:00 Body Mass Index 30.30 (65.77 kg, 147.32 cm) bm8 12/17 23:00 Pain Scale: Adult bm8 12/18 01:40 Pain Scale: Adult bm8 02:36 Pain Scale: Adult bm8 [place] Coma Score: 01:40 Eye Response: spontaneous(4). Motor Response: obeys commands(6). Verbal Response: bm8 oriented(5). Total: 15. 03:55 Eye Response: spontaneous(4). Motor Response: obeys commands(6). Verbal Response: sp4 oriented(5). Total: 15. MDM: 00:44 Patient medically screened. sp4 03:49 ED course: EXAM: XR Chest, 1 View CLINICAL HISTORY: The patient is 63 years old and is sp4 Female; SIRS TECHNIQUE: Frontal view of the chest. COMPARISON: No relevant prior studies available. FINDINGS: LUNGS: Unremarkable. No consolidation. PLEURAL SPACE: Unremarkable. No pneumothorax. HEART: Unremarkable. No cardiomegaly. MEDIASTINUM: Unremarkable. Normal mediastinal contour. BONES/JOINTS: Unremarkable. No acute fracture. UPPER ABDOMEN: Elevation of left hemidiaphragm is present. IMPRESSION: No acute cardiopulmonary process. . ED course: EXAMINATION: XR TIBIA FIBULA LEFT INDICATION: Female, 63 years old, leg pain TECHNIQUE: 3 views COMPARISON(S): None available. Reports of prior exams from 10/24/2023 and 09/14/2023. FINDINGS: Severe osteopenia limits assessment. Evidence of an acute comminuted tibial diaphyseal fracture with mild fragment displacement and angulation. Age-indeterminate mid diaphyseal fibular fracture. Severe chronic deformities of the knee, ankle, and partially assessed hind foot. Evidence of prior healed fractures of the distal femur, proximal and distal tibia. Partially visualized distal femoral internal fixation hardware. Diffuse nonfocal soft tissue prominence. IMPRESSION: Extremely limited exam, particularly in the absence of available prior imaging. Chronic and additional age-indeterminate fractures of the tibia, described on comparison reports in similar appearance to the current exam. Additionally, severe diffuse osteopenia and extensive chronic deformities further limit assessment.. ED course: Report from prior visits - EXAM DESCRIPTION: CT - Head C Spine Cap Wo Con - 10/24/2023 6:35 pm CLINICAL HISTORY: Trauma, head and neck injury. Chest, abdomen and pelvis pain. TRAUMA COMPARISON: No comparisons TECHNIQUE: CT head without contrast. CT cervical spine without contrast with coronal and sagittal reformatted images. CT chest, abdomen and pelvis without contrast with coronal and sagittal reformatted images of the spine. All CT scans are performed using dose optimization technique as appropriate and may include automated exposure control or mA/KV adjustment according to patient size. FINDINGS: CT HEAD WITHOUT CONTRAST: No intracranial hemorrhage, hydrocephalus or extra-axial fluid collection. Mild generalized brain atrophy is present with moderate periventricular and deep white matter chronic microvascular ischemic changes. No areas of brain edema or midline shift. The paranasal sinuses and mastoids are clear. The calvarium is intact. CT CERVICAL SPINE WITHOUT CONTRAST: No fracture or subluxation. Significant osteopenia. The dens appears incorporated into the skullbase, variant. The prevertebral soft tissues are normal in thickness. CT CHEST, ABDOMEN, PELVIS WITHOUT CONTRAST: NOTE: Lack of contrast is a significant limitation in the assessment of trauma related findings. Specifically, solid organ, vascular and bowel evaluation is significantly limited. The lungs are clear.Trace right pleural fluid. Date: 10/24/2023 4:49 PM No evidence of intra-abdominal visceral injury, free fluid or free air is seen within the above detailed limitations. Heavy atherosclerosis. Elevated left hemidiaphragm. No pelvic mass or hematoma. The bones are highly osteopenic which limits assessment for fracture. Repeat imaging would be recommended if patient has progressive pain indicated particular region. Multiple chronic appearing wedge compression fractures are present at the thoracolumbar junction. Grade 2 anterolisthesis of L5 on S1. IMPRESSION: Negative for acute traumatic findings within the above detailed limitations. . 04:01 Differential diagnosis: abrasion, closed head injury, contusion, multiple trauma, sp4 sprain, strain, Cellulitis. Data reviewed: vital signs, nurses notes, EMS record, old medical records, lab test result(s), radiologic studies, plain films. Consideration of Admission/Observation Patient was admitted/placed on observation. Escalation of care including admission/observation considered. Management of patient was discussed with the following: Hospitalist: Aden RAMOS . ED course: Heparinization presented in poor condition secondary to homelessness poor socioeconomic situation very poor personal hygiene. Patient literally had to be decontaminated and wiped down with bed wipes. Left lower extremity was cleaned with sanitary wipes and we have applied left lower extremity Ortho boot. Patient has macerated left lower extremity skin secondary to heavy contamination by human feces and urine that has apparently leaked into the left lower extremity fiberglass splint. During examination left lower extremity fiberglass splint was removed left lower extremity was cleaned heavily and then Ortho boot was placed. Patient at this time warrants admission for management of left lower extremity cellulitis also there are some cellulitic changes on the right forearm. Patient probably warrants social work consult while in inpatient. . 12/17 23:00 Order name: Blood Culture Adult (2) [facility] 12/17 23:00 Order name: CBC with Diff; Complete Time: 00:44 [facility] 12/17 23:00 Order name: CMP; Complete Time: 00:44 [facility] 12/17 23:00 Order name: Lactate w/ 2H reflex if indic.; Complete Time: 00:44 [facility] 12/17 23:00 Order name: Protime (+inr); Complete Time: 00:44 [facility] 12/17 23:00 Order name: Ptt, Activated; Complete Time: 00:44 [facility] 12/17 23:00 Order name: Urinalysis w/ reflexes [facility] 12/18 01:21 Order name: Urinalysis w/ reflexes [facility] 12/18 01:21 Order name: CBC with Automated Diff [facility] 12/18 01:21 Order name: CBC with Automated Diff [facility] 12/18 01:21 Order name: Comprehensive Metabolic Panel [facility] 12/18 01:21 Order name: Comprehensive Metabolic Panel [facility] 12/18 02:33 Order name: Ghost Lactate-NO COLLECT Timer [facility] 12/17 23:00 Order name: Chest Single View XRAY [facility] 12/17 23:01 Order name: Forearm Right XRAY [facility] 12/17 23:02 Order name: Tib Fib Left XRAY [facility] 12/17 23:00 Order name: EKG; Complete Time: 23:00 4 12/18 01:21 Order name: Physical Therapy Consult [facility]CT 12/17 23:00 Order name: Accucheck; Complete Time: 02:30 [facility] 12/17 23:00 Order name: Cardiac monitoring; Complete Time: 00:04 [facility] 12/17 23:00 Order name: EKG - Nurse/Tech; Complete Time: 00:04 [facility] 12/17 23:00 Order name: IV Saline Lock - Large Bore; Complete Time: 00:04 [facility] 12/17 23:00 Order name: Labs collected and sent; Complete Time: 00:04 [facility] 12/17 23:00 Order name: O2 Per Protocol; Complete Time: 00:04 [facility] 12/17 23:00 Order name: O2 Sat Monitoring; Complete Time: 00:04 [facility] 12/17 23:00 Order name: Vital Signs; Complete Time: 00:04 [facility] 12/18 00:52 Order name: Orthopedic shoe: left lower leg Ortho boot small size ; Complete Time: :37sp4 Administered Medications: 00:03 Drug: morphine IVP or IV 2 mg IVP once over 4 mins Route: IVP; Infused Over: 4 mins; bm8 Site: left upper arm; 01:37 Follow up: Response: No adverse reaction bm8 00:03 Drug: Ondansetron IVP 4 mg IVP once; over 2 minutes Route: IVP; Site: left upper arm; bm8 01:37 Follow up: Response: No adverse reaction bm8 00:03 Drug: ceFAZolin IVPB 1 grams 50 ml IVPB once over 30 mins Volume: 50 ml; Route: IVPB; bm8 Infused Over: 30 mins; Site: left upper arm; 01:37 Follow up: Response: No adverse reaction; IV Status: Completed infusion; IV Intake: bm8 100ml 00:04 Drug: Acetaminophen PO 1000 mg PO once Route: PO; bm8 01:38 Follow up: Response: No adverse reaction bm8 00:04 Not Given (md [place]): piperacillin-tazobactam3.375 grams IVPB once over 60 mins; bm8 (mix in NS 100 mL) 01:02 Drug: Diazepam IVP 2 mg IVP once Route: IVP; Site: left antecubital; bm8 01:37 Follow up: Response: No adverse reaction bm8 01:03 Drug: morphine IVP or IV 2 mg IVP once over 4 mins Route: IVP; Infused Over: 4 mins; bm8 Site: left antecubital; 01:37 Follow up: Response: No adverse reaction bm8 01:37 Drug: vancoMYCIN IVPB 1 grams IVPB once over 2 hrs Route: IVPB; Infused Over: 2 hrs; bm8 Site: left upper arm; 02:29 Follow up: Response: No adverse reaction; IV Status: Completed infusion; IV Intake: bm8 250ml Disposition Summary: 12/19/23 00:54 Hospitalization Ordered Notes: Hospitalization Status: Inpatient Admission sp4 Provider: Pradeep Samaniego Location: Telemetry/MedSurg (Inpatient) sp4 Condition: Stable sp4 Problem: new sp4 Symptoms: have improved sp4 Bed/Room Type: Standard sp4 Room Assignment: 231(12/19/23 01:51) rv1 Diagnosis - Cellulitis of left lower limb sp4 - Cellulitis of right upper limb sp4 - Left tibia-fibula fracture, osteoporosis, osteogenesis imperfecta, complications of sp4 immobility Forms: - Medication Reconciliation Form sp4 - SBAR form sp4 - Leadership Thank You Letter sp4 Signatures: Dispatcher [employer] Terri Golden rv1 Larry Gage MD MD sp4 James Lantigua RN RN bm8 Corrections: (The following items were deleted from the chart) 12/17 23:03 23:02 PMHx: RBKA; bm8 bm8 12/18 01:51 00:54 sp4 rv1
--- NOTE | 2023-12-19 00:54 | ER ---
Nurse's Notes [facility] Name: Flory Shafer Age: 63 yrs Sex: Female : 1960 Arrival Date: 12/18/2023 Time: 22:57 Bed 6 Private MD: Diagnosis: Cellulitis of left lower limb;Cellulitis of right upper limb;Left tibia-fibula fracture, osteoporosis, osteogenesis imperfecta, complications of immobility Presentation: 12/17 23:00 Chief complaint: Patient states: I fell out of my wheelchair around 1830 tonight, my bm8 right arm hurts and so does my left leg. Coronavirus screen: At this time, the client does not indicate any symptoms associated with coronavirus-19. Ebola Screen: Patient negative for fever greater than or equal to 101.5 degrees Fahrenheit, and additional compatible Ebola Virus Disease symptoms Patient denies exposure to infectious person. Patient denies travel to an Ebola-affected area in the 21 days before illness onset. No symptoms or risks identified at this time. Initial Sepsis Screen: Does the patient meet any 2 criteria? No. Patient's initial sepsis screen is negative. Does the patient have a suspected source of infection? No. Patient's initial sepsis screen is negative. Risk Assessment: Do you want to hurt yourself or someone else? Patient reports no desire to harm self or others. Onset of symptoms was December 18, 2023 at 18:30. 23:00 Method Of Arrival: EMS: [facility] bm8 23:00 Acuity: PA 3 bm8 Triage Assessment: 23:02 General: Appears in no apparent distress. uncomfortable, Behavior is calm, cooperative, bm8 appropriate for age. Pain: Complains of pain in right arm and left leg Pain does not radiate. Pain currently is 10 out of 10 on a pain scale. EENT: No deficits noted. No signs and/or symptoms were reported regarding the EENT system. Neuro: No deficits noted. Level of Consciousness is awake, alert, obeys commands, Oriented to person, place, time, situation. Cardiovascular: Denies chest pain, shortness of breath, Heart tones S1 S2 present. Respiratory: Airway is patent Trachea midline Respiratory effort is even, unlabored, Respiratory pattern is regular, symmetrical. GI: No deficits noted. No signs and/or symptoms were reported involving the gastrointestinal system. : No deficits noted. No signs and/or symptoms were reported regarding the genitourinary system. Derm: No deficits noted. No signs and/or symptoms reported regarding the dermatologic system. Musculoskeletal: Range of motion: limited in left knee and right elbow Swelling present in right arm and left leg. Historical: - Allergies: 23:02 PENICILLINS; bm8 - Home Meds: 23:02 Unable to obtain [Active]; bm8 - PMHx: 23:02 osteoarthritis; Degenerative disc disease; degenerative bone disease; bm8 - Immunization history:: Adult Immunizations up to date. - Infectious Disease History:: Denies. - Social history:: Smoking status: Patient reports the use of cigarette tobacco products, smokes one-half pack cigarettes per day. - Family history:: not pertinent. Screenin:06 [facility] ED Fall Risk Assessment (Adult) History of falling in the last 3 months, bm8 including since admission Yes- single mechanical fall (1 pt) Confusion or Disorientation No (0 pts) Intoxicated or Sedated No (0 pts) Impaired Gait Yes (1 pt) Mobility Assist Device Used Yes (1 pt) Altered Elimination No (0 pt) Score/Fall Risk Level 3 or more points = High Risk Oriented to surroundings, Maintained a safe environment, Educated pt \T\ family on fall prevention, incl call for assistance when getting out of bed, Assessed \T\ reinforced patient's understanding of fall precautions. Abuse screen: Denies threats or abuse. Nutritional screening: No deficits noted. Tuberculosis screening: No symptoms or risk factors identified. Assessment: 23:06 Reassessment: see triage note. bm8 12/18 01:40 Reassessment: Patient appears in no apparent distress at this time. Patient and/or bm8 family updated on plan of care and expected duration. Pain level reassessed. Patient states feeling better. General: Appears in no apparent distress. comfortable, Behavior is calm, cooperative, drowsy. Pain: Complains of pain in right arm and left leg. Neuro: No deficits noted. Level of Consciousness is awake, alert, obeys commands, Oriented to person, place, time, situation, Appropriate for age. Cardiovascular: Denies chest pain, Capillary refill < 3 seconds Patient's skin is warm and dry. Respiratory: No deficits noted. Airway is patent Trachea midline Respiratory effort is even, unlabored, Respiratory pattern is regular, symmetrical, placed pt on 2l nc for dropping 02sats, pt responded well. Derm: Skin is intact, Skin is moist, Skin is pale, Skin temperature is warm. 02:35 Reassessment: Patient appears in no apparent distress at this time. No changes from bm8 previously documented assessment. Patient and/or family updated on plan of care and expected duration. Pain level reassessed. Vital Signs: 12/17 23:00 BP 135 / 73; Pulse 76; Resp 18; Temp 97.6; Pulse Ox 96% on R/A; Weight 65.77 kg; Height bm8 04 ft. 10 in. ; Pain 10; 12/18 01:40 BP 106 / 63; Pulse 97; Resp 18; Temp 97.6; Pulse Ox 97% ; Pain 0/10; bm8 02:36 BP 99 / 57; Pulse 95; Resp 18; Temp 98; Pulse Ox 97% on 2 lpm NC; Pain 0/10; bm8 12/17 23:00 Body Mass Index 30.30 (65.77 kg, 147.32 cm) bm8 12/17 23:00 Pain Scale: Adult bm8 12/18 01:40 Pain Scale: Adult bm8 02:36 Pain Scale: Adult bm8 [place] Coma Score: 01:40 Eye Response: spontaneous(4). Motor Response: obeys commands(6). Verbal Response: bm8 oriented(5). Total: 15. 03:55 Eye Response: spontaneous(4). Motor Response: obeys commands(6). Verbal Response: sp4 oriented(5). Total: 15. ED Course: 12/17 22:57 Patient arrived in ED. jj6 22:59 Larry Gage MD is Attending Physician. sp4 22:59 James Lantigua RN is Primary Nurse. bm8 23:02 Triage completed. bm8 23:02 Arm band placed on right wrist. bm8 23:06 Patient has correct armband on for positive identification. Bed in low position. Side bm8 rails up X 1. Side rails up X2. Client placed on continuous cardiac and pulse oximetry monitoring. NIBP monitoring applied. cafeteria monitor on. Pulse ox on. NIBP on. Door closed. Noise minimized. Visitors limited. Warm blanket given. Verbal reassurance given. pt given bed bath, fresh clothes and linen. 23:06 No provider procedures requiring assistance completed. bm8 12/18 00:04 Initial lab(s) drawn, by me, sent to lab. EKG done, by ED staff, reviewed by Larry Gage MD X-ray(s) taken. Inserted saline lock: 18 gauge in left upper arm, using aseptic technique. Blood collected. 00:35 Chest Single View XRAY In Process Unspecified. EDMS 00:35 Forearm Right XRAY In Process Unspecified. EDMS 00:35 Tib Fib Left XRAY In Process Unspecified. EDMS 00:43 Notified ED physician of a critical lab result(s). Lactate 2.8. jw7 00:52 Pradeep Samaniego MD is Hospitalizing Provider. sp4 01:40 Provided Education on: need for admission. bm8 02:37 Patient admitted, IV remains in place. bm8 Administered Medications: 00:03 Drug: morphine IVP or IV 2 mg IVP once over 4 mins Route: IVP; Infused Over: 4 mins; bm8 Site: left upper arm; 01:37 Follow up: Response: No adverse reaction bm8 00:03 Drug: Ondansetron IVP 4 mg IVP once; over 2 minutes Route: IVP; Site: left upper arm; bm8 01:37 Follow up: Response: No adverse reaction bm8 00:03 Drug: ceFAZolin IVPB 1 grams 50 ml IVPB once over 30 mins Volume: 50 ml; Route: IVPB; bm8 Infused Over: 30 mins; Site: left upper arm; 01:37 Follow up: Response: No adverse reaction; IV Status: Completed infusion; IV Intake: bm8 100ml 00:04 Drug: Acetaminophen PO 1000 mg PO once Route: PO; bm8 01:38 Follow up: Response: No adverse reaction bm8 00:04 Not Given ( decisionn): piperacillin-tazobactam3.375 grams IVPB once over 60 mins; bm8 (mix in NS 100 mL) 01:02 Drug: Diazepam IVP 2 mg IVP once Route: IVP; Site: left antecubital; bm8 01:37 Follow up: Response: No adverse reaction bm8 01:03 Drug: morphine IVP or IV 2 mg IVP once over 4 mins Route: IVP; Infused Over: 4 mins; bm8 Site: left antecubital; 01:37 Follow up: Response: No adverse reaction bm8 01:37 Drug: vancoMYCIN IVPB 1 grams IVPB once over 2 hrs Route: IVPB; Infused Over: 2 hrs; bm8 Site: left upper arm; 02:29 Follow up: Response: No adverse reaction; IV Status: Completed infusion; IV Intake: bm8 250ml Medication: 12/17 23:06 VIS not applicable for this client. bm8 Intake: 12/18 01:37 IV: 100ml; Total: 100ml. bm8 02:29 IV: 250ml; Total: 350ml. bm8 Outcome: 00:54 Decision to Hospitalize by Provider. sp4 02:37 Admitted to Med/surg accompanied by nurse, via stretcher, room 231, with oxygen, with bm8 chart, Report called to michael rachuleta 02:37 Condition: stable 02:37 Instructed on the need for admit, 02:42 Patient left the ED. bm8 Signatures: Dispatcher [employer] EDMS Yoli [id number] Mady Valdovinos RN RN [id number] Larry Gage MD MD sp4 James Lantigua RN RN bm8 Corrections: (The following items were deleted from the chart) 12/17 23:03 23:02 PMHx: RBKA; bm8 bm8
[2023-12-19] MEDS ORDERED: MORPHINE 2 MG/ML SYR ONE (00:55)
[2023-12-19] MEDS ORDERED: LORazepam 2 MG/ML VIAL ONE (00:55)
[2023-12-19] MEDS ORDERED: ONDANSETRON 4 MG/2 ML VIAL IV PRN (01:17)
[2023-12-19] MEDS ORDERED: ACETAMINOPHEN 325 MG TABLET PO PRN (01:17)
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
[2023-12-19] MEDS: NA CHLORIDE 0.9% 1,000 ML IV SCH (03:44)
[2023-12-19 05:03] VITALS: BMI 30.3
[2023-12-19] MEDS ORDERED: MORPHINE 2 MG/ML SYR IV PRN (05:42)
[2023-12-19] MEDS: VANCOMYCIN 1 GM in NA CHLORIDE 0.9% 250 ML IVPB SCH (05:43)
[2023-12-19] MEDS ORDERED: VANCOMYCIN 250 MG in NA CHLORIDE 0.9% 100 ML IVPB ONE (06:45)
[2023-12-19] MEDS: CEFTRIAXONE 1,000 MG in NA CHLORIDE 0.9% 50 ML IVPB SCH (08:31)
[2023-12-19] MEDS: ENOXAPARIN 40 MG/0.4 ML SQ SCH (08:32)
[2023-12-19] MEDS: VANCOMYCIN 1.25 GM in NA CHLORIDE 0.9% 250 ML IVPB SCH (08:34)
--- NOTE | 2023-12-19 09:57 | P.PN ---
Date of Service: 12/19/23 Patient seen and examined. Noted mild erythema of left leg Right AKA No leukocytosis No recorded fever Blood cultures are pending. Continue antibiotics for suspected cellulitis of lower extremity Diet as tolerated Reconcile and continue home medication Social service to evaluate patient's social situation.
[2023-12-19] MEDS: POTASSIUM PHOS IN 0.9 % NACL 15 MMOL/250 ML BAG IV ONE (12:46)
--- NOTE | 2023-12-19 13:15 | RAD REPORT ---
EXAM DESCRIPTION: XR Chest, 1 View CLINICAL HISTORY: The patient is 63 years old and is Female; SIRS TECHNIQUE: Frontal view of the chest. COMPARISON: No relevant prior studies available. FINDINGS: LUNGS: Unremarkable. No consolidation. PLEURAL SPACE: Unremarkable. No pneumothorax. HEART: Unremarkable. No cardiomegaly. MEDIASTINUM: Unremarkable. Normal mediastinal contour. BONES/JOINTS: Unremarkable. No acute fracture. UPPER ABDOMEN: Elevation of left hemidiaphragm is present. IMPRESSION: No acute cardiopulmonary process. Electronically signed by: Brittney Martínez MD 12/19/2023 01:11 AM CDT RP Due to temporary technical issues with the PACS/Fluency reporting system, reports are being signed by the in house radiologist without review as a courtesy to ensure prompt reporting. The interpreting r adiologist is fully responsible for the content of the report.
--- NOTE | 2023-12-19 13:16 | RAD REPORT ---
EXAM DESCRIPTION: XR TIBIA FIBULA LEFT CLINICAL HISTORY: Female, 63 years old, leg pain TECHNIQUE: 3 views COMPARISON: None available. Reports of prior exams from 10/24/2023 and 09/14/2023. FINDINGS: Severe osteopenia limits assessment. Evidence of an acute comminuted tibial diaphyseal fra cture with mild fragment displacement and angulation. Age-indeterminate mid diaphyseal fibular fractu re. Severe chronic deformities of the knee, ankle, and partially assessed hind foot. Evidence of prior he aled fractures of the distal femur, proximal and distal tibia. Partially visualized distal femoral in ternal fixation hardware. Diffuse nonfocal soft tissue prominence. IMPRESSION: Extremely limited exam, particularly in the absence of available prior imaging. Chronic and additional age-indeterminate fractures of the tibia, described on comparison reports in similar a ppearance to the current exam. Additionally, severe diffuse osteopenia and extensive chronic deformit ies further limit assessment. Electronically signed by: Elmer Quiroz MD 12/19/2023 01:19 AM CDT RP Due to temporary technical issues with the PACS/Fluency reporting system, reports are being signed by the in house radiologist without review as a courtesy to ensure prompt reporting. The interpreting r adiologist is fully responsible for the content of the report.
--- NOTE | 2023-12-19 13:18 | RAD REPORT ---
EXAM DESCRIPTION: Forearm Right CLINICAL HISTORY: Right forearm pain COMPARISON: None. FINDINGS: 2 views of the right forearm. No new fracture identified. Remote fractures of the di stal radius and ulna. Osteopenia. Redemonstrated healing fracture in the supracondylar region of th e distal right numerous. Incomplete visualization of right humeral fixation hardware. IMPRESSION: 1. No acute fracture identified. 2. Redemonstrated healing fracture in the supracondylar region of the distal right humerus. Electronically signed by: Amando Post DO 12/19/2023 05:36 AM CDT RP [id number] Due to temporary technical issues with the PACS/Fluency reporting system, reports are being signed by the in house radiologist without review as a courtesy to ensure prompt reporting. The interpreting r adiologist is fully responsible for the content of the report.
[2023-12-19] MEDS ORDERED: VANCOMYCIN 1.25 GM in NA CHLORIDE 0.9% 250 ML IVPB SCH (14:00)
[2023-12-19] MEDS ORDERED: MORPHINE 4 MG/ML SYR IV PRN (16:48)
[2023-12-19] MEDS ORDERED: PNEUMOCOCCAL VACCINE 0.5 ML IMVAC ONE (20:00)
[2023-12-20] MEDS: HYDROCODONE/APAP 10/325 TAB PO PRN (03:02)
--- NOTE | 2023-12-20 12:13 | EKG ---
Test Date: 2023-12-19 Test Time: 00:23:19 Machinist Bench: MARIZA MEASUREMENT RESULTS: Intervals: Rate: 93 MI: 150 QRSD: 98 QT: 356 QTc: 442 [place]: P: 51 MI: 150 QRS: -16 T: 74 INTERPRETIVE STATEMENTS: Normal sinus rhythm Normal ECG Compared to ECG 12/27/2016 01:02:14 Sinus tachycardia no longer present Incomplete right bundle-branch block no longer present T-wave abnormality no longer present Electronically Signed On 12-20-23 12:12:55 CDT by Rylan Marley
--- NOTE | 2023-12-20 13:27 | P.PN ---
Subjective Date of Service: 12/20/23 Chief Complaint: Swelling in left leg Patient has no new complaint. She is tolerating her diet. She has been afebrile. Physical Examination - Vital Signs Temperature: 97.9 F Blood Pressure: 111/42 Pulse: 84 Respirations: 15 Pulse Ox (%): 92 Assessment And Plan - Plan Physical examination General: Alert and oriented x3, NAD, HEENT: Conjunctiva not pale, anicteric sclera Neck: Supple, no elevated JVD Heart: Heart sounds 1 and 2 normal, regular rhythm, normal rate, no pedal edema Lungs: Clear to auscultation bilaterally, adequate breath sounds bilaterally, no rhonchi or crackles. Abdomen: Soft, nondistended, nontender, normal bowel sounds. Extremities: No tenderness, deformities-right upper extremity, right BKA, Skin: left leg with mild erythema. no ulcers. Neuro: No focal motor deficit. Normal speech. Psychiatry: Normal mood, no agitation. Plan: Left lower extremity erythema Osteogenesis imperfecta with acute right tibia fracture Significantly improved. Doubt patient has cellulitis. X-ray demonstrated tibia fracture with mild angulation and displacement. Age indeterminant right fibula fracture. Transition IV antibiotics to oral antibiotic IV hydration Blood cultures have yielded no growth. Analgesics as needed. Impaired ambulation History of right BKA Patient is wheelchair-bound PT OT evaluation Patient is homeless Patient has agreed to go to skilled rehab. services tech assisting with arrangement. Hypokalemia Replace electrolytes as needed. Anemia of chronic disease Monitor H&H closely No overt bleeding at this time DVT prophylaxis: Lovenox Advanced directive: full code
[2023-12-20] MEDS: CIPROFLOXACIN HCL 500 MG TAB PO SCH (20:05)
[2023-12-20 21:47] VITALS: O2SAT 94
--- NOTE | 2023-12-21 12:19 | P.PN ---
Subjective Date of Service: 12/21/23 Chief Complaint: Swelling in left leg Patient is complaining of pain in the right upper extremity and inability to transfer. She is tolerating her diet. She has been afebrile. Physical Examination - Vital Signs Temperature: 97.5 F Blood Pressure: 115/57 Pulse: 79 Respirations: 13 Pulse Ox (%): 94 Assessment And Plan - Plan Physical examination General: Alert and oriented x3, NAD, HEENT: Conjunctiva not pale, anicteric sclera Neck: Supple. Heart: Heart sounds 1 and 2 normal, regular rhythm, normal rate, no pedal edema Lungs: Clear to auscultation bilaterally, adequate breath sounds bilaterally, no rhonchi or crackles. Abdomen: Soft, nondistended, nontender, normal bowel sounds. Extremities: No tenderness, deformities-right upper extremity, right BKA, Skin: left leg with mild erythema. no ulcers. Neuro: No focal motor deficit. Normal speech. Psychiatry: Normal mood, no agitation. Plan: Left lower extremity erythema Osteogenesis imperfecta with acute right tibia fracture Significantly improved. Doubt patient has cellulitis. X-ray demonstrated tibia fracture with mild angulation and displacement. Age indeterminant right fibula fracture. Patient complaining of significant pain in the right upper extremity. X-rays of the right upper extremity is ordered. Continue oral antibiotic IV hydration Blood cultures have yielded no growth. Analgesics as needed. Patient considered not a candidate for orthopedic surgery per Ortho. Splint left leg. Impaired ambulation History of right BKA Patient is wheelchair-bound Patient is homeless She want to go to skilled rehab. veterans services specialist assisting with arrangement. Hypokalemia Replace electrolytes as needed. Anemia of chronic disease Monitor H&H closely No overt bleeding at this time DVT prophylaxis: Lovenox Advanced directive: full code
--- NOTE | 2023-12-21 13:58 | RAD REPORT ---
EXAM DESCRIPTION: RAD - Humerus Right - 12/21/2023 1:51 pm CLINICAL HISTORY: Pain in the right upper extremity COMPARISON: Forearm Right dated 12/19/2023; Tib Fib Left dated 12/19/2023 FINDINGS: Prominent diffuse osteopenia. Hardware plate is present in the distal shaft of the humerus . Healing distal humeral fracture is present with lucency noted. There are ununited fracture fragment s present. Findings appear similar to 12/19/2023 comparative study.
--- NOTE | 2023-12-21 14:00 | RAD REPORT ---
EXAM DESCRIPTION: RAD - Forearm Right - 12/21/2023 1:51 pm CLINICAL HISTORY: Pain in the right upper extremity COMPARISON: Forearm Right dated 12/19/2023 FINDINGS: Diffuse osteopenia is seen. Hardware plate is present of the midshaft of the humerus. Frac ture with bony remodeling is seen supracondylar aspect of the humerus. Fracture lucency remains prese nt. Full assessment is limited by positioning.
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
[2023-12-21 17:03] VITALS: BP 112/62; TEMP 97.6
== END 2023-12-21 16:59 | DRG 543 ==
LOC: ER 22:57 → ERHOLD 12-19 01:17 → 2ND 12-19 02:36
PROVIDERS: ADMIT Family Medicine; ATTEND Internal Medicine
DX: M84.661A Pathological fracture in other disease, right tibia, initial encounter for fracture (principal); E87.20 Acidosis, unspecified; Q78.0 Osteogenesis imperfecta; Z59.00 Homelessness unspecified; S42.411 Displaced simple supracondylar fracture without intercondylar fracture of right humerus; S42.301K Unspecified fracture of shaft of humerus, right arm, subsequent encounter for fracture with nonunion; L53.9 Erythematous condition, unspecified; E87.6 Hypokalemia; M19.90 Unspecified osteoarthritis, unspecified site; D63.8 Anemia in other chronic diseases classified elsewhere; F17.210 Nicotine dependence, cigarettes, uncomplicated; Z88.0 Allergy status to penicillin; Z99.3 Dependence on wheelchair; Z63.5 Disruption of family by separation and divorce; Z79.899 Other long term (current) drug therapy; Z89.611 Acquired absence of right leg above knee
CPT/HCPCS: 36415; 71045; 80053; 82947; 83605; 85025; 85610; 85730; 87040; 93005; 99285; J0690; J0696; J1650; J2270; J2405; J2543; J7030; J7050